=== PATIENT | male | born 1960 | race Caucasian/White ===

== ENCOUNTER 2016-09-16 00:39 | Emergency (ER) | payer OTHER ==
[~2016-09-16] VITALS: Ht 167.6 cm; Wt 81.3 kg
[~2016-09-16 00:39] MED LIST: ALBU1AER9 INH; ASPI325T45 PO; B-CO-27 PO; CHOL100041 PO; CLON1TAB3 PO; DIPH25CA37 PO; DOXE150C PO; FLNIN/ NAE; GABA-113 PO; GABA1CAP4 PO; LISD50CA4 PO; LPT40 PO; LSN25 PO; MULT-506 PO; OMEP20CA9 PO; POLYSOL4 OP; TNR25 PO; ZOLP10TA6 PO
[2016-09-16] MEDS ORDERED: METHYLPREDNISOLONE 125 MG VIAL IV STA (00:47)
[2016-09-16 00:48] VITALS: TEMP 37.1; O2SAT 98; Ht 167.6 cm; Wt 81.3 kg
[2016-09-16] MEDS ORDERED: ALBUT/IPRATROP 3MG/0.5MG NEB 3 ML VIAL INH ONE (01:00)
[2016-09-16] MEDS ORDERED: SODIUM CHLORIDE 0.9% 1000ML 1,000 ML IV ONE (01:00)
[2016-09-16 01:06] VITALS: PULSE 105; O2SAT 97
[2016-09-16] MEDS ORDERED: VNTHFA/IN INH (01:06)
[2016-09-16] MEDS ORDERED: ULT50 PO (01:06)
[2016-09-16] MEDS ORDERED: LISD70CA PO (01:06)
[2016-09-16] MEDS ORDERED: BND25 PO (01:06)
[2016-09-16] MEDS ORDERED: MIRT30TA3 PO (01:06)
[2016-09-16 01:23] LABS: BUN/CREATININE RATIO 5.3 (10-20); CALCIUM 9.3 mg/dl (8.5-10.1); CREATININE 0.78 mg/dl (0.60-1.40); POTASSIUM 3.7 mmol/L (3.5-5.1)
[2016-09-16 01:26] LABS: ALB/GLOB RATIO 0.9 (0.9-2)
[2016-09-16 01:50] LABS: HEMATOCRIT 44.5 % (42-52); MEAN CELL VOLUME 88.1 fL (80-100); MEAN CORPUSCULAR HEMOGLOBIN 31.9 pg (25-34); MEAN CORPUSCULAR HGB CONC 36.2 g/dl (32-36); MEAN PLATELET VOLUME 12.2 fL (7.4-10.4); PLATELET COUNT 127 K/uL (130-400); RED BLOOD COUNT 5.05 M/uL (4.7-6.1); WHITE BLOOD COUNT 8.93 K/uL (4.8-10.8)
[2016-09-16 01:52] LABS: BASO % 0.1 %; BASO ABS # 0.01 K/uL (0-0.2); COMPLETE YES; EOS % 3.6 %; IG% 0.2 %; LARGE PLATELETS 1+; LYMPH % 22.8 %; LYMPH ABS # 2.04 K/uL (1.2-3.4); MONO % 5.9 %; NEUT % 67.4 %; PLT ESTIMATE DECREASED
[2016-09-16] MEDS ORDERED: PRED50TA PO (02:12)
[2016-09-16] MEDS ORDERED: AZITTAB PO (02:12)
[2016-09-16 02:28] VITALS: BP 155/95; PULSE 114; O2SAT 97
--- NOTE | 2016-09-16 04:04 | EMERGENCY ROOM VISIT NOTE ---
History First contact with patient: 00:42 Chief Complaint: CHEST PAIN Stated Complaint: CHEST PAIN Nursing Triage Summary: arrived via amb with bls. pt c/o a cough 4 days has been taking alot of mucinex. c/o a 10 second period of left sided cp now resolved c/o lung pain with coughing. History of Present Illness The patient is a 56 year old male who presents to the Emergency Room with complaints of posttussive chest pain that began worsening tonight. The patient states he has had a persistent dry cough for the past 4 days. He has been using Mucinex at home without significant improvement of symptoms. The patient states that his symptoms persist for about 10 seconds after coughing. The patient has a history of anxiety and evidently has an appointment later today with his psychiatrist. He has not had fever or chills. He is without shortness of breath and has not taken anything at home for his symptoms. He states that he is not a smoker, however his does smoke. The patient rates his discomfort a 7/10. Review of Systems More than 10 systems were reviewed and otherwise negative with the exception of history of present illness. Past Medical/Surgical History Medical Problems: (1) Anxiety (2) COPD (chronic obstructive pulmonary disease) (3) Coronary artery disease (4) Dyslipidemia (5) Schizoaffective disorder Surgical Problems: (1) Status post cholecystectomy (2) Status post coronary artery stent placement Family History Cancer Diabetes mellitus Gallbladder disease Heart disease Hypertension Kidney disease Kidney stones Lung disease Seizures Social History Smoking Status: Never Smoker Alcohol Use: occasionally Marital Status: Housing Status: lives with family Occupation Status: unemployed Current/Historical Medications Scheduled Albuterol Hfa (Ventolin Hfa), 2 PUFFS INH Q6H Aspirin (Aspirin), 162 MG PO DAILY Atenolol (Atenolol), 25 MG PO DAILY Atorvastatin (Atorvastatin Calcium), 40 MG PO DAILY Azithromycin (Zithromax Z-Parish), 0 PO UD B-Complex W/ Folic Acid (B Complex Plus), 1 TAB PO DAILY Cholecalciferol (D 1000), 1,000 INTER.UNIT PO DAILY Clonazepam (Klonopin), 1 MG PO QID Fluticasone Propionate (Fluticasone Propionate), 2 SPRAYS SUJEY DAILY Gabapentin (Neurontin), 600 MG PO HS Gabapentin (Gabapentin), 300 MG PO BID Lisdexamfetamine Dimesylate (Vyvanse), 50 MG PO DAILY Lisdexamfetamine Dimesylate (Vyvanse), 70 MG PO DAILY Lisinopril (Lisinopril), 2.5 MG PO DAILY Mirtazapine (Remeron), 60 MG PO HS Multivitamin (Multivitamin), 1 TAB PO DAILY Omeprazole (Prilosec), 20 MG PO DAILY Prednisone (Prednisone), 50 MG PO DAILY Zolpidem Tartrate (Zolpidem Tartrate), 10 MG PO HS Scheduled PRN Diphenhydramine Hcl (Benadryl), 25 MG PO BID PRN for ALLERGIC REACTION Polyethylene Glycol-Propylene (Systane), 1 DROP OP UD PRN for Dry Eyes Tramadol HCl (Tramadol HCl), 50 MG PO Q8 PRN for Pain Allergies Coded Allergies: Chlorpromazine (Verified Allergy, Unknown, UNKNOWN, 09/16/16) Haloperidol (Verified Allergy, Unknown, 09/16/16) Physical Exam Vital Signs Date Time Temp Pulse Resp B/P Pulse Ox O2 Delivery O2 Flow Rate FiO2 09/16/16 02:28 114 20 155/95 97 Room Air 09/16/16 01:50 119 20 138/65 97 Room Air 09/16/16 01:28 110 20 134/113 100 Nebulizer 09/16/16 01:06 105 16 97 Room Air 09/16/16 00:48 37.1 122 22 132/104 98 Room Air 09/16/16 00:48 98 Room Air 09/16/16 00:46 117 Pain Rating (0-10): 5.0 Physical Exam VITALS: Vitals are noted on the nurse's note and reviewed by myself. Vital signs stable. GENERAL: Well-developed, well-nourished, white male, who is in no acute distress and resting comfortably. Patient is cooperative with the examination. HEAD: Normocephalic atraumatic. EARS: External ear normal. External auditory canals clear, tympanic membranes pearly baptiste without erythema or effusion bilaterally. EYES: Pupils equal round and reactive to light and accommodation. Conjunctivae without injection, sclerae without icterus. Extraocular movements intact. NOSE: Patent, turbinates without inflammation or discharge. MOUTH: Mucous membranes moist. Tonsils are not enlarged. Pharynx without erythema, blood, or exudate. Uvula midline. Airway patent. NECK: Supple without nuchal rigidity. No lymphadenopathy. No thyromegaly. Cervical spine is nontender. HEART: Tachycardic rate with regular rhythm. No murmur gallop or rub. LUNGS: Coarse breath sounds throughout with diffuse wheezing and rhonchi. No crackles or rales. Medical Decision & Procedures Laboratory Results 09/16/16 00:50 Red Blood Count 5.05, Mean Corpuscular Volume 88.1, Mean Corpuscular Hemoglobin 31.9, Mean Corpuscular Hemoglobin Concent 36.2, Mean Platelet Volume 12.2, Neutrophils (%) (Auto) 67.4, Lymphocytes (%) (Auto) 22.8, Monocytes (%) (Auto) 5.9, Eosinophils (%) (Auto) 3.6, Basophils (%) (Auto) 0.1, Neutrophils # (Auto) 6.01, Lymphocytes # (Auto) 2.04, Monocytes # (Auto) 0.53, Eosinophils # (Auto) 0.32, Basophils # (Auto) 0.01 09/16/16 00:50 Test 09/16/16 00:50 09/16/16 00:52 09/16/16 01:00 White Blood Count 8.93 K/uL (4.8-10.8) Red Blood Count 5.05 M/uL (4.7-6.1) Hemoglobin 16.1 g/dL (14.0-18.0) Hematocrit 44.5 % (42-52) Mean Corpuscular Volume 88.1 fL (80-100) Mean Corpuscular Hemoglobin 31.9 pg (25-34) Mean Corpuscular Hemoglobin Concent 36.2 g/dl (32-36) Platelet Count 127 K/uL (130-400) Mean Platelet Volume 12.2 fL (7.4-10.4) Neutrophils (%) (Auto) 67.4 % Lymphocytes (%) (Auto) 22.8 % Monocytes (%) (Auto) 5.9 % Eosinophils (%) (Auto) 3.6 % Basophils (%) (Auto) 0.1 % Neutrophils # (Auto) 6.01 K/uL (1.4-6.5) Lymphocytes # (Auto) 2.04 K/uL (1.2-3.4) Monocytes # (Auto) 0.53 K/uL (0.11-0.59) Eosinophils # (Auto) 0.32 K/uL (0-0.5) Basophils # (Auto) 0.01 K/uL (0-0.2) RDW Standard Deviation 40.4 fL (36.4-46.3) RDW Coefficient of Variation 12.7 % (11.5-14.5) Immature Granulocyte % (Auto) 0.2 % Immature Granulocyte # (Auto) 0.02 K/uL (0.00-0.02) Platelet Estimate DECREASED Large Platelets 1+ Anion Gap 14.0 mmol/L (3-11) Est Creatinine Clear Calc Drug Dose 107.1 ml/min Estimated GFR () 117.8 Estimated GFR (Non- 101.6 BUN/Creatinine Ratio 5.3 (10-20) Calcium Level 9.3 mg/dl (8.5-10.1) Total Bilirubin 0.5 mg/dl (0.2-1) Aspartate Amino Transf (AST/SGOT) 68 U/L (15-37) Alanine Aminotransferase (ALT/SGPT) 282 U/L (12-78) Alkaline Phosphatase 260 U/L (45-117) Total Protein 7.9 gm/dl (6.4-8.2) Albumin 3.8 gm/dl (3.4-5.0) Globulin 4.1 gm/dl (2.5-4.0) Albumin/Globulin Ratio 0.9 (0.9-2) Lipase 155 U/L (73-393) Bedside D-Dimer 165 ng/mlFEU (0-450) Bedside Troponin I 0.000 ng/ml (0-0.045) Influenza Type A Antigen Neg for Influ A (NEG) Influenza Type B Antigen Neg for Influ B (NEG) Medications Administered Medications (Trade) Dose Ordered Sig/Kristie Route Start Time Stop Time Status Last Admin Dose Admin Methylprednisolone Sodium Succinate 125 mg 125 mg NOW STAT IV 09/16/16 00:47 09/16/16 00:50 DC 09/16/16 01:01 125 MG Sodium Chloride (Nss 1000ml) 1,000 ml @ 999 mls/hr Q1H1M ONCE IV 09/16/16 01:00 09/16/16 02:00 DC 09/16/16 01:01 999 MLS/HR Albuterol/ Ipratropium (Duoneb) 12 ml NOW ONCE INH 09/16/16 01:00 09/16/16 01:01 DC 09/16/16 01:06 12 ML ED Course Physical exam and history were performed. Nursing notes and EMR were reviewed. Patient appears to have posttussive chest pain that brought him to the emergency department today. On examination the patient is mildly tachycardic but he does not appear toxic. He is with wheezing and rhonchi on lung exam. IV access was established and labs were obtained. EKG was performed and was sinus tachycardia without ST elevation or evidence of ischemia. The patient was given 125 mg IV Solu-Medrol and a DuoNeb was ordered. Chest x-ray was performed. The patient's blood work is as above and was reviewed. He does not have a significantly elevated white blood cell count, anemia, bandemia, or significant electrolyte imbalance. Troponin and d-dimer 1 are both negative. The patient does have a mild elevation of his transaminases, however he has had this several times in the past and this appears chronic. Chest x-ray was performed and reviewed by myself without significant obvious processes. Official x-ray report is pending at the time of this dictation. Overall the patient appears stable for discharge home. He appears to have acute bronchitis or possibly a COPD exacerbation. He is not hypoxic. The patient will be given a course of Zithromax and a course of prednisone for his symptoms. He does have an appointment later today, and was asked to keep this appointment. He was otherwise invited back to the ER with any new, worsening, or concerning symptoms. The chart was completed utilizing [employer] Speech Voice Recognition Software. Grammatical errors, random word insertions, pronoun errors, and incomplete sentences are an occasional consequence of this system due to software limitations, ambient noise, and hardware issues. Any formal questions or concerns about the content, text, or information contained within the body of this dictation should be directly addressed to the provider for clarification. . Medical Decision Differential diagnosis includes, but is not limited to: Myocardial infarction, dysrhythmia, pericarditis, pneumothorax, aortic aneurysm/dissection, DVT/PE, anxiety, GERD, PUD, electrolyte imbalance, thyroid disorder, pneumonia, bronchitis, pancreatitis, and others Impression Primary Impression: Acute bronchitis Departure Information Dispostion Home / Self-Care Condition GOOD Prescriptions Prednisone (Prednisone) 50 Mg Tab 50 MG PO DAILY for 4 Days, #4 TAB Prov: Kush Goldberg PA-C 09/16/16 Azithromycin (ZITHROMAX Z-PARISH) 250 Mg Tab 0 PO UD, #1 PKT 2 TABS DAY 1, THEN 1 TAB DAILY FOR 4 DAYS Prov: Kush Goldberg PA-C 09/16/16 Forms HOME CARE DOCUMENTATION FORM, IMPORTANT VISIT INFORMATION Patient Instructions My [facility] Additional Instructions You were seen and evaluated today on an emergency basis only. This is not a substitute for, or an effort to provide, complete comprehensive medical care. It is not possible to recognize and treat all injuries or illnesses in a single emergency department visit. For this reason it is recommended that you followup with your primary care physician this week for ongoing care and evaluation. Take Zithromax as directed on the packaging. Take prednisone daily for the next 4 days. You are welcome to return to the emergency department anytime with new, worsening, or concerning symptoms.
--- NOTE | 2016-09-16 06:32 | DIAGNOSTIC IMAGING REPORT ---
CHEST 2 VIEWS ROUTINE CLINICAL HISTORY: Cough. SOB. Dyspnea COMPARISON STUDY: 10/23/2015 FINDINGS: The bones soft tissues and hemidiaphragms are normal. The cardiomediastinal silhouette is normal. The lungs are clear. The pulmonary vasculature is normal. IMPRESSION: Negative chest. Electronically signed by: Mao Baxter M.D. 09/16/2016 6:31 AM Dictated Date/Time: 09/16/2016 6:31 AM
== END 2016-09-16 02:27 | disposition home or self-care (01) ==
LOC: EDBD 00:39 → C.EDB 00:40
DX: J20.9 Acute bronchitis, unspecified (principal); J44.9 Chronic obstructive pulmonary disease, unspecified; E78.5 Hyperlipidemia, unspecified; I25.10 Atherosclerotic heart disease of native coronary artery without angina pectoris; F41.9 Anxiety disorder, unspecified; F20.9 Schizophrenia, unspecified; Z98.61 Coronary angioplasty status; Z90.49 Acquired absence of other specified parts of digestive tract; Z79.82 Long term (current) use of aspirin; Z79.899 Other long term (current) drug therapy; Z88.8 Allergy status to other drugs, medicaments and biological substances; Z80.9 Family history of malignant neoplasm, unspecified; Z83.3 Family history of diabetes mellitus; Z82.49 Family history of ischemic heart disease and other diseases of the circulatory system; Z84.1 Family history of disorders of kidney and ureter; Z82.0 Family history of epilepsy and other diseases of the nervous system; Z83.79 Family history of other diseases of the digestive system

== ENCOUNTER 2016-12-08 13:54 | Emergency (ER) | payer OTHER ==
[~2016-12-08] VITALS: Ht 175.3 cm; Wt 80.0 kg
[~2016-12-08 13:54] MED LIST changes: -ALBU1AER9 INH; -DIPH25CA37 PO; +DIPH25CA5 PO; -DOXE150C PO; +LISD70CA PO; +MIRT30TA3 PO; +ULT50 PO; +VNTHFA/IN INH
[2016-12-08 14:04] VITALS: O2SAT 93; Ht 175.3 cm; Wt 80.0 kg
[2016-12-08] MEDS ORDERED: DOXE25CA2 PO (14:40)
[2016-12-08] MEDS ORDERED: SODIUM CHLORIDE 0.9% 1000ML 1,000 ML IV STA (15:01)
[2016-12-08] MEDS ORDERED: MoRPHine SULFATE 4 MG/ML 1 ML CARP\\VIAL IV STA (15:01)
[2016-12-08 15:10] LABS: BASO % 0.4 %; BASO ABS # 0.07 K/uL (0-0.2); COMPLETE YES; EOS % 2.7 %; HEMATOCRIT 47.9 % (42-52); IG% 0.4 %; LYMPH % 26.2 %; LYMPH ABS # 4.54 K/uL (1.2-3.4); MEAN CELL VOLUME 92.3 fL (80-100); MEAN CORPUSCULAR HEMOGLOBIN 32.6 pg (25-34); MEAN CORPUSCULAR HGB CONC 35.3 g/dl (32-36); MEAN PLATELET VOLUME 13.8 fL (7.4-10.4); MONO % 4.7 %; NEUT % 65.6 %; PLATELET COUNT 172 K/uL (130-400); RED BLOOD COUNT 5.19 M/uL (4.7-6.1); WHITE BLOOD COUNT 17.35 K/uL (4.8-10.8)
[2016-12-08 15:16] LABS: INR 0.9 (0.9-1.1); PARTIAL THROMBOPLASTIN RATIO 0.9
[2016-12-08 15:21] LABS: ALT/SGPT 262 U/L (12-78); AST/SGOT 331 U/L (15-37); BLOOD UREA NITROGEN 9 mg/dl (7-18); BUN/CREATININE RATIO 8.9 (10-20); CALCIUM 9.2 mg/dl (8.5-10.1); CARBON DIOXIDE 24 mmol/L (21-32); CHLORIDE 93 mmol/L (98-107); GLUCOSE 196 mg/dl (70-99); MAGNESIUM 2.6 mg/dl (1.8-2.4); POTASSIUM 3.5 mmol/L (3.5-5.1); SODIUM 131 mmol/L (136-145)
[2016-12-08 15:29] LABS: ALKALINE PHOSPHATASE 210 U/L (45-117); CKMB/CK RATIO 2.4 (0-3.0)
--- NOTE | 2016-12-08 15:34 | DIAGNOSTIC IMAGING REPORT ---
SINGLE VIEW CHEST CLINICAL HISTORY: Change in mental status. Weakness. FINDINGS: An AP, portable, upright chest radiograph is compared to study dated 09/16/2016. The examination is degraded by portable technique and patient rotation. The cardiomediastinal silhouette is unremarkable. Chronic interstitial thickening is unchanged. The lungs and pleural spaces are otherwise clear. No pneumothorax is seen. The bony thorax is grossly intact. IMPRESSION: No acute cardiopulmonary abnormality. Electronically signed by: Rivera oSto M.D. 12/08/2016 3:33 PM Dictated Date/Time: 12/08/2016 3:32 PM
--- NOTE | 2016-12-08 15:37 | DIAGNOSTIC IMAGING REPORT ---
CT SCAN OF THE BRAIN WITHOUT IV CONTRAST CLINICAL HISTORY: Generalized weakness. Change in mental status. COMPARISON STUDY: CT the brain dated 06/04/2013. TECHNIQUE: Unenhanced axial CT scan of the brain is performed from the vertex to the skull base. Automated dose control exposure was utilized. CT DOSE: 537.48 mGy.cm FINDINGS: Brain parenchyma: There is minimal periventricular microangiopathic disease. There is no hemorrhage, mass effect, or evidence of acute territorial ischemia by CT criteria. A choroid fissure cyst is incidentally noted on the right. Saba-white matter is preserved. No extra-axial fluid collection is seen. Ventricles, sulci, cisterns: Normal in configuration. Intracranial vasculature: There is atherosclerotic calcification of the cavernous carotid arteries. Calvarium: Unremarkable. Sinuses and mastoids: The visualized paranasal sinuses are clear. The mastoid air cells are well pneumatized. Orbits: Findings suggest a chronic right orbital floor fracture. The bony orbits are otherwise grossly intact. IMPRESSION: There is no hemorrhage, mass effect, or evidence of acute territorial ischemia by CT criteria. Electronically signed by: Rivera Soto M.D. 12/08/2016 3:36 PM Dictated Date/Time: 12/08/2016 3:33 PM
[2016-12-08 16:40] LABS: URINE APPEARANCE TURBID (CLEAR); URINE BILIRUBIN NEG (NEG); URINE COLOR DK YELLOW; URINE EPITHELIAL CELL AUTO >30 /lpf (0-5); URINE NITRITE NEG (NEG); UROBILINOGEN NEG (NEG); ZZUR CULT IF INDIC CLEAN CATCH NO
[2016-12-08 16:47] LABS: MANUAL MICROSCOPIC REQUIRED? NO; REVIEW REQ? YES
[2016-12-08 16:56] LABS: URINE MUCUS PRESENT (NONE PRSENT); URINE PATH CASTS 5-10 GRANULAR CASTS /lpf (0)
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
[2016-12-08 17:20] LABS: BENZODIAZEPINE, URINE NEG (NEG); COCAINE,URINE NEG (NEG); PHENCYCLIDINE, URINE NEG (NEG)
[2016-12-08 18:08] VITALS: BP 145/89; PULSE 88; TEMP 36.4; O2SAT 98
[2016-12-11 11:02] LABS: COD UR NEGATIVE NG/ML (CUTOFF=50); HYDROCOD UR NEGATIVE NG/ML (CUTOFF=50); HYDROMOR UR NEGATIVE NG/ML (CUTOFF=50); MORPHINE UR 1640 NG/ML (CUTOFF=50); NORHYDROCODONE CONF UR NEGATIVE NG/ML (CUTOFF=50); OXYMORPH UR NEGATIVE NG/ML (CUTOFF=50)
== END 2016-12-08 18:09 | disposition home or self-care (01) ==
LOC: EDBD 13:54 → C.EDA 13:55
DX: R56.9 Unspecified convulsions (principal); F41.9 Anxiety disorder, unspecified; I25.10 Atherosclerotic heart disease of native coronary artery without angina pectoris; J44.9 Chronic obstructive pulmonary disease, unspecified; E78.5 Hyperlipidemia, unspecified; R07.9 Chest pain, unspecified; F25.9 Schizoaffective disorder, unspecified; Z83.3 Family history of diabetes mellitus; Z82.49 Family history of ischemic heart disease and other diseases of the circulatory system; Z79.899 Other long term (current) drug therapy; Z82.0 Family history of epilepsy and other diseases of the nervous system; F17.200 Nicotine dependence, unspecified, uncomplicated; Z79.4 Long term (current) use of insulin

== ENCOUNTER → 2017-01-17 | Outpatient (CLI) | payer OTHER ==
[~2017-01-17] MED LIST changes: +BND25 PO; -DIPH25CA5 PO; +DOXE25CA2 PO; -LISD50CA4 PO
--- NOTE | 2017-01-17 17:17 | EEG Procedure Note ---
EEG Procedure Note Date of Service Jan 17, 2017. Start / End Times Start Time: 10:00am End Time: 10:21am Referring Physician Dinah Case History This is a 56-year-old male with seizure-like activity. EEG for further evaluation of seizure etiology. Updated Medication list was not provided by the patient Home Medication List Scheduled Albuterol Hfa (Ventolin Hfa), 2 PUFFS INH Q6H Aspirin (Aspirin), 162 MG PO DAILY Atenolol (Atenolol), 25 MG PO DAILY Atorvastatin (Atorvastatin Calcium), 40 MG PO DAILY B-Complex W/ Folic Acid (B Complex Plus), 1 TAB PO DAILY Cholecalciferol (D 1000), 1,000 INTER.UNIT PO DAILY Clonazepam (Klonopin), 1 MG PO TID Doxepin Hcl (Sinequan), 25 MG PO BID Fluticasone Propionate (Fluticasone Propionate), 2 SPRAYS SUJEY DAILY Gabapentin (Neurontin), 600 MG PO HS Gabapentin (Gabapentin), 300 MG PO BID Lisdexamfetamine Dimesylate (Vyvanse), 70 MG PO DAILY Lisinopril (Lisinopril), 2.5 MG PO DAILY Mirtazapine (Remeron), 60 MG PO HS Multivitamin (Multivitamin), 1 TAB PO DAILY Omeprazole (Prilosec), 20 MG PO BID Zolpidem Tartrate (Zolpidem Tartrate), 10 MG PO HS Scheduled PRN Diphenhydramine Hcl (Benadryl), 25 MG PO BID PRN for ALLERGIC REACTION Polyethylene Glycol-Propylene (Systane), 1 DROP OP UD PRN for Dry Eyes Tramadol HCl (Tramadol HCl), 50 MG PO Q8 PRN for Pain Description This is a 21 electrode EEG with a single channel dedicated to limited EKG. The electrodes were placed in accordance with the International 10-20 system. At the start of the recording the patient was in an awake state. Background was well organized and composed of symmetric mixed alpha and excess beta frequencies. There was a symmetric well-formed moderate amplitude 10-11 Hz posterior dominant rhythm that was reactive to eye opening and closure. Hyperventilation was not done. Intermittent photic stimulation at various frequencies produced no abnormalities. There was no state changes or sleep transients. Interpretation This is a normal awake only routine EEG. There was no electrographic seizures or epileptiform discharges. Clinical Correlation A normal EEG does not rule out epilepsy if there is a strong clinical suspicion. Excess beta frequencies can be seen with the use of certain medications such as benzodiazepines.
== END | disposition home or self-care (01) ==
LOC: C.NEUR 09:08
PROVIDERS: ATTEND Physician Assistant
DX: R56.9 Unspecified convulsions (principal)

== ENCOUNTER → 2017-02-12 | Outpatient (CLI) | payer OTHER ==
[~2017-02-12] MED LIST changes: +GADAVIST IV PRN
--- NOTE | 2017-02-12 12:02 | DIAGNOSTIC IMAGING REPORT ---
BRAIN COMBO FOR SEIZURE CLINICAL HISTORY: R56.9 Seizure mental status change COMPARISON STUDY: No previous studies for comparison. TECHNIQUE: Utilizing a 1.5 Kassandra magnet and dedicated coil, multiplanar, multiecho imaging of the brain was performed pre and postcontrast administration. IV administration of 8.5 mL of Gadavist contrast was uneventful. Thin cut coronal T2 imaging was performed according to seizure protocol. FINDINGS: Diffusion images show no acute ischemic process. Ventricular system is midline. Signal characteristics of the cerebellar as well as cerebral hemispheres are unremarkable. No abnormal postcontrast enhancement. Minimal chronic small vessel change. Sella and parasellar regions are unremarkable. Mild mucosal thickening of the sinuses. IMPRESSION: 1. Negative MRI of the brain. 2. Mild mucosal thickening of the sinuses. The above report was generated using voice recognition software. It may contain grammatical, syntax or spelling errors. Electronically signed by: Mao Baxter M.D. 02/12/2017 12:01 PM Dictated Date/Time: 02/12/2017 11:50 AM
== END | disposition home or self-care (01) ==
LOC: C.MRIBC 10:47
PROVIDERS: ATTEND Physician Assistant
DX: R56.9 Unspecified convulsions (principal)

== ENCOUNTER 2017-05-22 01:07 | Emergency (ER) | payer OTHER ==
[~2017-05-22] VITALS: Ht 175.3 cm; Wt 80.5 kg
[~2017-05-22 01:07] MED LIST changes: -BND25 PO; +DIPH25CA5 PO; -GADAVIST IV PRN
[2017-05-22 01:11] VITALS: TEMP 36.6; Ht 175.3 cm; Wt 80.5 kg
[2017-05-22] MEDS ORDERED: CLONAZEPAM 1 MG TAB PO STA (01:33)
[2017-05-22] MEDS ORDERED: SPHSL5 SL (01:35)
[2017-05-22] MEDS ORDERED: B-COTAB18 PO (01:39)
[2017-05-22] MEDS ORDERED: CLONAZEPAM 0.5 MG TAB ONE (01:41)
--- NOTE | 2017-05-22 01:53 | EMERGENCY ROOM VISIT NOTE ---
History First contact with patient: 01:15 Chief Complaint: OTHER COMPLAINT Stated Complaint: ANXIETY History of Present Illness The patient is a 57 year old male who presents to the Emergency Room with complaints of feeling anxious about having a seizure as his currently is sick. Patient states he's also out of his clonazepam. He states he takes 3 mg of this at night to help him sleep. Dr. Nino from psychiatry prescribes this medication to him. Patient states he just was to make sure he is okay. Patient denies chest pain, dyspnea, suicidal or homicidal ideations, hallucinations, delusions, abdominal pain, fever, chills or any other medical complaints. Review of Systems See HPI for pertinent positives & negatives. A total of 10 systems reviewed and were otherwise negative. Past Medical/Surgical History Medical Problems: (1) Anxiety (2) COPD (chronic obstructive pulmonary disease) (3) Coronary artery disease (4) Dyslipidemia (5) Schizoaffective disorder (6) Seizure Surgical Problems: (1) Status post cholecystectomy (2) Status post coronary artery stent placement Family History Cancer Diabetes mellitus Gallbladder disease Heart disease Hypertension Kidney disease Kidney stones Lung disease Seizures Social History Smoking Status: Former Smoker Alcohol Use: occasionally Marital Status: Housing Status: lives with family Occupation Status: unemployed Current/Historical Medications Scheduled Asenapine Maleate (Saphris), 5 MG SL BID Aspirin (Aspirin), 162 MG PO DAILY Atenolol (Atenolol), 25 MG PO DAILY Atorvastatin (Atorvastatin Calcium), 40 MG PO DAILY B-Complex Vitamins (Vitamin B Complex), 1 TAB PO DAILY Cholecalciferol (D 1000), 1,000 INTER.UNIT PO DAILY Clonazepam (Klonopin), 1 MG PO TID Doxepin Hcl (Sinequan), 25 MG PO BID Fluticasone Propionate (Fluticasone Propionate), 2 SPRAYS SUJEY DAILY Gabapentin (Neurontin), 600 MG PO HS Gabapentin (Gabapentin), 300 MG PO BID Lisdexamfetamine Dimesylate (Vyvanse), 70 MG PO DAILY Lisinopril (Lisinopril), 2.5 MG PO DAILY Mirtazapine (Remeron), 60 MG PO HS Multivitamin (Multivitamin), 1 TAB PO DAILY Omeprazole (Prilosec), 20 MG PO BID Zolpidem Tartrate (Zolpidem Tartrate), 10 MG PO HS Scheduled PRN Albuterol Hfa (Ventolin Hfa), 2 PUFFS INH Q6H PRN for SOB/Wheezing Diphenhydramine Hcl (Benadryl), 25 MG PO BID PRN for ALLERGIC REACTION Polyethylene Glycol-Propylene (Systane), 1 DROP OP UD PRN for Dry Eyes Tramadol HCl (Tramadol HCl), 50 MG PO Q8 PRN for Pain Physical Exam Vital Signs Date Time Temp Pulse Resp B/P (MAP) Pulse Ox O2 Delivery O2 Flow Rate FiO2 05/22/17 01:11 36.6 87 18 139/91 97 Room Air Physical Exam VITALS: Vitals are noted on the nurse's note and reviewed by myself. Vital signs stable. GENERAL: Pleasant male anxious-appearing, in no acute distress, nondiaphoretic, well-developed well-nourished. SKIN: The skin was without rashes, erythema, edema, or bruising. There is no tenting of the skin. Capillary reflex less than 2 seconds. HEAD: Normocephalic atraumatic. EARS: External auditory canals clear, tympanic membranes pearly baptiste without erythema or effusion bilaterally. EYES: Pupils equal round and reactive to light and accommodation. Conjunctivae without injection, sclerae without icterus. Extraocular movements intact. NOSE: Patent, turbinates without inflammation or discharge. MOUTH: Mucous membranes moist. Pharynx without erythema or exudate. Uvula midline. Airway patent. Tongue does not deviate. NECK: Supple without nuchal rigidity. No lymphadenopathy. No thyromegaly. Cervical spine is nontender. No JVD. HEART: Regular rate and rhythm LUNGS: Clear to auscultation bilaterally without wheezes, rales or rhonchi. No dullness to percussion. No retractions or accessory muscle use. ABDOMEN: Positive bowel sounds x 4. Normal tympanic percussion. Soft, nontender, without masses or organomegaly. Tubbs sign negative. No guarding or rebound tenderness. MUSCULOSKELETAL: No muscle atrophy, erythema, or edema noted. NEURO: Patient was alert and oriented to person place and time. Normal sensation to light and sharp touch. No focal neurological deficits. Psych: Anxious appearing pleasant and cooperative Medical Decision & Procedures Medications Administered Medications (Trade) Dose Ordered Sig/Kristie Route Start Time Stop Time Status Last Admin Dose Admin Clonazepam (Klonopin Tab) 1 mg NOW STAT PO 05/22/17 01:33 05/22/17 01:34 DC 05/22/17 01:42 1 MG ED Course Prior records/ancillary studies reviewed. Triage Nursing notes reviewed. The patient's history was concerning for feeling anxious Differential diagnosis: Etiologies such as mood disorder, infection, hypoglycemia, electrolyte abnormalities, cardiac sources, intracerebral event, toxicologic, neurologic, as well as others were entertained. Physical examination: The physical examination was performed as above and was completely benign. No emergent medical pathologies were noted. ER treatment provided: Clonazepam On reassessment the patient felt better. Diagnostic interpretation by me: No diagnostic studies were performed based upon the history and physical examination. Exam and history seem consistent with anxiety over the fact that his is sick and he is out of his clonazepam. He is worried that he might have a seizure. I informed him that he might have another seizure and his would be able to call 911 if this did occur. He was agreeable and understanding to this. He was advised to obtain all his control sentences from his psychiatrist and family care doctor. Patient was neurovascularly and neurologically intact. He is well-appearing. Patient had no suicidal or homicidal ideations. By the evaluation outlined above emergent etiologies such as infection, hypoglycemia, electrolyte abnormalities, cardiac sources, intracerebral event, toxicologic, neurologic,as well as others were deemed relatively unlikely. It appears the patient is dealing with a psychiatric disturbance. The pt informed about the findings as listed above. All questions were answered and pleased with the treatment. Return instructions were outlined and the patient was discharged in stable condition. Case reviewed with my attending Referral: The patient was referred back to their primary care physician and psychiatrist for follow-up in 2 to 3 days for a recheck of the current condition. Medical Decision As above [place] Drug Monitoring [place] Search Results: patient reviewed within database, see additional documentation (patient is prescribed chronic medications of clonazepam, Ambien, tramadol and Vyvanse) Medication Reconcilliation Current Medication List: was personally reviewed by me Blood Pressure Screening Patient's blood pressure: Normal blood pressure Impression Primary Impression: Anxiety Departure Information Dispostion Home / Self-Care Condition GOOD Referrals Mao Jones M.D. (PCP) Patient Instructions My [facility] Additional Instructions DO NOT drive, drink alcohol, operate machinery, or perform dangerous activities today. You were given medications in the ER that can affect your ability to safely function or operate a vehicle. Continue your current medications. Return to the ER for severe anxiety or depression, thoughts of hurting yourself or others, inability to function, hallucinations, worsening of your condition, or as needed. Follow up with your primary care physician and psychiatry this week for a recheck of your current condition and continued care.
[2017-05-22 02:13] VITALS: BP 124/84; PULSE 84; O2SAT 99
== END 2017-05-22 02:14 | disposition home or self-care (01) ==
LOC: EDBD 01:07 → C.EDA 01:09
DX: F41.9 Anxiety disorder, unspecified (principal); J44.9 Chronic obstructive pulmonary disease, unspecified; I25.10 Atherosclerotic heart disease of native coronary artery without angina pectoris; E78.5 Hyperlipidemia, unspecified; F25.9 Schizoaffective disorder, unspecified; Z90.49 Acquired absence of other specified parts of digestive tract; Z98.61 Coronary angioplasty status; Z86.69 Personal history of other diseases of the nervous system and sense organs; Z87.891 Personal history of nicotine dependence; Z83.3 Family history of diabetes mellitus; Z82.49 Family history of ischemic heart disease and other diseases of the circulatory system; Z84.1 Family history of disorders of kidney and ureter; Z82.0 Family history of epilepsy and other diseases of the nervous system; Z79.82 Long term (current) use of aspirin; Z79.899 Other long term (current) drug therapy

== ENCOUNTER 2017-05-28 18:24 | Emergency (ER) | payer OTHER ==
[~2017-05-28] VITALS: Ht 175.3 cm; Wt 83.6 kg
[~2017-05-28 18:24] MED LIST changes: -B-CO-27 PO; +B-COTAB18 PO; +SPHSL5 SL
[2017-05-28 18:32] VITALS: TEMP 36.6; Ht 175.3 cm; Wt 83.6 kg
[2017-05-28] MEDS ORDERED: ONDANSETRON INJ 2 MG/ML 2 ML VIAL IV STA ×2 (19:15→20:39)
[2017-05-28] MEDS ORDERED: MULTI-VITAMIN INFUSION INJ 10 ML, THIAMINE HCL INJ 100 MG, FoLIC ACID INJ 1 MG in SODIU... IV ONE (19:15)
[2017-05-28] MEDS ORDERED: CLONAZEPAM 0.5 MG TAB PO STA (19:15)
[2017-05-28] MEDS ORDERED: DOXE100C4 PO (19:32)
[2017-05-28 19:42] LABS: BASO % 0.3 %; BASO ABS # 0.03 K/uL (0-0.2); COMPLETE YES; EOS % 3.4 %; HEMATOCRIT 42.7 % (42-52); IG% 0.3 %; LYMPH % 20.1 %; LYMPH ABS # 2.07 K/uL (1.2-3.4); MEAN CELL VOLUME 89.5 fL (80-100); MEAN CORPUSCULAR HGB CONC 34.7 g/dl (32-36); MEAN PLATELET VOLUME 11.4 fL (7.4-10.4); MONO % 6.4 %; NEUT % 69.5 %; PLATELET COUNT 135 K/uL (130-400); RED BLOOD COUNT 4.77 M/uL (4.7-6.1); WHITE BLOOD COUNT 10.31 K/uL (4.8-10.8)
[2017-05-28 19:52] LABS: PARTIAL THROMBOPLASTIN RATIO 0.9; PROTHROMBIN TIME (PATIENT) 10.2 SECONDS (9.0-12.0)
[2017-05-28 20:04] LABS: BUN/CREATININE RATIO 9.7 (10-20); CALCIUM 9.2 mg/dl (8.5-10.1); CREATININE 0.94 mg/dl (0.60-1.40); MAGNESIUM 2.1 mg/dl (1.8-2.4); POTASSIUM 3.7 mmol/L (3.5-5.1)
[2017-05-28 20:07] LABS: ALB/GLOB RATIO 1.2 (0.9-2)
--- NOTE | 2017-05-28 21:16 | EMERGENCY ROOM VISIT NOTE ---
ED Visit Note First contact with patient: 18:52 I have personally seen and evaluated the patient with the physician assistant scientist. I agree with the diagnostic/management decisions and have personally been involved in these decisions and agree with the diagnosis.
[2017-05-28 21:43] VITALS: BP 133/91; PULSE 75; O2SAT 98
--- NOTE | 2017-05-29 20:29 | EMERGENCY ROOM VISIT NOTE ---
History First contact with patient: 18:52 Chief Complaint: SEIZURE Stated Complaint: SEIZURE Nursing Triage Summary: Patient had a history in December. Tonight states patient was sitting in a recliner and had arms out straight and started to shake and have a seizure. After seizure patient had snoring respirations but not is awake alert and oriented but complaining of feeling exhausted. Patient states he drinks beer daily, last drink yesterday. History of Present Illness The patient is a 57 year old male who presents to the Emergency Room with complaints of seizure that occurred at home about one hour ago. The patient has had seizures in the past, and this episode was similar to a previous seizure that he had about 5 months ago. The patient was seated in a lazy boy recliner, and evidently put his arms straight outwards, became stiff, and started shaking. The event was witnessed by the patient's who contacted EMS. The patient has evidently followed with neurology for this, and he is not currently on medication as his symptoms are felt to be related to chronic alcohol use/abuse. The patient admits to drinking at least 48 ounces of beer every day. He also follows with a psychiatrist who prescribes him clonazepam 3 times daily. The patient completed that prescription of clonazepam and has not had it for some weeks. He did not drink any alcohol today. The patient is not complaining of headache, neck pain, chest pain, abdominal pain, or other injury. He does report muscle fatigue, but no other concerns. Review of Systems More than 10 systems were reviewed and otherwise negative with the exception of history of present illness. Past Medical/Surgical History Medical Problems: (1) Anxiety (2) COPD (chronic obstructive pulmonary disease) (3) Coronary artery disease (4) Dyslipidemia (5) Schizoaffective disorder (6) Seizure Surgical Problems: (1) Status post cholecystectomy (2) Status post coronary artery stent placement Family History Cancer Diabetes mellitus Gallbladder disease Heart disease Hypertension Kidney disease Kidney stones Lung disease Seizures Social History Smoking Status: Current Every Day Smoker Alcohol Use: occasionally Marital Status: Housing Status: lives with family Occupation Status: unemployed Current/Historical Medications Scheduled Asenapine Maleate (Saphris), 5 MG SL BID Aspirin (Aspirin), 162 MG PO DAILY Atenolol (Atenolol), 25 MG PO DAILY Atorvastatin (Atorvastatin Calcium), 40 MG PO DAILY B-Complex Vitamins (Vitamin B Complex), 1 TAB PO DAILY Cholecalciferol (D 1000), 1,000 INTER.UNIT PO DAILY Clonazepam (Klonopin), 1 MG PO TID Doxepin Hcl (Doxepin), 100 MG PO HS Fluticasone Propionate (Fluticasone Propionate), 2 SPRAYS SUJEY DAILY Gabapentin (Neurontin), 600 MG PO HS Gabapentin (Gabapentin), 300 MG PO BID Lisdexamfetamine Dimesylate (Vyvanse), 70 MG PO DAILY Lisinopril (Lisinopril), 2.5 MG PO DAILY Mirtazapine (Remeron), 60 MG PO HS Multivitamin (Multivitamin), 1 TAB PO DAILY Omeprazole (Prilosec), 20 MG PO QAM Zolpidem Tartrate (Zolpidem Tartrate), 10 MG PO HS Scheduled PRN Diphenhydramine Hcl (Benadryl), 25 MG PO BID PRN for ALLERGIC REACTION Polyethylene Glycol-Propylene (Systane), 1 DROP OP UD PRN for Dry Eyes Tramadol HCl (Tramadol HCl), 50 MG PO Q8 PRN for Pain Physical Exam Vital Signs Date Time Temp Pulse Resp B/P (MAP) Pulse Ox O2 Delivery O2 Flow Rate FiO2 05/28/17 21:43 75 18 133/91 98 05/28/17 20:17 91 18 139/94 98 Nasal Cannula 2.0 05/28/17 18:38 Room Air 05/28/17 18:34 106 05/28/17 18:32 36.6 101 16 187/102 92 Room Air Physical Exam VITALS: Vitals are noted on the nurse's note and reviewed by myself. Vital signs with initial hypertension that improved. GENERAL: Anxious white male who is cooperative. GCS 15. HEAD: Normocephalic atraumatic. EARS: External ear normal. External auditory canals clear, tympanic membranes pearly baptiste without erythema or effusion bilaterally. EYES: Pupils equal round and reactive to light and accommodation. Conjunctivae without injection, sclerae without icterus. Extraocular movements intact. NOSE: Patent, turbinates without inflammation or discharge. MOUTH: Mucous membranes moist. Tonsils are not enlarged. Pharynx without erythema, blood, or exudate. Uvula midline. Airway patent. No injury to the tongue. NECK: Supple without nuchal rigidity. No lymphadenopathy. No thyromegaly. Cervical spine is nontender. HEART: Regular rate and rhythm without murmurs gallops or rubs. LUNGS: Clear to auscultation bilaterally without wheezes, rales or rhonchi. No retractions or accessory muscle use. ABDOMEN: Positive normal bowel sounds x 4. Soft, nontender, without masses or organomegaly. No guarding or rebound tenderness. MUSCULOSKELETAL: No muscle atrophy, erythema, or edema noted. Full range of motion without joint tenderness in all extremities. NEURO: Patient was alert and oriented to person place and time. CN II through XII grossly intact. No focal neurological deficits SKIN: The skin was without rashes, erythema, edema, or bruising. Capillary reflex less than 2 seconds. Medical Decision & Procedures Laboratory Results 05/28/17 19:28 Red Blood Count 4.77, Mean Corpuscular Volume 89.5, Mean Corpuscular Hemoglobin 31.0, Mean Corpuscular Hemoglobin Concent 34.7, Mean Platelet Volume 11.4, Neutrophils (%) (Auto) 69.5, Lymphocytes (%) (Auto) 20.1, Monocytes (%) (Auto) 6.4, Eosinophils (%) (Auto) 3.4, Basophils (%) (Auto) 0.3, Neutrophils # (Auto) 7.17, Lymphocytes # (Auto) 2.07, Monocytes # (Auto) 0.66, Eosinophils # (Auto) 0.35, Basophils # (Auto) 0.03 05/28/17 19:28 Test 05/28/17 19:28 White Blood Count 10.31 K/uL (4.8-10.8) Red Blood Count 4.77 M/uL (4.7-6.1) Hemoglobin 14.8 g/dL (14.0-18.0) Hematocrit 42.7 % (42-52) Mean Corpuscular Volume 89.5 fL (80-100) Mean Corpuscular Hemoglobin 31.0 pg (25-34) Mean Corpuscular Hemoglobin Concent 34.7 g/dl (32-36) Platelet Count 135 K/uL (130-400) Mean Platelet Volume 11.4 fL (7.4-10.4) Neutrophils (%) (Auto) 69.5 % Lymphocytes (%) (Auto) 20.1 % Monocytes (%) (Auto) 6.4 % Eosinophils (%) (Auto) 3.4 % Basophils (%) (Auto) 0.3 % Neutrophils # (Auto) 7.17 K/uL (1.4-6.5) Lymphocytes # (Auto) 2.07 K/uL (1.2-3.4) Monocytes # (Auto) 0.66 K/uL (0.11-0.59) Eosinophils # (Auto) 0.35 K/uL (0-0.5) Basophils # (Auto) 0.03 K/uL (0-0.2) RDW Standard Deviation 40.2 fL (36.4-46.3) RDW Coefficient of Variation 12.3 % (11.5-14.5) Immature Granulocyte % (Auto) 0.3 % Immature Granulocyte # (Auto) 0.03 K/uL (0.00-0.02) Prothrombin Time 10.2 SECONDS (9.0-12.0) Prothromb Time International Ratio 1.0 (0.9-1.1) Activated Partial Thromboplast Time 23.3 SECONDS (21.0-31.0) Partial Thromboplastin Ratio 0.9 Anion Gap 7.0 mmol/L (3-11) Est Creatinine Clear Calc Drug Dose 87.8 ml/min Estimated GFR () 104.6 Estimated GFR (Non- 90.3 BUN/Creatinine Ratio 9.7 (10-20) Calcium Level 9.2 mg/dl (8.5-10.1) Magnesium Level 2.1 mg/dl (1.8-2.4) Total Bilirubin 0.4 mg/dl (0.2-1) Aspartate Amino Transf (AST/SGOT) 181 U/L (15-37) Alanine Aminotransferase (ALT/SGPT) 307 U/L (12-78) Alkaline Phosphatase 151 U/L (45-117) Total Creatine Kinase 77 U/L (39-308) Total Protein 7.4 gm/dl (6.4-8.2) Albumin 4.0 gm/dl (3.4-5.0) Globulin 3.4 gm/dl (2.5-4.0) Albumin/Globulin Ratio 1.2 (0.9-2) Ethyl Alcohol mg/dL < 3.0 mg/dl (0-3) Medications Administered Medications (Trade) Dose Ordered Sig/Kristie Route Start Time Stop Time Status Last Admin Dose Admin Multivitamins 10 ml/Thiamine HCl 100 mg/Folic Acid 1 mg/Sodium Chloride 1,011.2 ml @ 999 mls/ hr Q1H1M ONCE IV 05/28/17 19:15 05/28/17 20:15 DC 05/28/17 19:52 999 MLS/HR Clonazepam (Klonopin Tab) 1 mg NOW STAT PO 05/28/17 19:15 05/28/17 19:18 DC 05/28/17 19:24 1 MG Ondansetron HCl (Zofran Inj) 4 mg NOW STAT IV 05/28/17 20:39 05/28/17 20:40 DC 05/28/17 20:44 4 MG ED Course Physical exam and history were performed. Nursing notes, EMR, and Medication List were personally reviewed. Patient appears to have had a seizure earlier today. The patient has a history of seizures in the past. The patient is currently not medicated for seizures, as his symptoms are felt to be related to alcohol use. IV access was established and labs were obtained. The patient was given a banana bag here in the department. He states that he has not had his evening dose of clonazepam, and this was provided here in the ER. The patient was cared for under seizure precautions and he was placed on a cardiac cath lab radiology technologist. The case was discussed with my attending physician, Dr. Crowe, who also independently evaluated the patient, and remain involved in care and decision making. The patient's blood work is as above and was reviewed. He does not have a significantly elevated white blood count, gross anemia, bandemia, or significant electrolyte imbalance. Transaminases are nondiagnostic. CK was normal. Alcohol was negative. His other testing was essentially unremarkable. The patient was monitored for a few hours here in the emergency department without any relapse of his symptoms. Overall he does appear stable for discharge home. His car license form has a very been completed, and he is plugged in with neurology. He will need to follow-up with them again regarding his seizures. Of note, the patient requested that I refill several controlled substances for him including clonazepam and Ambien. The patient has made this request of us here in the ER previously, and I re-explained to him that we are not able to provide him these medications. The patient must follow with his primary care physician or specialist for this service. The patient, and family, were given instructions as below and otherwise invited back to ER with any new, worsening, or concerning symptoms. The chart was completed utilizing [employer] Speech Voice Recognition Software. Grammatical errors, random word insertions, pronoun errors, and incomplete sentences are an occasional consequence of this system due to software limitations, ambient noise, and hardware issues. Any formal questions or concerns about the content, text, or information contained within the body of this dictation should be directly addressed to the provider for clarification. . Medical Decision Differential diagnosis: Etiologies such as infection, hypoglycemia, electrolyte abnormalities, cardiac sources, intracerebral event, trauma, toxicologic, neurologic, as well as others were entertained. [place] Drug [place] Search Results: patient reviewed within database Drug Monitoring Findings: 49 prescriptions for controlled substances in the past year Blood Pressure Screening Blood pressure disposition: Elevated BP felt to be situational Impression Primary Impression: Seizure Departure Information Dispostion Home / Self-Care Condition FA[employer] Forms HOME CARE DOCUMENTATION FORM, IMPORTANT VISIT INFORMATION Patient Instructions My [facility] [address] Additional Instructions You were seen and evaluated today on an emergency basis only. This is not a substitute for, or an effort to provide, complete comprehensive medical care. It is not possible to recognize and treat all injuries or illnesses in a single emergency department visit. For this reason it is recommended that you followup with your neurology group for ongoing care and evaluation. Continue your medications at home as prescribed. You are welcome to return to the emergency department anytime with new, worsening, or concerning symptoms.
== END 2017-05-28 21:40 | disposition home or self-care (01) ==
LOC: EDBD 18:24 → C.EDC 18:25
DX: R56.9 Unspecified convulsions (principal); F41.9 Anxiety disorder, unspecified; J44.9 Chronic obstructive pulmonary disease, unspecified; I25.10 Atherosclerotic heart disease of native coronary artery without angina pectoris; E78.5 Hyperlipidemia, unspecified; F25.9 Schizoaffective disorder, unspecified; Z80.9 Family history of malignant neoplasm, unspecified; Z83.3 Family history of diabetes mellitus; Z83.79 Family history of other diseases of the digestive system; Z84.1 Family history of disorders of kidney and ureter; Z83.6 Family history of other diseases of the respiratory system; F17.210 Nicotine dependence, cigarettes, uncomplicated; Z79.82 Long term (current) use of aspirin; Z79.899 Other long term (current) drug therapy

== ENCOUNTER 2018-12-26 21:02 | Observation (INO) ==
[2018-12-26] MEDS ORDERED: fentaNYL citrate 100 MCG/2 ML VIAL IV STA (21:23)
[2018-12-26] MEDS ORDERED: NITROGLYCERIN 2% OINTMENT 30GM TUBE EXT STA (21:23)
[2018-12-26] MEDS ORDERED: ONDANSETRON INJ 2 MG/ML 2 ML VIAL IV STA (21:23)
[2018-12-26 21:30] LABS: Basophils # (auto) 0.03 K/uL (0-0.2); Basophils % (auto) 0.4 %; Eosinophils # (auto) 0.48 K/uL (0-0.5); Eosinophils % (auto) 5.8 %; Hematocrit (blood only) 41.8 % (42-52); Hemoglobin 14.6 g/dL (14.0-18.0); Immature Granulocytes # (auto) 0.03 K/uL (0.00-0.02); Immature Granulocytes % (auto) 0.4 %; Lymphocytes # (auto) 2.62 K/uL (1.2-3.4); Lymphocytes % (auto) 31.9 %; Mean Corpuscular Hgb Conc 34.9 g/dL (32-36); Mean Corpuscular Volume 87.8 fL (80-100); Mean Platelet Volume 12.3 fL (7.4-10.4); Monocytes # (auto) 0.52 K/uL (0.11-0.59); Monocytes % (auto) 6.3 %; Neutrophils # (auto) 4.53 K/uL (1.4-6.5); Neutrophils % (auto) 55.2 %; Platelet Count 135 K/uL (130-400); RDW Coefficient of Variation 12.8 % (11.5-14.5); RDW Standard Deviation 40.9 fL (36.4-46.3); Red Blood Count 4.76 M/uL (4.7-6.1); White Blood Count 8.21 K/uL (4.8-10.8)
[2018-12-26 21:37] LABS: BUN Creatinine Ratio 14.8 (10-20); Calcium 9.5 mg/dl (8.5-10.1); Creatinine Clr Calc Pharmacy 104.5 ml/min; Est GFR (African American) 116.1; Est GFR (Non-African American) 100.2; Potassium 3.9 mmol/L (3.5-5.1)
[2018-12-26 21:40] LABS: Albumin Globulin Ratio 1.1 (0.9-2); Bilirubin,Total 0.4 mg/dl (0.2-1); Globulin 3.8 gm/dl (2.5-4.0); Total Protein 7.8 gm/dl (6.4-8.2)
--- NOTE | 2018-12-26 21:40 | XRay Report ---
XR chest 1V portable CLINICAL HISTORY: Chest Pain COMPARISON STUDY: Chest radiograph July 10, 2018. FINDINGS: Lung volumes are diminished. Lungs are clear. There is no pneumothorax or pleural effusion. Cardiac size is normal. Mediastinal contours are normal. There is no evidence for pulmonary edema. IMPRESSION: Low lung volumes. No acute cardiopulmonary findings. Electronically signed by: Thiago Kirby M.D. 12/26/2018 9:38 PM
[2018-12-26 23:26] LABS: Partial Thromboplastin Ratio 0.9
--- NOTE | 2018-12-26 23:53 | Emergency Department Note ---
Entered by Kay Hayes acting as a scribe for Ector Villa MD History of Present Illness General Chief complaint: Chest Pain Source: patient History of Present Illness Onset (ago): hour(s) (just prior to arrival) Location: chest Radiation: non-radiation Pain Consistency: + other (persistent ) Maximum Pain Intensity: 6 Current Pain Intensity: 5 Quality: + burning and + stabbing Associated symptoms: + diaphoresis, + shortness of breath and + other (negative leg swelling or pain ) Treatments prior to arrival: other (Nitro ) The patient is a 58 year old male who presents to the Emergency Room with complaints of persistent chest pain that began just prior to arrival. The patient states that he feels as though the muscles in his chest are burning and stabbing. The patient rates his pain at a 5/10 currently, and states that his pain was previously 8/10 prior to getting Nitro by EMS. The patient states that he feels short of breath and was sweating when his pain began. He states that he was exerting himself somewhat while doing housework when his pain began. The patient denies radiation of his pain, and states that his symptoms are not similar to his prior episode of GA. The patient denies leg swelling or pain. He denies a history of blood clots. Home Medications Home Medications Medication Instructions Recorded Confirmed Type aspirin 162 mg PO BID 07/10/18 12/26/18 History atenolol 25 mg PO DAILY 07/10/18 12/26/18 History atorvastatin 40 mg PO DAILY 07/10/18 12/26/18 History cholecalciferol (vitamin D3) 1,000 unit PO DAILY 07/10/18 12/26/18 History [Vitamin D3] doxepin 100 mg PO HS 07/10/18 12/26/18 History fluticasone propionate 2 spray INTRANASAL DAILY 07/10/18 12/26/18 History gabapentin 300 mg PO BID 07/10/18 12/26/18 History lisdexamfetamine [Vyvanse] 70 mg PO DAILY 07/10/18 12/26/18 History lisinopril 2.5 mg PO DAILY 07/10/18 12/26/18 History mirtazapine 60 mg PO HS 07/10/18 12/26/18 History multivitamin 1 tab PO DAILY 07/10/18 12/26/18 History nitroglycerin 0.4 mg SUBLINGUAL UD PRN 07/10/18 12/26/18 History omeprazole 20 mg PO BID 07/10/18 12/26/18 History tramadol 50 mg PO Q6 PRN 07/10/18 12/26/18 History vitamin B complex 1 tab PO DAILY 07/10/18 12/26/18 History meloxicam 15 mg tablet 15 mg PO DAILY 09/15/18 12/26/18 History gabapentin 300 mg capsule 600 mg PO HS 12/15/18 12/26/18 History Allergies Allergy/AdvReac Type Severity Reaction Status Date / Time Iodinated Contrast- Oral and Allergy Intermediate nausea , Verified 12/26/18 22:02 IV Dye vomiting and vertigo chlorpromazine Allergy Unknown UNKNOWN Verified 12/26/18 22:02 haloperidol Allergy Unknown Unknown Verified 12/26/18 22:02 Past Med/Surg History Medical History ADHD (Chronic) Asperger syndrome (Chronic) Schizoaffective disorder (Chronic) Anxiety (Chronic) COPD exacerbation (Resolved) Coronary artery disease (Chronic) Dyslipidemia (Chronic) COPD (chronic obstructive pulmonary disease) (Chronic) Umbilical hernia (Chronic) Alcohol intoxication (Resolved) Chest pain (Resolved) Bedbug bite (Resolved) Bronchitis (Resolved) Chest pain (Resolved) Dyspnea (Resolved) Anxiety attack (Resolved) Chest pain (Resolved) Back strain (Resolved) Lumbar contusion (Resolved) Seizure (Resolved) Urticaria (Resolved) Acute bronchitis (Resolved) Surgical History Status post coronary artery stent placement (Chronic) "LAD" Status post cholecystectomy (Chronic) Family History Other Family history non-contributory Social History Preferred Language: Slovak Beliefs That Will Affect Care: None marital status: Current Living Situation: Spouse Feels Safe at Home: Yes Smoking Status: Never smoker Tobacco Type: cigarettes Cigarettes Per Day: 3 Review of Systems See HPI for pertinent positives & negatives. and A total of 10 systems reviewed and were otherwise negative Physical Exam Vital Signs Vital Signs - 24 hr 12/26/18 21:05 12/26/18 21:29 12/26/18 21:31 Temperature 36.7 C Temperature Source Oral Sepsis Recent Fever Within 48 Hours No Sepsis New/Unexplained Change in Mental Status No Sepsis Action Taken by Nursing No Action Required Pulse Rate 84 80 Pulse Rate from SpO2 Sensor Respiratory Rate 19 15 Respiratory Effort / Characteristics Non-Labored Spontaneous Respiratory Depth Normal Blood Pressure 122/80 91/65 L Blood Pressure Mean 94 73 Pulse Oximetry 98 97 Oxygen Delivery Method Room Air Room Air Room Air 12/26/18 21:33 12/26/18 22:01 12/26/18 22:31 Temperature Temperature Source Sepsis Recent Fever Within 48 Hours Sepsis New/Unexplained Change in Mental Status Sepsis Action Taken by Nursing Pulse Rate 76 73 72 Pulse Rate from SpO2 Sensor 76 73 72 Respiratory Rate 13 15 13 Respiratory Effort / Characteristics Respiratory Depth Blood Pressure 105/65 115/67 108/70 Blood Pressure Mean 78 83 82 Pulse Oximetry 96 96 96 Oxygen Delivery Method Room Air Room Air Room Air 12/26/18 23:01 12/26/18 23:31 Temperature Temperature Source Sepsis Recent Fever Within 48 Hours Sepsis New/Unexplained Change in Mental Status Sepsis Action Taken by Nursing Pulse Rate 71 75 Pulse Rate from SpO2 Sensor 72 75 Respiratory Rate 23 20 Respiratory Effort / Characteristics Respiratory Depth Blood Pressure 110/64 106/61 Blood Pressure Mean 79 76 Pulse Oximetry 95 95 Oxygen Delivery Method Room Air Room Air Constitutional: Vital signs reviewed. Eyes: Pupils are equal round reactive to light. Conjunctiva are noninjected. ENT: Pharynx is clear without erythema or exudate. Mucous membranes are moist. Neck supple without meningeal signs. Respiratory: Clear to auscultation bilaterally. Breath sounds are equal bilatera lly. Cardiovascular: Regular rate and rhythm. No rubs or gallops. GI: Soft, nondistended and nontender. Bowel sounds are present. Musculoskeletal: No peripheral edema. No lower extremity tenderness. Integumentary: No cyanosis. Neurological: The patient is awake and alert. No focal deficits. Psychiatric: Slightly anxious appearing. Course 2119: Past medical records reviewed. The patient was evaluated in room A12B. A complete history and physical exam was performed. 2139: Upon reevaluation, the patient states that his pain has completely resolved. 2216: The patient is agreeable to staying in the hospital. He denies chest pain at this time. 2228: I discussed the case with Dr. Luther Hospitalist who accepts the patient for further evaluation. Consultations Consultation #1: I discussed the case with Dr. Luther Hospitalist who accepts the patient for further evaluation. Time: :29 Administered Medications Discontinued Medications Fentanyl Citrate (Fentanyl Citrate) 50 mcg IV NOW STA Stop: 12/26/18 21:24 Last Admin: 12/26/18 21:33 Dose: 50 mcg Documented by: [id number] Nitroglycerin (Nitro-Bid 2%) 1 inch EXT NOW STA Stop: 12/26/18 21:24 Last Admin: 12/26/18 21:33 Dose: 1 inch Documented by: [id number] Ondansetron HCl (Zofran) 4 mg IV NOW STA Stop: 12/26/18 21:24 Last Admin: 12/26/18 21:33 Dose: 4 mg Documented by: [id number] Medical Decision Making Differential Diagnosis Differential diagnoses include unstable angina, GA, PE, pleurisy, pneumonia, and others were considered. Medical Records Attestation: I reviewed the patient's medical records. (The patient was seen in 2014 by Cardiology. He has a history of premature CAD with anterior lateral GA with a history of a LAD stent in 1999. ) Home Medications Current Medication List: was personally reviewed by me Laboratory Data Attestation: I reviewed the patient's lab results. Result diagrams: 12/26/18 21:04 12/26/18 21:04 Lab Results 12/26/18 12/26/18 12/26/18 Range/Units 21:04 21:04 21:04 WBC 8.21 (4.8-10.8) K/uL RBC 4.76 (4.7-6.1) M/uL Hgb 14.6 (14.0-18.0) g/dL Hct 41.8 L (42-52) % MCV 87.8 (80-100) fL MCH 30.7 (25-34) pg MCHC 34.9 (32-36) g/dL RDW Std Deviation 40.9 (36.4-46.3) fL RDW Coeff of Dana 12.8 (11.5-14.5) % Plt Count 135 (130-400) K/uL MPV 12.3 H (7.4-10.4) fL Immature Gran % (Auto) 0.4 % Neut % (Auto) 55.2 % Lymph % (Auto) 31.9 % [place] % (Auto) 6.3 % Eos % (Auto) 5.8 % Baso % (Auto) 0.4 % Immature Gran # (Auto) 0.03 H (0.00-0.02) K/uL Neut # (Auto) 4.53 (1.4-6.5) K/uL Lymph # (Auto) 2.62 (1.2-3.4) K/uL [place] # (Auto) 0.52 (0.11-0.59) K/uL Eos # (Auto) 0.48 (0-0.5) K/uL Baso # (Auto) 0.03 (0-0.2) K/uL APTT 24.0 (21.0-31.0) Seconds PTT Ratio 0.9 POC D-Dimer (0-450) ng/mlFEU Sodium 138 (136-145) mmol/L Potassium 3.9 (3.5-5.1) mmol/L Chloride 103 (98-107) mmol/L Carbon Dioxide 27 (21-32) mmol/L Anion Gap 8.0 (3-11) BUN 12 (7-18) mg/dl Creatinine 0.78 (0.6-1.4) mg/dl Est Cr Clr Drug Dosing 104.5 ml/min Est GFR ( Amer) 116.1 Est GFR (Non-Af Amer) 100.2 BUN/Creatinine Ratio 14.8 (10-20) Glucose 125 H (70-99) mg/dl Calcium 9.5 (8.5-10.1) mg/dl Magnesium 2.0 (1.8-2.4) mg/dl Total Bilirubin 0.4 (0.2-1) mg/dl AST 40 H (15-37) U/L ALT 90 H (12-78) U/L Alkaline Phosphatase 155 H (45-117) U/L POC Troponin I (0-0.045) ng/ml Total Protein 7.8 (6.4-8.2) gm/dl Albumin 4.0 (3.4-5.0) gm/dl Globulin 3.8 (2.5-4.0) gm/dl Albumin/Globulin Ratio 1.1 (0.9-2) Lipase 85 (73-393) U/L 12/26/18 Range/Units 21:25 WBC (4.8-10.8) K/uL RBC (4.7-6.1) M/uL Hgb (14.0-18.0) g/dL Hct (42-52) % MCV (80-100) fL MCH (25-34) pg MCHC (32-36) g/dL RDW Std Deviation (36.4-46.3) fL RDW Coeff of Dana (11.5-14.5) % Plt Count (130-400) K/uL MPV (7.4-10.4) fL Immature Gran % (Auto) % Neut % (Auto) % Lymph % (Auto) % [place] % (Auto) % Eos % (Auto) % Baso % (Auto) % Immature Gran # (Auto) (0.00-0.02) K/uL Neut # (Auto) (1.4-6.5) K/uL Lymph # (Auto) (1.2-3.4) K/uL [place] # (Auto) (0.11-0.59) K/uL Eos # (Auto) (0-0.5) K/uL Baso # (Auto) (0-0.2) K/uL APTT (21.0-31.0) Seconds PTT Ratio POC D-Dimer 169 (0-450) ng/mlFEU Sodium (136-145) mmol/L Potassium (3.5-5.1) mmol/L Chloride (98-107) mmol/L Carbon Dioxide (21-32) mmol/L Anion Gap (3-11) BUN (7-18) mg/dl Creatinine (0.6-1.4) mg/dl Est Cr Clr Drug Dosing ml/min Est GFR ( Amer) Est GFR (Non-Af Amer) BUN/Creatinine Ratio (10-20) Glucose (70-99) mg/dl Calcium (8.5-10.1) mg/dl Magnesium (1.8-2.4) mg/dl Total Bilirubin (0.2-1) mg/dl AST (15-37) U/L ALT (12-78) U/L Alkaline Phosphatase (45-117) U/L POC Troponin I < 0.03 (0-0.045) ng/ml Total Protein (6.4-8.2) gm/dl Albumin (3.4-5.0) gm/dl Globulin (2.5-4.0) gm/dl Albumin/Globulin Ratio (0.9-2) Lipase (73-393) U/L Imaging Data Radiologist's Impression: Radiology results as stated below per my review and the radiologist's interpretation: XR chest 1V portable CLINICAL HISTORY: Chest Pain COMPARISON STUDY: Chest radiograph July 10, 2018. FINDINGS: Lung volumes are diminished. Lungs are clear. There is no pneumothorax or pleural effusion. Cardiac size is normal. Mediastinal contours are normal. There is no evidence for pulmonary edema. IMPRESSION: Low lung volumes. No acute cardiopulmonary findings. Electronically signed by: Thiago Kirby M.D. 12/26/2018 9:38 PM ECG Data Attestation: I personally reviewed and interpreted this ECG as follows: Indication: chest pain Rate (beats per minute): 85 Rhythm: normal sinus Findings: no PVC and no ST elevation Blood Pressure Blood Pressure Findings: Normal blood pressure MDM Narrative I did evaluate the patient as noted above. Patient is presenting with chest pain, shortness of breath and diaphoresis. The patient has a prior history of GA with a stent in the LAD. He did have some relief with nitroglycerin prior to arrival but still complains of 5 out of 10 chest pain. The patient was placed on a continuous cardiac cath lab radiology technologist. I did treat the patient with nitroglycerin paste 1 inch to the anterior chest wall. He was also given fentanyl and Zofran IV. I did order and personally review the patient's 12-lead EKG as described above. His twelve-lead EKG does not show any evidence of acute ischemia. I did order and personally reviewed the images of the patient's chest x-ray as described above. His chest x-ray is unremarkable. I did order and review the patient's blood work as noted in the electronic medical record. Troponin and d- dimer are both negative. CBC is unremarkable. Electrolytes are unremarkable. I did reassess the patient. I did discuss the test results with the patient. He is completely asymptomatic at this time without any chest discomfort or shortness of breath. I did recommend hospitalization for repeat cardiac enzymes and further evaluation. I did discuss the case with the hospitalist and geriatric case manager. Impression & Plan Precordial chest pain Discharge Plan Visit Data Chief Complaint: Chest Pain ED Provider: Ector Villa Discharge Problem: Precordial chest pain Patient Disposition: Being Evaluated by Hospitalist Forms Stand Alone Forms: Call Back Authorization, My [facility] Prescriptions Prescriptions: No Action meloxicam 15 mg tablet 15 mg PO DAILY RF: 0 atorvastatin 40 mg tablet 40 mg PO DAILY RF: 0 atenolol 25 mg tablet 25 mg PO DAILY RF: 0 doxepin 100 mg capsule 100 mg PO HS RF: 0 gabapentin 300 mg capsule 300 mg PO BID RF: 0 aspirin 325 mg Tablet 162 mg PO BID RF: 0 multivitamin Tablet 1 tab PO DAILY RF: 0 vitamin B complex Tablet 1 tab PO DAILY RF: 0 cholecalciferol (vitamin D3) [Vitamin D3] 1,000 unit Capsule 1,000 unit PO DAILY RF: 0 fluticasone propionate 50 mcg/actuation spray,suspension 2 spray Intranasal DAILY RF: 0 lisinopril 2.5 mg tablet 2.5 mg PO DAILY RF: 0 Vyvanse 70 mg capsule 70 mg PO DAILY RF: 0 mirtazapine 30 mg tablet 60 mg PO HS RF: 0 nitroglycerin 0.4 mg tablet, sublingual 0.4 mg Sublingual UD PRN (Reason: Chest Pain) RF: 0 tramadol 50 mg tablet 50 mg PO Q6 PRN (Reason: Pain) RF: 0 omeprazole 20 mg capsule,delayed release(DR/EC) 20 mg PO BID RF: 0 gabapentin 300 mg capsule 600 mg PO HS RF: 0 Referrals Referrals: Mao Jones MD [Primary Care Provider] - The scribe's documentation has been prepared under my direction and personally reviewed by me in its entirety. I confirm that the note above accurately reflects all work, treatment, procedures, and medical decision making performed by me.
[2018-12-27] MEDS ORDERED: SODIUM CHLORIDE 0.9% 500 ML IV ONE (00:13)
[2018-12-27] MEDS ORDERED: LORazepam 0.25 MG/0.5 ML VIAL IV STA (00:13)
[2018-12-27] MEDS ORDERED: OXYCODONE HCL IR 5 MG TAB (IMMEDIATE RELEASE) PO STA (00:13)
--- NOTE | 2018-12-27 00:15 | History & Physical Report ---
Date of Service December 27, 2018 Assessment & Plan (1) Precordial chest pain: hx premature CAD status post LAD stent ([facility] [place], [place]) Rule out ACS hypertension, BP on the lower side hyperlipidemia on statin Rx COPD as per records, poor status at baseline past tobacco/alcohol abuse as per records anxiety/mood disorder, patient markedly anxious during encounter Abnormal LFTs possible fatty liver Hyperglycemia possible prediabetes, hemoglobin A1c of 6 from 2018 OBS PCU Continue aspirin, beta-tatyana, statin meds Follow troponin TTE, Cardiology consult RE chest pain Anxiolytic as needed Follow LFTs, liver ultrasound if with progression Check hemoglobin A1c DVT prophylaxis. Lovenox subcu Full code History of Present Illness Chief Complaint: Chest pain Primary Care Provider: Mao Jones MD History obtained from patient and records. Medical history significant for premature CAD status post LAD stent ([facility] [place], 1999), hypertension, hyperlipidemia, COPD as per records, past tobacco/alcohol abuse as per records, anxiety/mood disorder, Asperger's syndrome as per patient. Recent confinement January 2015 for chest pain. ACS ruled out with normal exercise stress echo. Patient was doing some woodwork at home yesterday when he experience burning, stabbing, pricking chest pain going into his lungs, with shortness of breath, diaphoreses. No relief with nitro tab taken at home. Subsequent relief with nitro spray and aspirin administered by EMS. Chest pain unlike anything he has had before. Medical History as above Surgical History : Cholecystectomy, Family History : Heart disease, diabetes, IBD Personal/Social history : Past tobacco/alcohol abuse as per records, disabled Allergies Allergy/AdvReac Type Severity Reaction Status Date / Time Iodinated Contrast- Oral and Allergy Intermediate nausea , Verified 12/26/18 22:02 IV Dye vomiting and vertigo chlorpromazine Allergy Unknown UNKNOWN Verified 12/26/18 22:02 haloperidol Allergy Unknown Unknown Verified 12/26/18 22:02 Home Medications Home Medications Medication Instructions Recorded Confirmed Type aspirin 162 mg PO BID 07/10/18 12/26/18 History atenolol 25 mg PO DAILY 07/10/18 12/26/18 History atorvastatin 40 mg PO DAILY 07/10/18 12/26/18 History cholecalciferol (vitamin D3) 1,000 unit PO DAILY 07/10/18 12/26/18 History [Vitamin D3] doxepin 100 mg PO HS 07/10/18 12/26/18 History fluticasone propionate 2 spray INTRANASAL DAILY 07/10/18 12/26/18 History gabapentin 300 mg PO BID 07/10/18 12/26/18 History lisdexamfetamine [Vyvanse] 70 mg PO DAILY 07/10/18 12/26/18 History lisinopril 2.5 mg PO DAILY 07/10/18 12/26/18 History mirtazapine 60 mg PO HS 07/10/18 12/26/18 History multivitamin 1 tab PO DAILY 07/10/18 12/26/18 History nitroglycerin 0.4 mg SUBLINGUAL UD PRN 07/10/18 12/26/18 History omeprazole 20 mg PO BID 07/10/18 12/26/18 History tramadol 50 mg PO Q6 PRN 07/10/18 12/26/18 History vitamin B complex 1 tab PO DAILY 07/10/18 12/26/18 History meloxicam 15 mg tablet 15 mg PO DAILY 09/15/18 12/26/18 History gabapentin 300 mg capsule 600 mg PO HS 12/15/18 12/26/18 History Past Med/Surg History Medical History ADHD (Chronic) Asperger syndrome (Chronic) Schizoaffective disorder (Chronic) Anxiety (Chronic) COPD exacerbation (Resolved) Coronary artery disease (Chronic) Dyslipidemia (Chronic) COPD (chronic obstructive pulmonary disease) (Chronic) Umbilical hernia (Chronic) Alcohol intoxication (Resolved) Chest pain (Resolved) Bedbug bite (Resolved) Bronchitis (Resolved) Chest pain (Resolved) Dyspnea (Resolved) Anxiety attack (Resolved) Chest pain (Resolved) Back strain (Resolved) Lumbar contusion (Resolved) Seizure (Resolved) Urticaria (Resolved) Acute bronchitis (Resolved) Surgical History Status post coronary artery stent placement (Chronic) "LAD" Status post cholecystectomy (Chronic) Family History Other Family history non-contributory Social History Preferred Language: Egyptian Communication Ability: Effective Renal Technician Required: No Beliefs That Will Affect Care: None marital status: Current Living Situation: Significant Other Other Information That Helps Us Care for You: No Feels Safe at Home: Yes Safety Concerns: Feels Safe At This Time Smoking Status: Never smoker Tobacco Type: cigarettes Cigarettes Per Day: 3 Do You Dip or Chew Tobacco: No Second Hand Exposure: No Tobacco Cessation Education Requested by Patient: No Hx Alcohol Use: No Hx Substance Use: No Review of Systems Review of Systems: As per HPI, all 10 systems reviewed, all other ROS negative Physical Exam Physical Exam: GENERAL: Anxious, no respiratory distress SKIN: Normal color, warm HEENT: Bespectacled, [place] palpebral conjunctivae, no ptosis, dry buccal mucosa NECK : Supple, short neck, no tenderness CHEST : CTA, no tenderness HEART : RRR, no obvious murmurs ABDOMEN: Some distention, nontender EXTREMITIES : No LE swelling/tenderness, no other conspicuous deformities noted NEUROLOGIC : Coherent, no facial asymmetry, no other gross focality Results & Data Vital Signs (Past 12 Hours) Vital Signs Temp Pulse Resp BP Pulse Ox 12/27/18 00:01 77 22 96/72 L 98 12/26/18 23:31 75 20 106/61 95 12/26/18 23:01 71 23 110/64 95 12/26/18 22:31 72 13 108/70 96 12/26/18 22:01 73 15 115/67 96 12/26/18 21:33 76 13 105/65 96 12/26/18 21:31 80 15 91/65 L 97 12/26/18 21:05 36.7 C 84 19 122/80 98 Laboratory Results Chest x-ray showed Low lung volumes. No acute cardiopulmonary findings. EKG as per my interpretation : Rate 85, NSR, incomplete right bundle branch block, no ischemia Diagnostic Findings Laboratory Results WBC 8.21 K/uL (4.8-10.8) 12/26/18 21:04 RBC 4.76 M/uL (4.7-6.1) 12/26/18 21:04 Hgb 14.6 g/dL (14.0-18.0) 12/26/18 21:04 Hct 41.8 % (42-52) L 12/26/18 21:04 MCV 87.8 fL (80-100) 12/26/18 21:04 MCH 30.7 pg (25-34) 12/26/18 21:04 MCHC 34.9 g/dL (32-36) 12/26/18 21:04 RDW Std Deviation 40.9 fL (36.4-46.3) 12/26/18 21:04 RDW Coeff of Dana 12.8 % (11.5-14.5) 12/26/18 21:04 Plt Count 135 K/uL (130-400) 12/26/18 21:04 MPV 12.3 fL (7.4-10.4) H 12/26/18 21:04 Immature Gran % (Auto) 0.4 % 12/26/18 21:04 Neut % (Auto) 55.2 % 12/26/18 21:04 Lymph % (Auto) 31.9 % 12/26/18 21:04 [place] % (Auto) 6.3 % 12/26/18 21:04 Eos % (Auto) 5.8 % 12/26/18 21:04 Baso % (Auto) 0.4 % 12/26/18 21:04 Immature Gran # (Auto) 0.03 K/uL (0.00-0.02) H 12/26/18 21:04 Neut # (Auto) 4.53 K/uL (1.4-6.5) 12/26/18 21:04 Lymph # (Auto) 2.62 K/uL (1.2-3.4) 12/26/18 21:04 [place] # (Auto) 0.52 K/uL (0.11-0.59) 12/26/18 21:04 Eos # (Auto) 0.48 K/uL (0-0.5) 12/26/18 21:04 Baso # (Auto) 0.03 K/uL (0-0.2) 12/26/18 21:04 APTT 24.0 Seconds (21.0-31.0) 12/26/18 21:04 PTT Ratio 0.9 12/26/18 21:04 POC D-Dimer 169 ng/mlFEU (0-450) 12/26/18 21:25 Sodium 138 mmol/L (136-145) 12/26/18 21:04 Potassium 3.9 mmol/L (3.5-5.1) 12/26/18 21:04 Chloride 103 mmol/L (98-107) 12/26/18 21:04 Carbon Dioxide 27 mmol/L (21-32) 12/26/18 21:04 Anion Gap 8.0 (3-11) 12/26/18 21:04 BUN 12 mg/dl (7-18) 12/26/18 21:04 Creatinine 0.78 mg/dl (0.6-1.4) 12/26/18 21:04 Est Cr Clr Drug Dosing 104.5 ml/min 12/26/18 21:04 Est GFR ( Amer) 116.1 12/26/18 21:04 Est GFR (Non-Af Amer) 100.2 12/26/18 21:04 BUN/Creatinine Ratio 14.8 (10-20) 12/26/18 21:04 Glucose 125 mg/dl (70-99) H 12/26/18 21:04 Calcium 9.5 mg/dl (8.5-10.1) 12/26/18 21:04 Magnesium 2.0 mg/dl (1.8-2.4) 12/26/18 21:04 Total Bilirubin 0.4 mg/dl (0.2-1) 12/26/18 21:04 AST 40 U/L (15-37) H 12/26/18 21:04 ALT 90 U/L (12-78) H 12/26/18 21:04 Alkaline Phosphatase 155 U/L (45-117) H 12/26/18 21:04 POC Troponin I < 0.03 ng/ml (0-0.045) 12/26/18 21:25 Troponin I < 0.015 ng/ml (0-0.045) 12/26/18 23:37 Total Protein 7.8 gm/dl (6.4-8.2) 12/26/18 21:04 Albumin 4.0 gm/dl (3.4-5.0) 12/26/18 21:04 Globulin 3.8 gm/dl (2.5-4.0) 12/26/18 21:04 Albumin/Globulin Ratio 1.1 (0.9-2) 12/26/18 21:04 Lipase 85 U/L (73-393) 12/26/18 21:04
[2018-12-27] MEDS ORDERED: LACTATED RINGER'S 1,000 ML IV ONE (01:21)
[2018-12-27] MEDS ORDERED: ACETAMINOPHEN 325 MG TAB PO PRN ×2 (01:21→05:40)
[2018-12-27] MEDS ORDERED: TRAMADOL HCL 50 MG TABLET PO PRN (01:21)
[2018-12-27] MEDS ORDERED: MoRPHine SULFATE 2 MG/ML CARP IV PRN (01:21)
[2018-12-27] MEDS ORDERED: METOCLOPRAMIDE HCL INJ 5 MG/ML 2 ML VIAL IV PRN (01:21)
[2018-12-27] MEDS ORDERED: LORazepam 0.25 MG/0.5 ML VIAL IV PRN (01:21)
[2018-12-27] MEDS: DOXEPIN HCL 50 MG CAPSULE PO SCH ×2 (02:24→19:54)
[2018-12-27] MEDS: MIRTAZAPINE TAB 15 MG TAB PO SCH ×2 (02:24→19:53)
[2018-12-27] MEDS: GABAPENTIN 600 MG TAB PO SCH ×2 (02:25→19:53)
[2018-12-27 06:16] LABS: Prothrombin Time 10.2 Seconds (9.0-12.0)
[2018-12-27 06:17] LABS: Partial Thromboplastin Ratio 0.9; Partial Thromboplastin Time 24.2 Seconds (21.0-31.0)
[2018-12-27 06:32] LABS: Alanine Aminotransferase 64 U/L (12-78); Albumin Level 3.4 gm/dl (3.4-5.0); Aspartate Aminotransferase 29 U/L (15-37); BUN Creatinine Ratio 13.7 (10-20); Basophils # (auto) 0.03 K/uL (0-0.2); Basophils % (auto) 0.4 %; Blood Urea Nitrogen 9 mg/dl (7-18); Calcium 8.4 mg/dl (8.5-10.1); Carbon Dioxide 29 mmol/L (21-32); Chloride 104 mmol/L (98-107); Creatinine Clr Calc Pharmacy 127.3 ml/min; Eosinophils # (auto) 0.43 K/uL (0-0.5); Eosinophils % (auto) 6.1 %; Est GFR (Non-African American) 108.7; Glucose 121 mg/dl (70-99); Hematocrit (blood only) 38.5 % (42-52); Hemoglobin 13.5 g/dL (14.0-18.0); Immature Granulocytes # (auto) 0.02 K/uL (0.00-0.02); Immature Granulocytes % (auto) 0.3 %; Lymphocytes # (auto) 2.51 K/uL (1.2-3.4); Lymphocytes % (auto) 35.8 %; Mean Corpuscular Hgb Conc 35.1 g/dL (32-36); Mean Corpuscular Volume 89.5 fL (80-100); Mean Platelet Volume 12.1 fL (7.4-10.4); Monocytes # (auto) 0.49 K/uL (0.11-0.59); Neutrophils # (auto) 3.54 K/uL (1.4-6.5); Neutrophils % (auto) 50.4 %; Platelet Count 114 K/uL (130-400); Platelet Estimate Decreased (Normal); Potassium 3.5 mmol/L (3.5-5.1); RBC Morphology Unremarkable; RDW Standard Deviation 42.4 fL (36.4-46.3); Sodium 137 mmol/L (136-145); White Blood Count 7.02 K/uL (4.8-10.8)
[2018-12-27 06:37] LABS: Albumin Globulin Ratio 1.1 (0.9-2); Alkaline Phosphatase 128 U/L (45-117); Bilirubin,Total 0.6 mg/dl (0.2-1); Chol HDL Ratio 5; Cholesterol 177 mg/dl (0-200); Globulin 3.2 gm/dl (2.5-4.0); HDL Cholesterol 37 mg/dl; LDL Cholesterol Calculated 78 mg/dl; Total Protein 6.6 gm/dl (6.4-8.2); Triglycerides 309 mg/dl (0-150); Troponin I < 0.015 ng/ml (0-0.045); VLDL Cholesterol 62 mg/dl
[2018-12-27] MEDS: ATENOLOL 25 MG TABLET PO SCH (08:12)
[2018-12-27] MEDS: ENOXAPARIN INJ 40 MG/0.4 ML SYR SQ SCH (08:12)
[2018-12-27] MEDS: GABAPENTIN 300 MG CAP PO SCH ×2 (08:12→14:03)
[2018-12-27] MEDS: ATORVASTATIN 40 MG TAB PO SCH (08:12)
[2018-12-27] MEDS: LISINOPRIL 2.5 MG TAB PO SCH (08:12)
[2018-12-27] MEDS: VITAMIN B COMPLEX TAB PO SCH (08:13)
[2018-12-27] MEDS: MULTIVITAMIN TAB PO SCH (08:13)
[2018-12-27] MEDS: ASPIRIN 81 MG ECTAB PO SCH ×2 (08:13→19:53)
[2018-12-27] MEDS: PANTOprazole 40 MG TAB PO SCH ×2 (08:13→19:53)
[2018-12-27] MEDS: FLUTICASONE PROPIONATE NA SPR 16 GM BTL SCH (08:14)
--- NOTE | 2018-12-27 13:29 | Cardiology Consultation ---
Date of Consultation December 27, 2018 Assessment & Plan (1) Precordial chest pain: Initial EKGs echocardiogram and cardiac enzymes negative for ischemia. Symptoms were profound and relieved by sublingual nitroglycerin in the setting of known coronary artery disease We will proceed with diagnostic stress testing. Patient has orthopedic limitations but feels he may be able to walk on treadmill. We will anticipate stress echocardiogram in a.m. if patient unable to proceed adequately we will proceed to dobutamine stress test Patient agreeable to plan We will continue aspirin atenolol and atorvastatin as ordered. Patient report any new symptoms or recurrence of complaints (2) ADHD: (3) Asperger syndrome: (4) Coronary artery disease: (5) Dyslipidemia: Laboratory studies reviewed will address pending results of testing History of Present Illness Reason for Consultation: Acute chest pain Requesting Physician: Dr. Matias Attending Physician: Arias Matias MD History of Present Illness Patient is a 58-year-old male with known coronary artery disease having suffered an acute anterolateral myocardial infarction in June 2000. He was treated initially with thrombolytic therapy following by diagnostic cardiac cath eterization/coronary intervention receiving a stent to the proximal left understanding per records. Underlying medical history is as listed below. Patient presents today noting having recent stable cardiac history no recent complaints of chest pain angina or shortness of breath until admission. Notes having developed severe substernal sharp burning pain radiating to the jaw angle back and shoulders. Symptoms were excruciatingly severe and debilitating. Ultimately resolving with nitroglycerin spray by paramedics patient having tried 2 sublingual nitroglycerin prior to the presentation. Initial enzymes and EKGs do not reflect acute myocardial injury He has had no further recurrence of symptoms since hospitalization. Notes no recent change in exercise capacity. Denies orthopnea PND peripheral edema. Notes no fevers chills unexplained infections. Appetite weighted been stable. He is a non-smoker. Denies headache or visual changes. Notes no bleeding difficulties melena hematochezia dysuria hematuria. Notes activity is limited by chronic back and orthopedic issues but feels he may be able to walk on treadmill Allergies Allergy/AdvReac Type Severity Reaction Status Date / Time Iodinated Contrast- Oral and Allergy Intermediate nausea , Verified 12/26/18 22:02 IV Dye vomiting and vertigo chlorpromazine Allergy Unknown UNKNOWN Verified 12/26/18 22:02 haloperidol Allergy Unknown Unknown Verified 12/26/18 22:02 Home Medications Home Medications Medication Instructions Recorded Confirmed Type aspirin 162 mg PO BID 07/10/18 12/26/18 History atenolol 25 mg PO DAILY 07/10/18 12/26/18 History atorvastatin 40 mg PO DAILY 07/10/18 12/26/18 History cholecalciferol (vitamin D3) 1,000 unit PO DAILY 07/10/18 12/26/18 History [Vitamin D3] doxepin 100 mg PO HS 07/10/18 12/26/18 History fluticasone propionate 2 spray INTRANASAL DAILY 07/10/18 12/26/18 History gabapentin 300 mg PO BID 07/10/18 12/26/18 History lisdexamfetamine [Vyvanse] 70 mg PO DAILY 07/10/18 12/26/18 History lisinopril 2.5 mg PO DAILY 07/10/18 12/26/18 History mirtazapine 60 mg PO HS 07/10/18 12/26/18 History multivitamin 1 tab PO DAILY 07/10/18 12/26/18 History nitroglycerin 0.4 mg SUBLINGUAL UD PRN 07/10/18 12/26/18 History omeprazole 20 mg PO BID 07/10/18 12/26/18 History tramadol 50 mg PO Q6 PRN 07/10/18 12/26/18 History vitamin B complex 1 tab PO DAILY 07/10/18 12/26/18 History meloxicam 15 mg tablet 15 mg PO DAILY 09/15/18 12/26/18 History gabapentin 300 mg capsule 600 mg PO HS 12/15/18 12/26/18 History Patient History Medical History ADHD (Chronic) Asperger syndrome (Chronic) Schizoaffective disorder (Chronic) Anxiety (Chronic) COPD exacerbation (Resolved) Coronary artery disease (Chronic) Dyslipidemia (Chronic) COPD (chronic obstructive pulmonary disease) (Chronic) Umbilical hernia (Chronic) Alcohol intoxication (Resolved) Chest pain (Resolved) Bedbug bite (Resolved) Bronchitis (Resolved) Chest pain (Resolved) Dyspnea (Resolved) Anxiety attack (Resolved) Chest pain (Resolved) Back strain (Resolved) Lumbar contusion (Resolved) Seizure (Resolved) Urticaria (Resolved) Acute bronchitis (Resolved) Surgical History Status post coronary artery stent placement (Chronic) "LAD" Status post cholecystectomy (Chronic) Family History Other Family history non-contributory Social History Preferred Language: Lithuanian Communication Ability: Effective Nascar Racer Required: No Beliefs That Will Affect Care: None marital status: Current Living Situation: Significant Other Other Information That Helps Us Care for You: No Feels Safe at Home: Yes Safety Concerns: Feels Safe At This Time Smoking Status: Never smoker Tobacco Type: cigarettes Cigarettes Per Day: 3 Do You Dip or Chew Tobacco: No Second Hand Exposure: No Tobacco Cessation Education Requested by Patient: No Hx Alcohol Use: No Hx Substance Use: No Review of Systems Review of Systems: All systems reviewed & are unremarkable except as noted in HPI & below Physical Exam Constitutional: WD/WN, vitals as above no acute distress Eyes: PERRL, conjunctivae normal, anicteric sclerae ENMT: external ear and nose normal, oropharynx normal Neck: trachea midline, no thyromegaly Respiratory: normal respiratory effort, lungs clear to auscultation Cardiovascular: Rate/Rhythm: regular rate and regular rhythm Heart Sounds: normal S1 and normal S2; no gallop, no murmur and no cardiac rub Vessels: no JVD Gastrointestinal (Abdomen): normal bowel sounds, soft, nontender, no hepatosplenomegaly Musculoskeletal: no cyanosis or clubbing, extremities motor strength 5/5 Skin: no rashes, warm and dry Results & Data Vital Signs (Past 12 Hours) Vital Signs Temp Pulse Pulse Resp BP Pulse Ox 12/27/18 11:58 36.8 C 67 16 130/77 98 12/27/18 08:00 71 12/27/18 07:20 36.4 C L 66 16 122/80 98 12/27/18 03:45 36.4 C L 74 18 119/76 97 12/27/18 02:55 69 12/27/18 02:19 36.4 C L 73 18 108/72 90 Laboratory Results Laboratory Results - last 24 hr 12/26/18 12/26/18 12/26/18 21:04 21:04 21:04 WBC 8.21 RBC 4.76 Hgb 14.6 Hct 41.8 L MCV 87.8 MCH 30.7 MCHC 34.9 RDW Std Deviation 40.9 RDW Coeff of Dana 12.8 Plt Count 135 MPV 12.3 H Immature Gran % (Auto) 0.4 Neut % (Auto) 55.2 Lymph % (Auto) 31.9 [place] % (Auto) 6.3 Eos % (Auto) 5.8 Baso % (Auto) 0.4 Immature Gran # (Auto) 0.03 H Neut # (Auto) 4.53 Lymph # (Auto) 2.62 Gove # (Auto) 0.52 Eos # (Auto) 0.48 Baso # (Auto) 0.03 Platelet Estimate RBC Morphology PT INR APTT 24.0 PTT Ratio 0.9 POC D-Dimer Sodium 138 Potassium 3.9 Chloride 103 Carbon Dioxide 27 Anion Gap 8.0 BUN 12 Creatinine 0.78 Est Cr Clr Drug Dosing 104.5 Est GFR ( Amer) 116.1 Est GFR (Non-Af Amer) 100.2 BUN/Creatinine Ratio 14.8 Glucose 125 H Estimat Average Glucose Hemoglobin A1c Calcium 9.5 Magnesium 2.0 Total Bilirubin 0.4 AST 40 H ALT 90 H Alkaline Phosphatase 155 H POC Troponin I Troponin I Total Protein 7.8 Albumin 4.0 Globulin 3.8 Albumin/Globulin Ratio 1.1 Triglycerides Cholesterol LDL Cholesterol, Calc VLDL Cholesterol, Calc HDL Cholesterol Cholesterol/HDL Ratio Lipase 85 12/26/18 12/26/18 12/26/18 21:04 21:25 23:37 WBC RBC Hgb Hct MCV MCH MCHC RDW Std Deviation RDW Coeff of Dana Plt Count MPV Immature Gran % (Auto) Neut % (Auto) Lymph % (Auto) [place] % (Auto) Eos % (Auto) Baso % (Auto) Immature Gran # (Auto) Neut # (Auto) Lymph # (Auto) [place] # (Auto) Eos # (Auto) Baso # (Auto) Platelet Estimate RBC Morphology PT INR APTT PTT Ratio POC D-Dimer 169 Sodium Potassium Chloride Carbon Dioxide Anion Gap BUN Creatinine Est Cr Clr Drug Dosing Est GFR ( Amer) Est GFR (Non-Af Amer) BUN/Creatinine Ratio Glucose Estimat Average Glucose Pending Hemoglobin A1c Pending Calcium Magnesium Total Bilirubin AST ALT Alkaline Phosphatase POC Troponin I < 0.03 Troponin I < 0.015 Total Protein Albumin Globulin Albumin/Globulin Ratio Triglycerides Cholesterol LDL Cholesterol, Calc VLDL Cholesterol, Calc HDL Cholesterol Cholesterol/HDL Ratio Lipase 12/27/18 12/27/18 12/27/18 05:26 05:26 05:26 WBC 7.02 RBC 4.30 L Hgb 13.5 L Hct 38.5 L MCV 89.5 MCH 31.4 MCHC 35.1 RDW Std Deviation 42.4 RDW Coeff of Dana 13.0 Plt Count 114 L MPV 12.1 H Immature Gran % (Auto) 0.3 Neut % (Auto) 50.4 Lymph % (Auto) 35.8 Gove % (Auto) 7.0 Eos % (Auto) 6.1 Baso % (Auto) 0.4 Immature Gran # (Auto) 0.02 Neut # (Auto) 3.54 Lymph # (Auto) 2.51 Gove # (Auto) 0.49 Eos # (Auto) 0.43 Baso # (Auto) 0.03 Platelet Estimate Decreased L RBC Morphology Unremarkable PT INR APTT 24.2 PTT Ratio 0.9 POC D-Dimer Sodium 137 Potassium 3.5 Chloride 104 Carbon Dioxide 29 Anion Gap 4.0 BUN 9 Creatinine 0.64 Est Cr Clr Drug Dosing 127.3 Est GFR ( Amer) 126.0 Est GFR (Non-Af Amer) 108.7 BUN/Creatinine Ratio 13.7 Glucose 121 H Estimat Average Glucose Hemoglobin A1c Calcium 8.4 L Magnesium Total Bilirubin 0.6 AST 29 ALT 64 Alkaline Phosphatase 128 H POC Troponin I Troponin I < 0.015 Total Protein 6.6 Albumin 3.4 Globulin 3.2 Albumin/Globulin Ratio 1.1 Triglycerides 309 H Cholesterol 177 LDL Cholesterol, Calc 78 VLDL Cholesterol, Calc 62 HDL Cholesterol 37 Cholesterol/HDL Ratio 5 Lipase 12/27/18 05:26 WBC RBC Hgb Hct MCV MCH MCHC RDW Std Deviation RDW Coeff of Dana Plt Count MPV Immature Gran % (Auto) Neut % (Auto) Lymph % (Auto) [place]ove % (Auto) Eos % (Auto) Baso % (Auto) Immature Gran # (Auto) Neut # (Auto) Lymph # (Auto) Gove # (Auto) Eos # (Auto) Baso # (Auto) Platelet Estimate RBC Morphology PT 10.2 INR 1.0 APTT PTT Ratio POC D-Dimer Sodium Potassium Chloride Carbon Dioxide Anion Gap BUN Creatinine Est Cr Clr Drug Dosing Est GFR ( Amer) Est GFR (Non-Af Amer) BUN/Creatinine Ratio Glucose Estimat Average Glucose Hemoglobin A1c Calcium Magnesium Total Bilirubin AST ALT Alkaline Phosphatase POC Troponin I Troponin I Total Protein Albumin Globulin Albumin/Globulin Ratio Triglycerides Cholesterol LDL Cholesterol, Calc VLDL Cholesterol, Calc HDL Cholesterol Cholesterol/HDL Ratio Lipase ECG Additional Comments: 26-DEC-2018 21:07:39 [facility]-EDSTAT ROUTINE RETRIEVAL Normal sinus rhythm Normal ECG When compared with ECG of 10-JUL-2018 01:23, No significant change was found Confirmed by Zeus Atkins ([id number]) on 12/27/2018 11:14:05 AM
--- NOTE | 2018-12-27 18:09 | Hospitalist Progress Note ---
Date of Service December 27, 2018 Assessment & Plan (1) Precordial chest pain: Severe chest pain, relieved by NTG. Known CAD. No acute EKG changes. Serial troponins negative. Seen in consultation by Cardiology. Stress test planned for tomorrow. (2) Coronary artery disease: Chest pain as discussed above. Know CAD, s/p PCI. Continue aspirin, atenolol, statin. (3) Dyslipidemia: LDL-c 78. Continue atorvastatin. (4) Schizoaffective disorder: Continue usual meds. (5) DVT prophylaxis: SQ enoxaparin. Ambulate. (6) Discharge planning issues: Anticipated discharge to home. Family Medicine follow-up with Dr. Jones. Subjective Recheck for chest pain. Patient seen in their room around 1530. Admitted last night with chest pain relieved by nitroglycerin. Feels better today. No chest pain or shortness of breath. Seen earlier today by Cardiology. Stress testing recommended and is planned for tomorrow. Review of Systems: Constitutional- no fever. Cardiac- as noted above. Pulmonary- no cough or SOB. GI- constipated; no nausea, vomiting. - no urinary symptoms. Otherwise, as noted above. Physical Exam Constitutional: no acute distress Respiratory: no respiratory distress Auscultation: lungs clear to auscultation bilaterally Cardiovascular: Rate/Rhythm: regular rate and regular rhythm Heart Sounds: no gallop, no murmur and no cardiac rub Vessels: no JVD Extremities: no calf tenderness and no edema Gastrointestinal (Abdomen): normal bowel sounds, soft, nontender, no hepatosplenomegaly Skin: no rashes, warm and dry Psychiatric: Orientation: alert and oriented x 3 Results & Data Vital Signs (Past 12 Hours) Vital Signs Temp Pulse Pulse Resp BP Pulse Ox 12/27/18 15:30 36.5 C 73 20 120/71 97 12/27/18 14:57 71 12/27/18 11:58 36.8 C 67 16 130/77 98 12/27/18 08:00 71 12/27/18 07:20 36.4 C L 66 16 122/80 98 Laboratory Results Laboratory Results - last 24 hr 12/26/18 12/26/18 12/26/18 21:04 21:04 21:04 WBC 8.21 RBC 4.76 Hgb 14.6 Hct 41.8 L MCV 87.8 MCH 30.7 MCHC 34.9 RDW Std Deviation 40.9 RDW Coeff of Dana 12.8 Plt Count 135 MPV 12.3 H Immature Gran % (Auto) 0.4 Neut % (Auto) 55.2 Lymph % (Auto) 31.9 [place] % (Auto) 6.3 Eos % (Auto) 5.8 Baso % (Auto) 0.4 Immature Gran # (Auto) 0.03 H Neut # (Auto) 4.53 Lymph # (Auto) 2.62 [place] # (Auto) 0.52 Eos # (Auto) 0.48 Baso # (Auto) 0.03 Platelet Estimate RBC Morphology PT INR APTT 24.0 PTT Ratio 0.9 POC D-Dimer Sodium 138 Potassium 3.9 Chloride 103 Carbon Dioxide 27 Anion Gap 8.0 BUN 12 Creatinine 0.78 Est Cr Clr Drug Dosing 104.5 Est GFR ( Amer) 116.1 Est GFR (Non-Af Amer) 100.2 BUN/Creatinine Ratio 14.8 Glucose 125 H Estimat Average Glucose Hemoglobin A1c Calcium 9.5 Magnesium 2.0 Total Bilirubin 0.4 AST 40 H ALT 90 H Alkaline Phosphatase 155 H POC Troponin I Troponin I Total Protein 7.8 Albumin 4.0 Globulin 3.8 Albumin/Globulin Ratio 1.1 Triglycerides Cholesterol LDL Cholesterol, Calc VLDL Cholesterol, Calc HDL Cholesterol Cholesterol/HDL Ratio Lipase 85 12/26/18 12/26/18 12/26/18 21:04 21:25 23:37 WBC RBC Hgb Hct MCV MCH MCHC RDW Std Deviation RDW Coeff of Dana Plt Count MPV Immature Gran % (Auto) Neut % (Auto) Lymph % (Auto) [place] % (Auto) Eos % (Auto) Baso % (Auto) Immature Gran # (Auto) Neut # (Auto) Lymph # (Auto) [place] # (Auto) Eos # (Auto) Baso # (Auto) Platelet Estimate RBC Morphology PT INR APTT PTT Ratio POC D-Dimer 169 Sodium Potassium Chloride Carbon Dioxide Anion Gap BUN Creatinine Est Cr Clr Drug Dosing Est GFR ( Amer) Est GFR (Non-Af Amer) BUN/Creatinine Ratio Glucose Estimat Average Glucose Pending Hemoglobin A1c Pending Calcium Magnesium Total Bilirubin AST ALT Alkaline Phosphatase POC Troponin I < 0.03 Troponin I < 0.015 Total Protein Albumin Globulin Albumin/Globulin Ratio Triglycerides Cholesterol LDL Cholesterol, Calc VLDL Cholesterol, Calc HDL Cholesterol Cholesterol/HDL Ratio Lipase 12/27/18 12/27/18 12/27/18 05:26 05:26 05:26 WBC 7.02 RBC 4.30 L Hgb 13.5 L Hct 38.5 L MCV 89.5 MCH 31.4 MCHC 35.1 RDW Std Deviation 42.4 RDW Coeff of Dana 13.0 Plt Count 114 L MPV 12.1 H Immature Gran % (Auto) 0.3 Neut % (Auto) 50.4 Lymph % (Auto) 35.8 [place] % (Auto) 7.0 Eos % (Auto) 6.1 Baso % (Auto) 0.4 Immature Gran # (Auto) 0.02 Neut # (Auto) 3.54 Lymph # (Auto) 2.51 [place] # (Auto) 0.49 Eos # (Auto) 0.43 Baso # (Auto) 0.03 Platelet Estimate Decreased L RBC Morphology Unremarkable PT INR APTT 24.2 PTT Ratio 0.9 POC D-Dimer Sodium 137 Potassium 3.5 Chloride 104 Carbon Dioxide 29 Anion Gap 4.0 BUN 9 Creatinine 0.64 Est Cr Clr Drug Dosing 127.3 Est GFR ( Amer) 126.0 Est GFR (Non-Af Amer) 108.7 BUN/Creatinine Ratio 13.7 Glucose 121 H Estimat Average Glucose Hemoglobin A1c Calcium 8.4 L Magnesium Total Bilirubin 0.6 AST 29 ALT 64 Alkaline Phosphatase 128 H POC Troponin I Troponin I < 0.015 Total Protein 6.6 Albumin 3.4 Globulin 3.2 Albumin/Globulin Ratio 1.1 Triglycerides 309 H Cholesterol 177 LDL Cholesterol, Calc 78 VLDL Cholesterol, Calc 62 HDL Cholesterol 37 Cholesterol/HDL Ratio 5 Lipase 12/27/18 05:26 WBC RBC Hgb Hct MCV MCH MCHC RDW Std Deviation RDW Coeff of Dana Plt Count MPV Immature Gran % (Auto) Neut % (Auto) Lymph % (Auto) [place] % (Auto) Eos % (Auto) Baso % (Auto) Immature Gran # (Auto) Neut # (Auto) Lymph # (Auto) [place] # (Auto) Eos # (Auto) Baso # (Auto) Platelet Estimate RBC Morphology PT 10.2 INR 1.0 APTT PTT Ratio POC D-Dimer Sodium Potassium Chloride Carbon Dioxide Anion Gap BUN Creatinine Est Cr Clr Drug Dosing Est GFR ( Amer) Est GFR (Non-Af Amer) BUN/Creatinine Ratio Glucose Estimat Average Glucose Hemoglobin A1c Calcium Magnesium Total Bilirubin AST ALT Alkaline Phosphatase POC Troponin I Troponin I Total Protein Albumin Globulin Albumin/Globulin Ratio Triglycerides Cholesterol LDL Cholesterol, Calc VLDL Cholesterol, Calc HDL Cholesterol Cholesterol/HDL Ratio Lipase ECG Additional Comments: EKG performed last evening at 2107 reviewed and demonstrated normal sinus rhythm at 85/minute, no acute ST or T wave abnormalities.
[2018-12-27] MEDS: DOCUSATE SODIUM 100 MG CAP PO SCH (19:11)
[2018-12-28 06:14] LABS: Estimated Average Glucose 120 mg/dl; Hemoglobin A1C 5.8 % (4.5-5.6)
[2018-12-28] MEDS: ATORVASTATIN 40 MG TAB PO SCH (09:08)
[2018-12-28] MEDS: MULTIVITAMIN TAB PO SCH (09:08)
[2018-12-28] MEDS: GABAPENTIN 300 MG CAP PO SCH (09:08)
[2018-12-28] MEDS: ATENOLOL 25 MG TABLET PO SCH (09:08)
[2018-12-28] MEDS: LISINOPRIL 2.5 MG TAB PO SCH (09:08)
[2018-12-28] MEDS: ASPIRIN 81 MG ECTAB PO SCH (09:08)
[2018-12-28] MEDS: FLUTICASONE PROPIONATE NA SPR 16 GM BTL SCH (09:09)
[2018-12-28] MEDS: PANTOprazole 40 MG TAB PO SCH (09:09)
[2018-12-28] MEDS: VITAMIN B COMPLEX TAB PO SCH (09:09)
[2018-12-28] MEDS: DOCUSATE SODIUM 100 MG CAP PO SCH (09:09)
[2018-12-28] MEDS: ENOXAPARIN INJ 40 MG/0.4 ML SYR SQ SCH (09:10)
--- NOTE | 2018-12-28 10:21 | Cardiology Progress Note ---
Date of Service December 28, 2018 Assessment & Plan (1) Precordial chest pain: EKGs cardiac enzymes negative for ischemia. Stress echocardiography today notable for only mild hypertensive blood pressure response. He exercised 8 minutes on a Bentley protocol and graded and 90% age- predicted maximum heart rate without symptoms. There is no evidence of ischemia by EKG or echographic criteria Continue usual antihypertensive and cardiac medications follow-up with Dr. Tyson (2) ADHD: (3) Asperger syndrome: (4) Coronary artery disease: (5) Dyslipidemia: Laboratory studies reviewed urged continued use of atorvastatin Subjective Since and examined both pre-and post stress echocardiography this morning. No chest pains or cardiac symptoms overnight. No arrhythmias. Physical Exam Constitutional: WD/WN, vitals as above no acute distress Eyes: PERRL, conjunctivae normal, anicteric sclerae ENMT: external ear and nose normal, oropharynx normal Neck: trachea midline, no thyromegaly Respiratory: normal respiratory effort, lungs clear to auscultation Cardiovascular: Rate/Rhythm: regular rate and regular rhythm Heart Sounds: normal S1 and normal S2; no gallop, no murmur and no cardiac rub Vessels: no JVD Gastrointestinal (Abdomen): normal bowel sounds, soft, nontender, no hepatosplenomegaly Musculoskeletal: no cyanosis or clubbing, extremities motor strength 5/5 Skin: no rashes, warm and dry Results & Data Vital Signs (Past 12 Hours) Vital Signs Temp Pulse Pulse Resp BP Pulse Ox Pulse Ox 12/28/18 07:42 66 12/28/18 07:04 36.5 C 67 19 118/72 94 12/28/18 04:11 36.7 C 68 18 118/74 98 12/28/18 01:21 96 12/28/18 00:03 36.6 C 67 19 134/76 97 12/27/18 23:52 70
--- NOTE | 2018-12-28 11:43 | Hospitalist Progress Note ---
Date of Service December 28, 2018 Assessment & Plan (1) Precordial chest pain: Severe chest pain, relieved by NTG. Known CAD. No acute EKG changes. Serial troponins negative. Seen in consultation by Cardiology. No stress-induced ischemia per treadmill stress echo. Continue usual cardiac meds. (2) Coronary artery disease: Chest pain as discussed above. Know CAD, s/p PCI. Continue aspirin, atenolol, statin. (3) Dyslipidemia: LDL-c 78. Continue atorvastatin. (4) Schizoaffective disorder: History of schizoaffective disorder and Asperger syndrome. Continue usual meds. Monthly follow-up with Psychiatry. (5) DVT prophylaxis: SQ enoxaparin. Ambulate. (6) Discharge planning issues: Discharge to home. Family Medicine follow-up with Dr. Jones. Subjective Recheck for chest pain. Patient seen in their room around 10:50 Treadmill stress echo went well this morning- no stress-induced ischemia. Review of Systems: Constitutional- no fever. Cardiac- as noted above. Pulmonary- no cough or SOB. GI- constipated; no nausea, vomiting. - no urinary symptoms. Otherwise, as noted above. Physical Exam Constitutional: no acute distress Respiratory: no respiratory distress Auscultation: lungs clear to auscultation bilaterally Cardiovascular: Rate/Rhythm: regular rate and regular rhythm Heart Sounds: no gallop, no murmur and no cardiac rub Vessels: no JVD Extremities: no calf tenderness and no edema Gastrointestinal (Abdomen): normal bowel sounds, soft, nontender, no hepatosplenomegaly Inspection/Auscultation: + abdomen abnormal to inspection (umbilical hernia) Skin: no rashes, warm and dry Psychiatric: Orientation: alert and oriented x 3 Results & Data Vital Signs (Past 12 Hours) Vital Signs Temp Pulse Pulse Resp BP Pulse Ox Pulse Ox 12/28/18 11:41 36.7 C 76 20 121/53 L 97 12/28/18 07:42 66 12/28/18 07:04 36.5 C 67 19 118/72 94 12/28/18 04:11 36.7 C 68 18 118/74 98 12/28/18 01:21 96 12/28/18 00:03 36.6 C 67 19 134/76 97 12/27/18 23:52 70
--- NOTE | 2018-12-28 20:00 | Discharge Summary ---
Date of Service Date of Admission: 12/26/18 Date of Discharge: 12/28/18 Admission HPI Per Admitting Provider History obtained from patient and records. Medical history significant for premature CAD status [place] [place] hypertension, hyperlipidemia, COPD as per records, past tobacco/alcohol abuse as per records, anxiety/mood disorder, Asperger's syndrome as per patient. Recent confinement January 2015 for chest pain. ACS ruled out with normal exercise stress echo. Patient was doing some woodwork at home yesterday when he experience burning, stabbing, pricking chest pain going into his lungs, with shortness of breath, diaphoreses. No relief with nitro tab taken at home. Subsequent relief with nitro spray and aspirin administered by EMS. Chest pain unlike anything he has had before. Admission Exam Per Admitting Provider GENERAL: Anxious, no respiratory distress SKIN: Normal color, warm HEENT: Bespectacled, [place] palpebral conjunctivae, no ptosis, dry buccal mucosa NECK : Supple, short neck, no tenderness CHEST : CTA, no tenderness HEART : RRR, no obvious murmurs ABDOMEN: Some distention, nontender EXTREMITIES : No LE swelling/tenderness, no other conspicuous deformities noted NEUROLOGIC : Coherent, no facial asymmetry, no other gross focality Principal Diagnosis chest pain, noncardiac Discharge Data Allergies Allergy/AdvReac Type Severity Reaction Status Date / Time Iodinated Contrast- Oral and Allergy Intermediate nausea , Verified 12/26/18 22:02 IV Dye vomiting and vertigo chlorpromazine Allergy Unknown UNKNOWN Verified 12/26/18 22:02 haloperidol Allergy Unknown Unknown Verified 12/26/18 22:02 Consultations 12/26/18 22:23 ED Decision to Admit Stat 12/27/18 01:21 Consult Cardiology Routine Hospital Course (1) Precordial chest pain: Presented to ED with severe chest pain, relieved by NTG. Known CAD. No acute EKG changes. Serial troponins negative. Seen in consultation by Cardiology. No stress-induced ischemia per treadmill stress echo. Continue usual cardiac meds. (2) Coronary artery disease: Chest pain evaluation as discussed above with negative treadmill stress echo. Know CAD, s/p PCI. Continue aspirin, atenolol, statin. (3) Dyslipidemia: LDL-c 78. Continue atorvastatin. (4) Schizoaffective disorder: History of schizoaffective disorder and Asperger syndrome. Continue usual meds. Monthly follow-up with Psychiatry. (5) DVT prophylaxis: SQ enoxaparin. Ambulate. (6) Discharge planning issues: Discharged to home. Family Medicine follow-up with Dr. Jones. Total Time Total Time Spent Total Time Spent (In Minutes): 30 Discharge Plan Discharge Items Patient Disposition: Home - Self-Care Reason For Visit: chest pain Discharge Diagnosis: chest pain- no sign of heart attack Condition: Good Discharge Goals: Decrease discomfort and Prevent disease Activity: Resume your previous activity Non-emergency contact: Primary Care Provider, Hospitalist and [employer] Call non-emergency contact if: you have any medication questions and your symptoms worsen Follow-up/Referrals: Mao Jones MD [Primary Care Provider] - (12/31/2018 11:00 AM Edgar Araya MD (covering for Dr. Jones) [facility]) Diet: Heart Healthy Add Provider Instructions: MEDICATION CHANGES: none SUMMARY OF TEST RESULTS: No sign of heart attack. Stress test went well. No sign of severe blockage in coronary arteries. LDL cholesterol was 78. Continue low cholesterol diet and atorvastatin (Lipitor). Fasting blood sugar was a little high (121), but not in the diabetic range. Be careful with your diet, control your weight, and exercise regularly. Dr. Jones will recheck your blood sugars periodically. PENDING STUDIES: none RECOMMENDATIONS FOR FOLLOW-UP: No additional testing recommended at this time. OTHER INSTRUCTIONS: Please do your best to quit smoking. Seek medical attention if you have: * temperature above 101 * chest pain or trouble breathing * abdominal pain, nausea, vomiting * diarrhea, dark stools or bloody stools * any unanswered questions or concerns Call 911 if symptoms are severe. Please take good care of yourself. Call if you have any questions or problems. You can reach a [facility] hospitalist on duty at [facility] 24 hours a day by calling [phone]. Prescriptions: Continued meloxicam 15 mg tablet 15 mg PO DAILY RF: 0 atorvastatin 40 mg tablet 40 mg PO DAILY RF: 0 atenolol 25 mg tablet 25 mg PO DAILY RF: 0 doxepin 100 mg capsule 100 mg PO HS RF: 0 gabapentin 300 mg capsule 300 mg PO BID RF: 0 aspirin 325 mg Tablet 162 mg PO BID RF: 0 multivitamin Tablet 1 tab PO DAILY RF: 0 vitamin B complex Tablet 1 tab PO DAILY RF: 0 cholecalciferol (vitamin D3) [Vitamin D3] 1,000 unit Capsule 1,000 unit PO DAILY RF: 0 fluticasone propionate 50 mcg/actuation spray,suspension 2 spray Intranasal DAILY RF: 0 lisinopril 2.5 mg tablet 2.5 mg PO DAILY RF: 0 lisdexamfetamine 70 mg capsule 70 mg PO DAILY RF: 0 mirtazapine 30 mg tablet 60 mg PO HS RF: 0 nitroglycerin 0.4 mg tablet, sublingual 0.4 mg Sublingual UD PRN (Reason: Chest Pain) RF: 0 tramadol 50 mg tablet 50 mg PO Q6 PRN (Reason: Pain) RF: 0 omeprazole 20 mg capsule,delayed release(DR/EC) 20 mg PO BID RF: 0 gabapentin 300 mg capsule 600 mg PO HS RF: 0 Stand-Alone Forms: Call Back Authorization, [facility]/Other Patient Handouts: Heart Attack Warning Signs Discharge Orders: Discharge Order (Routine); Ordered 12/28/18 Ordered By: Arias Matias Admission Data Admit Date/Time: 12/27/18 00:19 Attending Provider: Arias Matias Admit Provider: Francis Stafford Primary Care Provider: Mao Jones Other Providers: Francis Stafford ; Ector Chakraborty Service: Telemetry Other Interventions: Discharge Summary Assessment (RN) Last Done: 12/28/18 12:16 DC Date/Time DO NOT enter until pt leaves facility: 12/28/18 13:24
== END 2018-12-28 13:24 | disposition home or self-care (01) ==
LOC: ED 21:02 → 2S 21:02

== ENCOUNTER 2023-05-26 14:56 | Inpatient (IN) ==
[2023-05-26] MEDS ORDERED: LORazepam 2 MG/1 ML VIAL ONE (15:01)
--- NOTE | 2023-05-26 15:16 | Emergency Department Note ---
Impression & Plan Acute confusion, Rhabdomyolysis, Seizure-like activity, Acute hypokalemia, Hypocalcemia, Elevated procalcitonin, Non-ST elevation CO (NSTEMI), Cardiac dysrhythmia, Prolonged QT interval, Transaminitis, Hypomagnesemia ED Provider Note HISTORY OF PRESENT ILLNESS: Patient is a 63-year-old male presenting with seizure-like activity. Patient reportedly had a ground-level fall at home and 911 was called. On EMS arrival, the patient had significant hoarding at his house, does take a long time for them to get him out. On their extraction from the home, the patient had a witnessed 15 to 20-second seizure. Reportedly became flexed in the bilateral elbows and started shaking. Seizure stopped on its own after a few seconds. 3 minutes later, he had another similar seizure-like episode that lasted for a few seconds. No previous seizure-like activity. Patient did strike his head when he fell. He is on aspirin daily. He was given 2 mg of IV Versed in route. Family member presents after patient's initial arrival and supplies more history. Reports that she saw the patient in his normal self earlier today and she left the house to run an errand and was gone for about 30 minutes. She reports that she came back and found the patient on the ground. States that patient had an isolated seizure disorder back in 2017 after he had been started on a new medication. She denies the patient taking any new medications in the last few weeks. No chance that the patient would have mistakenly taken too much of his prescribed medication. ROS: as above PHYSICAL EXAM: Constitutional: Patient appears in no acute distress. HENT: Head: Normocephalic and atraumatic. Eyes: EOMI, PERRL Mouth/Throat: Mucous membranes moist. Mouth is bloody without any evidence of tongue laceration. Neck: Trachea midline. Neck supple. Cardiovascular: Tachycardic with regular rhythm. No murmurs, rubs or gallops. Intact distal pulses. Pulmonary/Chest: No respiratory distress. Breath sounds clear and equal bilaterally. No wheezes or rales. No chest wall tenderness to palpation. Abdominal: Abdomen soft, no tenderness, rebound or guarding. Musculoskeletal: No edema, tenderness or deformity noted. Skin: Warm and dry. No rash, erythema, pallor or cyanosis Psychiatric: Appropriate mood and affect for situation. Neurological: Alert but confused. CN II-XII grossly intact, moving all extremities spontaneously. MDM: - Vitals signs showed tachycardia. - History obtained via EMS, given patient's confusion. Patient presents with confusion and seizure-like activity. Patient reportedly was found down on the ground by family. He was extracted from the house and reportedly had seizure- like activity x2. Patient is on aspirin daily. - On arrival to the ER, the patient is significantly confused and grabbing nonsensically wires and staff. He was given 1 mg of IV Ativan and taken to CT scan. - Chronic conditions affecting care: CAD; schizoaffective disorder - Differential diagnoses include, but are not limited to: Intracranial hemorrhage; CVA; seizure; electrolyte abnormality; ACS; pneumonia; dysrhythmia - Order placed for continuous cardiac monitoring. At this time, monitor showed rate of 113 bpm with normal sinus rhythm, per my interpretation. - External medical records reviewed. EMS run sheet was reviewed. Patient was given 2 mg of IV Versed in route. - EKG reviewed by myself showed supraventricular tachycardia. Rate 143 bpm. QTc 543. No acute ischemic changes. - Patient was given 6 mg IV adenosine without any change in HR. Given 12 mg IV adenosine and heart rate slowed down to the low 1 teens. It did appear to be sinus tachycardia. - Laboratory workup interpreted by myself showed leukocytosis (WBC 13.12); hypokalemia (K 2.5); hypocalcemia (Ca 5.7); elevated anion gap (21 - likely from elevated lactate); transaminitis (AST 118; ALT 57); elevated CK (4564); elevated troponin (35.5); elevated procalcitonin (1.05); normal salicylate/tylenol/ethanol levels; hypomagnesemia (Mg 0.5) - CXR negative for pneumonia, per my interpretation - CT head wo contrast negative for acute intracranial pathology. - Blood cultures obtained - Patient given IV cefepime empirically. - Patient given 2L NS. Given 20 mEq IV potassium x2. Given 1g IV calcium for electrolyte replacement. Given 2g IV magnesium for replacement. - Repeat EKG per my interpretation showed normal sinus rhythm. Rate 100 bpm. QTc prolonged at 392. No acute ischemic changes. - Prolonged QT likely secondary to electrolyte abnormalities - On reassessment, patient does appear more alert and is answering questions. However, family at bedside reports he is still not back to his neurological baseline as of 1700. - Discussion was had with career services coordinator about patient's case and need for admission - Hospitalist consulted for admission - Patient admitted to [facility] service for further evaluation and management. I provided 46 minutes of critical care time to this patient's care outside of billable procedures. ASSESSMENT AND PLAN: Diagnosis: Confusion; seizure-like activity; hypokalemia; hypocalcemia; prolonged QT interval; cardiac dysrhythmia; elevated procalcitonin; NSTEMI; transaminitis; rhabdomyolysis; hypomagnesemia Plan: admit Past Med/Surg History Medical History (Updated 05/26/23 @ 17:58 by Scarlett Breaux MD) Electrolyte disturbance Rhabdomyolysis ADHD Asperger syndrome Urticaria Seizure Umbilical hernia COPD (chronic obstructive pulmonary disease) Dyslipidemia Coronary artery disease Anxiety Schizoaffective disorder Surgical History Status post cholecystectomy Status post coronary artery stent placement "LAD" Family History Other Family history non-contributory Social History Smoking Status: Unknown if ever smoked Cigarettes Per Day: 3; Second Hand Exposure: No; Do You Dip or Chew Tobacco: No; Hx Alcohol Use: No Hx Substance Use: No Preferred Language: Colombian Communication Ability: Effective Plain Clothes Police Officer Required: No Beliefs That Will Affect Care: None marital status: Current Living Situation: Significant Other Feels Safe at Home: Yes Assistive Devices: Glasses Allergies Allergies Allergy/AdvReac Type Severity Reaction Status Date / Time hydrocodone Allergy Severe RENAL Verified 05/26/23 17:28 INSUFFICIENCY varenicline [From Chantix] Allergy Severe Seizure Verified 05/26/23 17:28 Iodinated Contrast Media Allergy Intermediate nausea , Verified 05/26/23 17:28 [Iodinated Contrast- Oral vomiting and IV Dye] and vertigo shellfish derived Allergy Intermediate VOMITING/PAIN Verified 05/26/23 17:28 IN STOMACH chlorpromazine Allergy Unknown UNKNOWN Verified 05/26/23 17:28 haloperidol Allergy Unknown Unknown Verified 05/26/23 17:28 oxcarbazepine AdvReac Severe RENAL Verified 05/26/23 17:28 INSUFFICIENCY Home Meds Home Medications Medication Instructions Recorded Confirmed aspirin 325 mg tablet 162 mg PO QAM 07/10/18 05/26/23 atenolol 25 mg tablet 25 mg PO DAILY 07/10/18 05/26/23 atorvastatin 40 mg tablet 40 mg PO DAILY 07/10/18 05/26/23 cholecalciferol (vitamin D3) 25 1,000 unit PO DAILY 07/10/18 05/26/23 mcg (1,000 unit) capsule (Vitamin D3) doxepin 100 mg capsule 100 mg PO HS 07/10/18 05/26/23 fluticasone propionate 50 2 spray intranasal DAILY 07/10/18 05/26/23 mcg/actuation nasal spray,suspension gabapentin 300 mg capsule See Rx Instructions .Route .COMPLEX 07/10/18 05/26/23 lisinopril 2.5 mg tablet 2.5 mg PO DAILY 07/10/18 05/26/23 multivitamin 1 tab PO DAILY 07/10/18 05/26/23 nitroglycerin 0.4 mg sublingual 0.4 mg sublingual UD PRN Chest Pain 07/10/18 05/26/23 tablet omeprazole 20 mg capsule,delayed 20 mg PO DAILY 07/10/18 05/26/23 release tramadol 50 mg tablet 50 mg PO Q6 PRN Pain 07/10/18 05/26/23 vitamin B complex 1 tab PO DAILY 07/10/18 05/26/23 dextroamphetamine-amphetamine ER 20 mg PO DAILY 08/19/19 05/26/23 20 mg 24hr capsule,extend release dextroamphetamine-amphetamine 20 20 mg PO DAILY 09/07/21 05/26/23 mg tablet mirtazapine 15 mg tablet 30 mg PO HS 09/07/21 05/26/23 mirtazapine 45 mg tablet 45 mg PO HS 09/07/21 05/26/23 sildenafil 100 mg tablet 100 mg PO DIRECTED PRN Erectile 09/07/21 05/26/23 Dysfunction Results & Data (ED) Vital Signs Vital Signs - 24 hr 05/26/23 15:15 05/26/23 15:16 05/26/23 15:16 Temperature Temperature Source Pulse Rate 145 H 144 H 145 H Pulse Rate from SpO2 Sensor 146 H 144 H Respiratory Rate 24 20 Blood Pressure Blood Pressure Mean Pulse Oximetry 96 95 Oxygen Delivery Method Sepsis Recent Fever Within 48 Hours Sepsis New/Unexplained Change in Mental Status Sepsis Action Taken by Nursing 05/26/23 15:18 05/26/23 15:23 05/26/23 15:23 Temperature 36.8 C Temperature Source Skin Pulse Rate 140 H 139 H Pulse Rate from SpO2 Sensor 143 H Respiratory Rate 20 22 Blood Pressure 129/91 129/91 Blood Pressure Mean 103 103 Pulse Oximetry 94 95 Oxygen Delivery Method Room Air Sepsis Recent Fever Within 48 Hours No Sepsis New/Unexplained Change in Mental Status No Sepsis Action Taken by Nursing No Action Required 05/26/23 15:34 05/26/23 15:55 05/26/23 16:00 Temperature Temperature Source Pulse Rate 138 H 134 H 139 H Pulse Rate from SpO2 Sensor 138 H 128 H 140 H Respiratory Rate 20 36 H 36 H Blood Pressure 124/82 132/89 169/97 H Blood Pressure Mean 96 103 121 Pulse Oximetry 91 92 96 Oxygen Delivery Method Sepsis Recent Fever Within 48 Hours Sepsis New/Unexplained Change in Mental Status Sepsis Action Taken by Nursing 05/26/23 16:31 05/26/23 17:00 05/26/23 17:30 Temperature Temperature Source Pulse Rate 135 H 115 H 108 H Pulse Rate from SpO2 Sensor 120 H 118 H 110 H Respiratory Rate 31 H 33 H 35 H Blood Pressure 122/95 118/92 147/110 H Blood Pressure Mean 104 100 122 Pulse Oximetry 92 92 Oxygen Delivery Method Sepsis Recent Fever Within 48 Hours Sepsis New/Unexplained Change in Mental Status Sepsis Action Taken by Nursing 05/26/23 17:52 Temperature Temperature Source Pulse Rate 108 H Pulse Rate from SpO2 Sensor Respiratory Rate 35 H Blood Pressure 147/110 H Blood Pressure Mean Pulse Oximetry 92 Oxygen Delivery Method Room Air Sepsis Recent Fever Within 48 Hours Sepsis New/Unexplained Change in Mental Status Sepsis Action Taken by Nursing Laboratory Data 05/26/23 15:15 05/26/23 15:15 Lab Results 05/26/23 05/26/23 05/26/23 Range/Units 15:04 15:15 15:43 WBC 13.12 H (4.8-10.8) K/ul RBC 4.48 L (4.70-6.10) M/uL Hgb 13.3 L (14.0-18.0) g/dl Hct 37.0 L (42.0-52.0) % MCV 82.6 (80.0-100.0) fL MCH 29.7 (25.0-34.0) pg MCHC 35.9 (32.0-36.0) g/dL RDW Std Deviation 37.0 (36.4-46.3) fL RDW Coeff of Dana 12.1 (11.5-14.5) % Plt Count 189 (130-400) K/uL MPV 11.5 (9.4-12.4) fL Immature Gran % (Auto) 0.8 % Neut % (Auto) 87.2 % Lymph % (Auto) 5.8 % [place] % (Auto) 5.8 % Eos % (Auto) 0.2 % Baso % (Auto) 0.2 % Neut # (Auto) 11.44 H (1.40-6.50) K/uL Lymph # (Auto) 0.76 L (1.20-3.40) K/uL [place] # (Auto) 0.76 H (0.11-0.59) K/uL Eos # (Auto) 0.02 (0.00-0.50) K/uL Baso # (Auto) 0.03 (0.00-0.20) K/uL Immature Gran # (Auto) 0.11 (0.01-0.20) K/uL VBG pH 7.48 H (7.36-7.41) VBG pCO2 41 (38-50) mmHg VBG pO2 < 20 mmHg VBG HCO3 31 mmol/L VBG O2 Saturation < 60.0 % VBG Base Excess 6.4 mEq/L Sodium 140 (136-145) mmol/L Potassium 2.5 L* (3.5-5.1) mmol/L Chloride 94 L (98-107) mmol/L Carbon Dioxide 25 (21-32) mmol/L Anion Gap 21 H (3-11) BUN 19 (6-23) mg/dl Creatinine 1.10 (0.6-1.4) mg/dl Est Cr Clr Drug Dosing 73.5 ml/min Est GFR ( Amer) 82.9 ml/min Est GFR (Non-Af Amer) 71.6 ml/min BUN/Creatinine Ratio 17.3 (10-20) Glucose 174 H (70-99(Fasting)) mg/dl POC Glucose 188 H (70-99) mg/dl Lactate 4.4 H* (0.4-2.0) mmol/L Calcium 5.7 L* (8.6-10.3) mg/dl Magnesium 0.5 L* (1.7-2.4) mg/dl Total Bilirubin 1.7 H (0.2-1.0) mg/dl AST 118 H (13-39) U/L ALT 57 H (7-52) U/L Alkaline Phosphatase 99 (34-104) U/L Total Creatine Kinase 4564 H (30-223) U/L Troponin I High Sens 35.5 H (0-20) pg/ml Total Protein 6.9 (6.0-8.3) gm/dl Albumin 3.6 (3.4-5.0) gm/dl Globulin 3.3 (2.5-4.0) gm/dl Albumin/Globulin Ratio 1.1 (0.9-2) Procalcitonin 1.05 H (0-0.5) ng/ml Urine Color Urine Appearance (Clear) Urine pH (4.5-7.5) Ur Specific Otis (1.000-1.030) Urine Protein (Negative) Urine Glucose (UA) (Negative) Urine Ketones (Negative) Urine Blood (Negative) Urine Nitrite (Negative) Urine Bilirubin (Negative) Urine Urobilinogen (Negative) Ur Leukocyte Esterase (Negative) Urine WBC (Auto) (0-5) /hpf Urine RBC (Auto) (0-4) /hpf U Hyaline Cast (Auto) (0-5) /lpf U Epithel Cells (Auto) (0-5) /lpf Urine Bacteria (Auto) (Negative) Ur Renal Epithelial Cell Urine Mucus (None Prsent) Salicylates < 3.0 L (3.0-30) mg/dl Acetaminophen < 3 L (10-30) ug/ml Ethyl Alcohol mg/dL < 10.0 (<10.0) mg/dl 05/26/23 Range/Units 17:00 WBC (4.8-10.8) K/ul RBC (4.70-6.10) M/uL Hgb (14.0-18.0) g/dl Hct (42.0-52.0) % MCV (80.0-100.0) fL MCH (25.0-34.0) pg MCHC (32.0-36.0) g/dL RDW Std Deviation (36.4-46.3) fL RDW Coeff of Dana (11.5-14.5) % Plt Count (130-400) K/uL MPV (9.4-12.4) fL Immature Gran % (Auto) % Neut % (Auto) % Lymph % (Auto) % [place] % (Auto) % Eos % (Auto) % Baso % (Auto) % Neut # (Auto) (1.40-6.50) K/uL Lymph # (Auto) (1.20-3.40) K/uL [place] # (Auto) (0.11-0.59) K/uL Eos # (Auto) (0.00-0.50) K/uL Baso # (Auto) (0.00-0.20) K/uL Immature Gran # (Auto) (0.01-0.20) K/uL VBG pH (7.36-7.41) VBG pCO2 (38-50) mmHg VBG pO2 mmHg VBG HCO3 mmol/L VBG O2 Saturation % VBG Base Excess mEq/L Sodium (136-145) mmol/L Potassium (3.5-5.1) mmol/L Chloride (98-107) mmol/L Carbon Dioxide (21-32) mmol/L Anion Gap (3-11) BUN (6-23) mg/dl Creatinine (0.6-1.4) mg/dl Est Cr Clr Drug Dosing ml/min Est GFR ( Amer) ml/min Est GFR (Non-Af Amer) ml/min BUN/Creatinine Ratio (10-20) Glucose (70-99(Fasting)) mg/dl POC Glucose (70-99) mg/dl Lactate (0.4-2.0) mmol/L Calcium (8.6-10.3) mg/dl Magnesium (1.7-2.4) mg/dl Total Bilirubin (0.2-1.0) mg/dl AST (13-39) U/L ALT (7-52) U/L Alkaline Phosphatase (34-104) U/L Total Creatine Kinase (30-223) U/L Troponin I High Sens (0-20) pg/ml Total Protein (6.0-8.3) gm/dl Albumin (3.4-5.0) gm/dl Globulin (2.5-4.0) gm/dl Albumin/Globulin Ratio (0.9-2) Procalcitonin (0-0.5) ng/ml Urine Color Dark Yellow Urine Appearance Cloudy A (Clear) Urine pH 6.0 (4.5-7.5) Ur Specific Otis 1.023 (1.000-1.030) Urine Protein 2+ H (Negative) Urine Glucose (UA) 1+ H (Negative) Urine Ketones 1+ H (Negative) Urine Blood 3+ H (Negative) Urine Nitrite Positive A (Negative) Urine Bilirubin 1+ H (Negative) Urine Urobilinogen Negative (Negative) Ur Leukocyte Esterase Trace H (Negative) Urine WBC (Auto) 10-30 H (0-5) /hpf Urine RBC (Auto) 0-4 (0-4) /hpf U Hyaline Cast (Auto) 1-5 (0-5) /lpf U Epithel Cells (Auto) >30 H (0-5) /lpf Urine Bacteria (Auto) Negative (Negative) Ur Renal Epithelial Cell Not Reportable Urine Mucus Present A (None Prsent) Salicylates (3.0-30) mg/dl Acetaminophen (10-30) ug/ml Ethyl Alcohol mg/dL (<10.0) mg/dl Administered Medications Potassium Chloride (K José / Wtr) 10 meq in 100 mls @ 100 mls/hr IV Q1H JOSE Stop: 05/26/23 18:29 Last Admin: 05/26/23 16:58 Dose: 100 mls/hr Documented By: MIC Discontinued Medications Adenosine (Adenosine Iv Soln 3 Mg/Ml 2 Ml Vial) Confirm Administered Dose 6 mg IV .STK-MED ONE Stop: 05/26/23 15:45 Last Admin: 05/26/23 15:52 Dose: 6 mg Documented By: MIC Adenosine (Adenosine Iv Soln 3 Mg/Ml 2 Ml Vial) Confirm Administered Dose 12 mg IV .STK-MED ONE Stop: 05/26/23 15:54 Last Admin: 05/26/23 15:58 Dose: 12 mg Documented By: MIC Adenosine (Adenosine Iv Soln 3 Mg/Ml 2 Ml Vial) 12 mg IV ONE ONE Stop: 05/26/23 16:16 Last Admin: 05/26/23 16:11 Dose: Not Given Documented By: MIC Sodium Chloride (Nss) 1,000 mls @ 999 mls/hr IV .Q1H1M ONE Stop: 05/26/23 17:01 Last Infusion: 05/26/23 16:58 Dose: Infused Documented By: Admin: 05/26/23 16:03 Dose: 999 mls/hr Documented By: MIC Calcium Gluconate () 1,000 mg in 60 mls @ 240 mls/hr IV NOW STA Stop: 05/26/23 16:35 Last Infusion: 05/26/23 17:21 Dose: Infused Documented By: Admin: 05/26/23 16:58 Dose: 240 mls/hr Documented By: MIC Cefepime HCl (Maxipime) 2,000 mg in 20 mls @ 5 mls/min IV NOW STA; Protocol Stop: 05/26/23 17:16 Last Admin: 05/26/23 17:16 Dose: 5 mls/min Documented By: MIC Lorazepam (Lorazepam 2 Mg/1 Ml Vial) Confirm Administered Dose 2 mg .ROUTE .STK- MED ONE Stop: 05/26/23 15:02 Last Admin: 05/26/23 16:10 Dose: Not Given Documented By: MIC Lorazepam (Lorazepam 2 Mg/1 Ml Vial) 1 mg IV ONE ONE Stop: 05/26/23 15:46 Last Admin: 05/26/23 15:05 Dose: 1 mg Documented By: MIC Imaging Data Radiologist's Impression: Head CT 05/26/23 15:02 CT head/brain wo con CLINICAL HISTORY: Fall on thinners Technique: Contiguous axial CT images of the head were acquired from the base of the skull to the vertex without intravenous contrast administration. Images were viewed in brain, subdural and bone windows. Automated dose lowering techniques and/or adjustment according to patient size were utilized for this exam. Comparison: Comparison is made to CT head 01/15/2022 Findings: Areas of decreased attenuation are present in the periventricular and subcortical white matter bilaterally consistent with small vessel ischemic disease. Generalized cerebral atrophy with commensurate enlargement of the ventricles, sulci, and cisterns is also present. There is no acute intracranial hemorrhage or evidence of acute territorial infarction. No shift of the midline structures, mass effect, or extra-axial abnormalities are shown. Atherosclerotic calcifications are present in the intracranial segments of the internal carotid arteries. Right maxillary mucous retention cyst is seen. The orbits appear normal. There are no acute fractures of the calvaria or scalp swelling. Impression: No acute intracranial hemorrhage, no evidence of acute territorial infarction or other acute intracranial disease process. ACT 112: Negative or not required by law. Electronically signed by: Rich Quarles M.D. 05/26/2023 3:28 PM Chest X-Ray 05/26/23 15:12 SINGLE VIEW CHEST CLINICAL HISTORY: Seizure-like activity. FINDINGS: An AP, portable, upright chest radiograph is compared to study dated 02/16/2022. The cardiomediastinal silhouette is unremarkable noting atherosclerotic calcification of the thoracic aorta. Foci of linear atelectasis are seen in both lungs. The lungs and pleural spaces are otherwise clear. No pneumothorax is seen. The bony thorax is grossly intact. IMPRESSION: No active disease in the chest. ACT 112: Negative or not required by law. Electronically signed by: Rivera Soto M.D. 05/26/2023 3:37 PM Discharge Plan Visit Data Chief Complaint: Fall Stated Complaint: FALL, BACK PAIN, HEAD PAIN, 2 SEIZURES ED Provider: Scarlett Breaux Discharge Problem: Acute confusion, Rhabdomyolysis, Seizure-like activity, Acute hypokalemia, Hypocalcemia, Elevated procalcitonin, Non-ST elevation CO (NSTEMI), Cardiac dysrhythmia, Prolonged QT interval, Transaminitis, Hypomagnesemia Patient Disposition: Admitted As Inpatient Discharge Instructions Interventions: ED Discharge Assessment Last Done: 05/26/23 17:52 Forms Stand Alone Forms: My [facility] Prescriptions Prescriptions: No Action atorvastatin 40 mg tablet 40 mg PO DAILY Rx Instructions: takes with biggest meal of the day atenolol 25 mg tablet 25 mg PO DAILY doxepin 100 mg capsule 100 mg PO HS gabapentin 300 mg capsule See Rx Instructions .ROUTE .COMPLEX Rx Instructions: 300 mg orally; TAKES 300 MG BID, THEN 600 MG AT HS. aspirin 325 mg Tablet 162 mg PO QAM Patient Comments: USUALLY TAKES 1 DOSE A DAY multivitamin Tablet 1 tab PO DAILY vitamin B complex Tablet 1 tab PO DAILY cholecalciferol (vitamin D3) [Vitamin D3] 1,000 unit Capsule 1,000 unit PO DAILY fluticasone propionate 50 mcg/actuation spray,suspension 2 spray Intranasal DAILY lisinopril 2.5 mg tablet 2.5 mg PO DAILY nitroglycerin 0.4 mg tablet, sublingual 0.4 mg Sublingual UD PRN (Reason: Chest Pain) tramadol 50 mg tablet 50 mg PO Q6 PRN (Reason: Pain) omeprazole 20 mg capsule,delayed release(DR/EC) 20 mg PO DAILY dextroamphetamine-amphetamine 20 mg capsule,extended release 24hr 20 mg PO DAILY sildenafil 100 mg tablet 100 mg PO DIRECTED PRN (Reason: Erectile Dysfunction) dextroamphetamine-amphetamine 20 mg tablet 20 mg PO DAILY mirtazapine 45 mg tablet 45 mg PO HS mirtazapine 15 mg tablet 30 mg PO HS Referrals Referrals: Mao Jones MD [Primary Care Provider] -
--- NOTE | 2023-05-26 15:30 | CT Scan Report ---
CT head/brain wo con CLINICAL HISTORY: Fall on thinners Technique: Contiguous axial CT images of the head were acquired from the base of the skull to the bakari julia without intravenous contrast administration. Images were viewed in brain, subdural and [facility]. Automated dose lowering techniques and/or adjustment according to patient size were utilized for this exam. Comparison: Comparison is made to CT head 01/15/2022 Findings: Areas of decreased attenuation are present in the periventricular and subcortical white matter bilate rally consistent with small vessel ischemic disease. Generalized cerebral atrophy with commensurate e nlargement of the ventricles, sulci, and cisterns is also present. There is no acute intracranial hem orrhage or evidence of acute territorial infarction. No shift of the midline structures, mass effect, or extra-axial abnormalities are shown. Atherosclerotic calcifications are present in the intracran ial segments of the internal carotid arteries. Right maxillary mucous retention cyst is seen. The orbits appear normal. There are no acute fractures of the calvaria or scalp swelling. Impression: No acute intracranial hemorrhage, no evidence of acute territorial infarction or other acute intracra nial disease process. ACT 112: Negative or not required by law. Electronically signed by: Rich Quarles M.D. 05/26/2023 3:28 PM
[2023-05-26 15:32] LABS: Basophils # (auto) 0.03 K/uL (0.00-0.20); Basophils % (auto) 0.2 %; Eosinophils # (auto) 0.02 K/uL (0.00-0.50); Eosinophils % (auto) 0.2 %; Hemoglobin 13.3 g/dl (14.0-18.0); Immature Granulocytes # (auto) 0.11 K/uL (0.01-0.20); Immature Granulocytes % (auto) 0.8 %; Lymphocytes # (auto) 0.76 K/uL (1.20-3.40); Lymphocytes % (auto) 5.8 %; Mean Corpuscular Hemoglobin 29.7 pg (25.0-34.0); Mean Corpuscular Hgb Conc 35.9 g/dL (32.0-36.0); Mean Corpuscular Volume 82.6 fL (80.0-100.0); Mean Platelet Volume 11.5 fL (9.4-12.4); Monocytes # (auto) 0.76 K/uL (0.11-0.59); Monocytes % (auto) 5.8 %; Neutrophils # (auto) 11.44 K/uL (1.40-6.50); Neutrophils % (auto) 87.2 %; Platelet Count 189 K/uL (130-400); RDW Coefficient of Variation 12.1 % (11.5-14.5); Red Blood Count 4.48 M/uL (4.70-6.10); White Blood Count 13.12 K/ul (4.8-10.8)
--- NOTE | 2023-05-26 15:39 | XRay Report ---
SINGLE VIEW CHEST CLINICAL HISTORY: Seizure-like activity. FINDINGS: An AP, portable, upright chest radiograph is compared to study dated 02/16/2022. The cardiom ediastinal silhouette is unremarkable noting atherosclerotic calcification of the thoracic aorta. Foc i of linear atelectasis are seen in both lungs. The lungs and pleural spaces are otherwise clear. No pneumothorax is seen. The bony thorax is grossly intact. IMPRESSION: No active disease in the chest. ACT 112: Negative or not required by law. Electronically signed by: Rivera Soto M.D. 05/26/2023 3:37 PM
[2023-05-26] MEDS ORDERED: ADENOSINE IV SOLN 3 MG/ML 2 ML VIAL IV ONE ×4 (15:44→16:15)
[2023-05-26] MEDS ORDERED: LORazepam 2 MG/1 ML VIAL IV ONE (15:45)
[2023-05-26 16:00] LABS: Base Excess VBG 6.4 mEq/L; HCO3 VBG 31 mmol/L; Oxygen Saturation VBG < 60.0 %; PCO2 VBG 41 mmHg (38-50); PO2 VBG < 20 mmHg; pH VBG 7.48 (7.36-7.41)
[2023-05-26] MEDS ORDERED: SODIUM CHLORIDE 0.9% 1,000 ML IV ONE (16:01)
[2023-05-26] MEDS ORDERED: CALCIUM GLUCONATE 1,000 MG/60 ML BAG IV STA (16:21)
[2023-05-26 16:22] LABS: Albumin Globulin Ratio 1.1 (0.9-2); Albumin Level 3.6 gm/dl (3.4-5.0); BUN Creatinine Ratio 17.3 (10-20); Bilirubin,Total 1.7 mg/dl (0.2-1.0); Calcium 5.7 mg/dl (8.6-10.3); Creatinine Clr Calc Pharmacy 73.5 ml/min; Est GFR (African American) 82.9 ml/min; Est GFR (Non-African American) 71.6 ml/min; Globulin 3.3 gm/dl (2.5-4.0); Potassium 2.5 mmol/L (3.5-5.1); Total Protein 6.9 gm/dl (6.0-8.3); Troponin I High Sensitivity 35.5 pg/ml (0-20)
[2023-05-26 16:36] LABS: Acetaminophen < 3 ug/ml (10-30); Salicylate < 3.0 mg/dl (3.0-30)
[2023-05-26] MEDS: POTASSIUM CHLORIDE / WTR 10 MEQ/100 ML PLCT IV SCH ×2 (16:58→18:03)
[2023-05-26] MEDS ORDERED: CEFEPIME 2,000 MG/20 ML VIAL IV STA (17:13)
[2023-05-26] MEDS ORDERED: MAGNESIUM HYDROXIDE SUSP 30 ML UDC PO PRN (17:14)
[2023-05-26] MEDS ORDERED: POLYETHYLENE (MIRALAX) 17 GM PACK PO PRN (17:14)
[2023-05-26] MEDS ORDERED: SODIUM CHLORIDE 0.9% 2,000 ML IV ONE (17:16)
[2023-05-26 17:30] LABS: Appearance Urine Cloudy (Clear); Bacteria Urine Automated Negative (Negative); Blood Urine 3+ (Negative); Color Urine Dark Yellow; Epithelial Cell Urine Auto >30 /lpf (0-5); Glucose Urine UA 1+ (Negative); Ketones Urine 1+ (Negative); Leukocyte Esterase Urine Trace (Negative); Nitrite Urine Positive (Negative); Protein Urine 2+ (Negative); RBC Urine Automated 0-4 /hpf (0-4); Specific Gravity Urine 1.023 (1.000-1.030); Urobilinogen Urine Negative (Negative)
[2023-05-26 17:37] LABS: Bilirubin Urine 1+ (Negative)
--- NOTE | 2023-05-26 17:40 | History & Physical Report ---
Date of Service May 26, 2023 Assessment & Plan (1) Seizure: (2) Coronary artery disease: (3) Anxiety: (4) Schizoaffective disorder: (5) COPD (chronic obstructive pulmonary disease): (6) Rhabdomyolysis: (7) Electrolyte disturbance: Plan Mr. Noyola is a 63-year-old male that presented to the ED via EMS after he was found down after a ground-level fall at home. Patient significant other returned home after patient was well all day and was found down. When EMS arrived patient was found to have a 15 to 20-second seizure that occurred twice with similar time. Patient has known isolated seizure in 2017. No new medications and no issues with medication compliance noted by family. CXR negative, head CT negative for ICH and SDH. No midline shift noted. In the ED patient went into SVT and received adenosine 6 mg followed by 12 mg. Underlying sinus tachycardia; ECG shows QTc 543. As of 1699 patient has not returned back to baseline. Patient did receive Ativan 1 mg in the ED for agitation postictally. Patient with leukocytosis 13.12 and lactate elevated 4.4; suspect overall these are likely reactive secondary to seizure. Patient with hypokalemia 2.5, hypocalcemia 5.7; replacement of both initiated in ED. CK level elevated at 4564. Procalcitonin 1.0; empiric treatment started with cefepime which can be supported with elevated lactate. Initial troponin 35.5; will trend but suspect this is likely due to ischemic demand and recent seizure. Additional past medical history includes known seizure history, CAD, ADHD, COPD, and HLD. Suspect patient had a seizure now with rhabdomyolysis including electrolyte abnormalities. We will closely monitor BMP and CK levels. Obtain EEG with neurology consultation and load with Keppra. Seizure: Acute uncontrolled 2 witnessed seizures lasting 15 to 20 seconds; noted flexion in bilateral elbows History of two isolated seizure 2017 after starting Chantix; no new medication or issues with med compliance Received Ativan 1 mg in ED for postictal combative behavior Head CT negative Procalcitonin 1.0; empirically treated with cefepime which was started in ED; continue for now Keppra load initiated; hold on maintenance after discussing with Neuro as likely provoked. Obtain EEG Keep NPO for now Neurology consultation placed Electrolyte disturbance: Acute uncontrolled Likely secondary to rhabdomyolysis Serum potassium 2.5; replacement initiated in ED with two K+ riders; Will add NS with 40 mEq KCL at 125 mL/hour; will check BMP @ 2100 Serum calcium 5.7; replacement initiated in ED with 1G; added additional 1G to NSS; will recheck BMP @ 2100 Serum Mg+ 0.5; Received 1 G Mg+; added additional 4 G Mg+ in NSS; recheck at 2100 Rhabdomyolysis: Acute uncontrolled CK level 4564; will trend in a.m. UA pending COVID-19: Acute uncontrolled asymptomatic incidental finding on biofire Could have contributed to seizure SVT: Acute uncontrolled Patient went into SVT in the ED; received adenosine 6 mg followed by 12 mg; currently sinus tachycardia mid teens ECG QtC 543; avoid QT Prolonging medications at this time Initial troponin 35.5; will trend x1; suspect ischemic demand rather than ACS ECG in AM/PRN CAD: HTN: Chronic stable Takes atenolol, aspirin 162 mg, and lisinopril; continue Anxiety: Schizoaffective disorder: Takes dextro-amphetamine; hold for now Disposition: PCP: Dr. Jones CODE STATUS: Full code VTE prophylaxis: Teds and SCDs for now I spent a total of 87 minutes coordinating, documenting, and providing care for this patient excluding time spent in the performance of separately billed services. All of the aforementioned completed while collaborating with the assigned attending physician for a full treatment plan. Please see their addendum for further details. History of Present Illness Chief Complaint: seizures, rhabdomyolysis, hypokalemia, hypocalcemia Primary Care Provider: Mao Jones MD Mr. Noyola is a 63-year-old male that presented to the ED via EMS after he was found down after a ground-level fall at home. Patient significant other returned home after patient was well all day and was found down. When EMS arrived patient was found to have a 15 to 20-second seizure that occurred twice with similar time. Patient has known isolated seizure in 2017. No new medications and no issues with medication compliance noted by family. CXR negative, head CT negative for ICH and SDH. No midline shift noted. In the ED patient went into SVT and received adenosine 6 mg followed by 12 mg. Underlying sinus tachycardia; ECG shows QTc 543. As of 1700 patient has not returned back to baseline. Patient did receive Ativan 1 mg in the ED for agitation postictally. Patient with leukocytosis 13.12 and lactate elevated 4.4; suspect overall these are likely reactive secondary to seizure. Patient with hypokalemia 2.5, hypocalcemia 5.7; replacement of both initiated in ED. CK level elevated at 4564. Procalcitonin 1.0; empiric treatment started with cefepime which can be supported with elevated lactate. Initial troponin 35.5; will trend but suspect this is likely due to ischemic demand and recent seizure. Additional past medical history includes known seizure history, CAD, ADHD, COPD, and HLD. Suspect patient had a seizure now with rhabdomyolysis including electrolyte abnormalities. We will closely monitor BMP and CK levels. Obtain EEG with neurology consultation. Patient will be admitted for further evaluation and management. Please see A/P for further details. Allergies Allergy/AdvReac Type Severity Reaction Status Date / Time hydrocodone Allergy Severe RENAL Verified 05/26/23 17:28 INSUFFICIENCY varenicline [From Chantix] Allergy Severe Seizure Verified 05/26/23 17:28 Iodinated Contrast Media Allergy Intermediate nausea , Verified 05/26/23 17:28 [Iodinated Contrast- Oral vomiting and IV Dye] and vertigo shellfish derived Allergy Intermediate VOMITING/PAIN Verified 05/26/23 17:28 IN STOMACH chlorpromazine Allergy Unknown UNKNOWN Verified 05/26/23 17:28 haloperidol Allergy Unknown Unknown Verified 05/26/23 17:28 oxcarbazepine AdvReac Severe RENAL Verified 05/26/23 17:28 INSUFFICIENCY Home Medications Medication Instructions Recorded Confirmed Type aspirin 325 mg tablet 162 mg PO QAM 07/10/18 05/26/23 History atenolol 25 mg tablet 25 mg PO DAILY 07/10/18 05/26/23 History atorvastatin 40 mg tablet 40 mg PO DAILY 07/10/18 05/26/23 History cholecalciferol (vitamin D3) 25 1,000 unit PO DAILY 07/10/18 05/26/23 History mcg (1,000 unit) capsule (Vitamin D3) doxepin 100 mg capsule 100 mg PO HS 07/10/18 05/26/23 History fluticasone propionate 50 2 spray intranasal DAILY 07/10/18 05/26/23 History mcg/actuation nasal spray,suspension gabapentin 300 mg capsule See Rx Instructions .Route .COMPLEX 07/10/18 05/26/23 History lisinopril 2.5 mg tablet 2.5 mg PO DAILY 07/10/18 05/26/23 History multivitamin 1 tab PO DAILY 07/10/18 05/26/23 History nitroglycerin 0.4 mg sublingual 0.4 mg sublingual UD PRN Chest Pain 07/10/18 05/26/23 History tablet omeprazole 20 mg capsule,delayed 20 mg PO DAILY 07/10/18 05/26/23 History release tramadol 50 mg tablet 50 mg PO Q6 PRN Pain 07/10/18 05/26/23 History vitamin B complex 1 tab PO DAILY 07/10/18 05/26/23 History mirtazapine 15 mg tablet 30 mg PO HS 09/07/21 05/26/23 History sildenafil 100 mg tablet 100 mg PO DIRECTED PRN Erectile 09/07/21 05/26/23 History Dysfunction Past Med/Surg History Medical History (Updated 05/26/23 @ 17:58 by Scarlett Breaux MD) Electrolyte disturbance Rhabdomyolysis ADHD Asperger syndrome Urticaria Seizure Umbilical hernia COPD (chronic obstructive pulmonary disease) Dyslipidemia Coronary artery disease Anxiety Schizoaffective disorder Surgical History Status post cholecystectomy Status post coronary artery stent placement "LAD" Family History Other Family history non-contributory Social History Smoking Status: Former smoker Tobacco Type: Cigarettes Cigarettes Per Day: 3; Smoking End Date: 2 YEARS AGO; Second Hand Exposure: No; Do You Dip or Chew Tobacco: No; Tobacco Cessation Education Requested by Patient: No Hx Alcohol Use: No Hx Substance Use: No Preferred Language: [place] Communication Ability: Effective Timber Cruiser Required: No Beliefs That Will Affect Care: None marital status: Current Living Situation: Alone Other Information That Helps Us Care for You: No Feels Safe at Home: Yes Safety Concerns: Feels Safe At This Time Assistive Devices: None Review of Systems Review of Systems: Neuro: (-) Falls, trauma, slurred speech (+) post ictal HEENT: (-) RESTREPO, dizziness, dysphagia, visual or auditory changes CV: (-) CP, palpitations, swelling Resp: (-) SOB GI: (-) appetite changes, N/V/D, bowel changes : (-) urinary changes Skin: (-) rashes Psych: (-) anxiety, depression Physical Exam Physical Exam: Neuro: AAOx4, PERRLA, no aphagia, memory changes, CNII-XII grossly intact (+) tremulous with stutter HEENT: head normocephalic, moist mucus membranes CV: S1/S2, (-) M/G/R, (-) edema, cap refill < 3 seconds Resp: Lungs CTA in all babcock. On RA GI: Abdomen S/NT/ND, Ax4 bowel sounds, (-) CVA tenderness Musculoskeletal: 5/5 B/L UE strength, 5/5 B/L LE strength. No gait disturbance Skin: (-) rashes , (-) erythema. lip with dark dried blood. Lip was bit during seizure. Psych: euthymic mood Results & Data Results & Data Vital Signs (Past 12 Hours) Vital Signs Temp Pulse Resp BP Pulse Ox O2 Del Method 05/26/23 15:23 129/91 05/26/23 15:23 139 H 22 95 05/26/23 15:18 36.8 C 140 H 20 129/91 94 Room Air 05/26/23 15:16 145 H 05/26/23 15:16 144 H 20 95 05/26/23 15:15 145 H 24 96 Laboratory Results Short CBC 05/26/23 Range/Units 15:15 WBC 13.12 H (4.8-10.8) K/ul Hgb 13.3 L (14.0-18.0) g/dl Hct 37.0 L (42.0-52.0) % Plt Count 189 (130-400) K/uL BMP 05/26/23 15:15 Sodium 140 Potassium 2.5 L* Chloride 94 L Carbon Dioxide 25 BUN 19 Creatinine 1.10 Glucose 174 H Calcium 5.7 L* Cardiac Enzymes 05/26/23 Range/Units 15:15 Total Creatine Kinase 4564 H (30-223) U/L Liver Function 05/26/23 Range/Units 15:15 Total Bilirubin 1.7 H (0.2-1.0) mg/dl AST 118 H (13-39) U/L ALT 57 H (7-52) U/L Alkaline Phosphatase 99 (34-104) U/L Albumin 3.6 (3.4-5.0) gm/dl Diagnostic Findings Head CT 05/26/23 15:02 CT head/brain wo con CLINICAL HISTORY: Fall on thinners Technique: Contiguous axial CT images of the head were acquired from the base of the skull to the vertex without intravenous contrast administration. Images were viewed in brain, subdural and bone windows. Automated dose lowering techniques and/or adjustment according to patient size were utilized for this exam. Comparison: Comparison is made to CT head 01/15/2022 Findings: Areas of decreased attenuation are present in the periventricular and subcortical white matter bilaterally consistent with small vessel ischemic disease. Generalized cerebral atrophy with commensurate enlargement of the ventricles, sulci, and cisterns is also present. There is no acute intracranial hemorrhage or evidence of acute territorial infarction. No shift of the midline structures, mass effect, or extra-axial abnormalities are shown. Atherosclerotic calcifications are present in the intracranial segments of the internal carotid arteries. Right maxillary mucous retention cyst is seen. The orbits appear normal. There are no acute fractures of the calvaria or scalp swelling. Impression: No acute intracranial hemorrhage, no evidence of acute territorial infarction or other acute intracranial disease process. ACT 112: Negative or not required by law. Electronically signed by: Rich Quarles M.D. 05/26/2023 3:28 PM Chest X-Ray 05/26/23 15:12 SINGLE VIEW CHEST CLINICAL HISTORY: Seizure-like activity. FINDINGS: An AP, portable, upright chest radiograph is compared to study dated 02/16/2022. The cardiomediastinal silhouette is unremarkable noting atherosclerotic calcification of the thoracic aorta. Foci of linear atelectasis are seen in both lungs. The lungs and pleural spaces are otherwise clear. No pneumothorax is seen. The bony thorax is grossly intact. IMPRESSION: No active disease in the chest. ACT 112: Negative or not required by law. Electronically signed by: Rivera Soto M.D. 05/26/2023 3:37 PM Code Status & VTE Plan Code Status Full code in the event of cardiac or respiratory arrest VTE Prophylaxis Plan VTE Prophylaxis will be ordered: Yes Supervising Physician Co-Signing Physician Notes I have seen and examined the patient and have discussed the case with the provider above. I agree with the assessment and plan as stated with the following exceptions. 63-year-old man with a distant history of seizure presents tonight with a provoked seizure. EMS was called after a fall at home. They witnessed a 15 to 20-second seizure where he became flexed in the bilateral elbows and started shaking. Seizure stopped spontaneously after a few seconds. 3 minutes later he had another similar seizure-like episode that lasted for a few seconds. He did strike his head when he fell and is on aspirin daily. On route he was given 2 mg of IV Versed. He is COVID-positive, with multiple electrolyte abnormalities today. reports appetite has been fair, patient denies any diarrhea or other concerning symptoms in the last 2 weeks. He is confused and she is a poor historian. He does take a PPI which may partly be responsible for his low mag, but does not fully explain it. He does also take tramadol every 4 hours which will lower the seizure threshold. This is for chronic back pain. He also does take Adderall but states that recently he has not been taking it. The history on this is not clear. On exam he is very uncomfortable with the H[place] catheter in place and this was removed. He is tremulous and shaky and fidgety. He believes he is on a boat but then becomes frustrated when he cannot fully answer the question asked. He did receive Ativan in the ER for moderate agitation and postictal state. He still appears to be postictal and confused and an aspiration risk. On exam other than his hypervigilance and tremulousness, he has no gross focal neurologic deficits. He does have some wounds on his anterior left lower leg that did not see previously. This appears to be a moderate to severe abrasion. Labs, meds, imaging, EKG reviewed. On initial EKG he had sinus tachycardia with ST depressions lateral leads, which resolved on repeat EKG a couple hours later. Patient denies any chest pain. Troponin elevation is likely secondary to recent seizure as a CK, elevated lactic acid and prolactin level. Multiple electrolyte abnormalities including a calcium 5.7, mag of 0.5, potassium 2.5 are being corrected. He has evidence of acute kidney injury with a creatinine of 1.10 up from his baseline of 0.7. Anion gap metabolic acidosis likely secondary to elevated lactate level. CK level is 4500. Elevated LFTs likely also secondary to seizure activity. He is oxygenating well on room air with chest x- ray revealing no active disease in the chest. CT head was clear. 1. Seizure-likely provoked in setting of profound electrolyte abnormalities and COVID. Also on tramadol and Adderall. Given 1 dose of cefepime in the ER today. Cefepime was discontinued as there is no clear need for this. Continuing to correct metabolic abnormalities. IV fluids to be continued and holding statin until CK downtrends. Load of Keppra given and will continue 500 mg twice daily until electrolytes corrected per neurology recommendations. MRI brain without contrast if encephalopathy does not clear with repletion of electrolytes. Routine EEG ordered for a.m. He is still having postictal confusion. We will remove Hays so is he does not remove this himself and cause more harm. Ativan ordered for additional anxiety or agitation overnight or if recurrent seizures. Continue seizure precautions for the time being. 2. Electrolyte abnormalities-repleting calcium, potassium, magnesium. Hold omeprazole 3. STEPH-likely related to rhabdo/dehydration in setting of COVID infection. Repeat BMP after rehydration with IV fluids 4. COVID-19 infection-supportive care, no indication for steroid therapy 5. Rhabdomyolysis secondary to seizure-continue IV fluids overnight with CK trend in AM. 6. Schizoaffective disorder-uncertain baseline. As noted above consider MRI if he is encephalopathy does not clear with electrolyte correction. 7.-Prolonged QT-avoid prolonged QT agents. Repeat EKG in AM. 8. Demand ischemia-ST depressions and rising troponin partly secondary to seizure, however, patient has known h/o CAD. Echo ordered for am. Cont to spencer turner on telemetry. DO Adryan
[2023-05-26 17:54] LABS: Magnesium 0.5 mg/dl (1.7-2.4)
[2023-05-26 17:56] LABS: Mucus Urine Present (None Prsent)
[2023-05-26] MEDS ORDERED: MAGNESIUM SULFATE / D5W 1 GM/100 ML BAG IV SCH (17:57)
[2023-05-26 18:17] LABS: Adenovirus PCR Not Detected (NotDetected); Bordetella parapertussis PCR Not Detected (NotDetected); Bordetella pertussis PCR Not Detected (NotDetected); Chlamydia pneumoniae PCR Not Detected (NotDetected); Coronavirus 229E PCR Not Detected (NotDetected); Coronavirus HKU1 PCR Not Detected (NotDetected); Coronavirus NL63 PCR Not Detected (NotDetected); Coronavirus OC43PCR Not Detected (NotDetected); Human Metapneumovirus PCR Not Detected (NotDetected); Influenza A PCR Not Detected (NotDetected); Influenza B PCR Not Detected (NotDetected); Mycoplasma pneumoniae PCR Not Detected (NotDetected); Parainfluenza Virus 1 PCR Not Detected (NotDetected); Parainfluenza Virus 2 PCR Not Detected (NotDetected); Parainfluenza Virus 3 PCR Not Detected (NotDetected); Parainfluenza Virus 4 PCR Not Detected (NotDetected); Respiratory Syncytial VirusPCR Not Detected (NotDetected); Rhinovirus/Enterovirus PCR Not Detected (NotDetected)
[2023-05-26 18:20] LABS: Troponin I High Sensitivity 64.6 pg/ml (0-20)
[2023-05-26 18:22] LABS: Coronavirus CoV-2 (COVID19)PCR DETECTED (NotDetected)
[2023-05-26] MEDS ORDERED: [UNRECOGNIZED DRUG - OTHER] IV SCH (18:30)
[2023-05-26] MEDS ORDERED: POTASSIUM CHLORIDE IV SCH (18:30)
[2023-05-26] MEDS ORDERED: MAGNESIUM SULFATE IV SCH (18:30)
[2023-05-26] MEDS ORDERED: levETIRAcetam 1,000 MG in 0.9 % SODIUM CHLORIDE 100 ML IV STA (18:34)
--- NOTE | 2023-05-26 19:18 | Neurology Consultation ---
Date of Consultation May 26, 2023 Assessment & Plan (1) Seizure-like activity: Durga Noyola is a 63 yo M presenting with seizure activity in the setting of profound electrolyte abnormalities and COVID. He is unvaccinated. Given the history this seizure activity is most likely provoked by both covid and the electrolyte abnormalities and I believe explains his rhabdo. Recommend otherwise stopping the statin until the CK trends down and switching from cefepime (if abx are needed) which does lower the seizure threshold. He was loaded with Keppra but in the setting of a provoked seizure it does not need to be continued past the acute inciting cause. Otherwise given his confusion which is again presumed delirium from covid and electrolye imbalance, would recommend an MRI if the mental status does not return to baseline with correction of the underlying factors as covid cause cause stroke. -- Correct metabolic abnormalities -- Hold statin until CK downtrends -- Switch or discontinue cefepime -- Okay to load with Keppra and continue 500mg BID until electrolytes are corrected -- MRI brain without contrast if encephalopathy does not clear with repletion of electrolytes -- Routine EEG to assess for underlying electrographic abnormalities Telehealth Consultation Telehealth Information Telehealth Information: I performed this visit using a real-time telehealth connection between my location and the patients location ([facility]). After connecting through interactive tele-video, patient was identified by name and date of and/or wristband check.Patient (or authorized healthcare floor representative) was informed that this was a telemedicine visit and it was being conducted confidentially over secure lines. My office door was closed and no one else was present in the room with me.Patient (or authorized healthcare floor representative) provided consent to proceed with the visit, expressed an understanding of privacy and security of the telemedicine visit, and gave per mission to have a hospital floor representative in the room in order to assist with the visit and to conduct portions of the visit, as needed. I informed the patient (or authorized healthcare floor representative) that I reviewed their record and presented the opportunity for them to ask any questions regarding the visit today. The patient agreed to participate. History of Present Illness Reason for Consultation: Seizure Requesting Physician: Dr. Cornelius Attending Physician: Leeann Cornelius, DO History of Present Illness Durga Noyola is a 63 yo M presenting after his neighbor found him down on floor in his apartment after bringing him groceries. She believes he was only down for 15-20 minutes since she last saw him normal. She reports at bedside that he is more confused than normal but overall the patient states that he feels better and does not remember what happened at home. The last thing he remembers is tying fishing flies which he reports is a hobby of his. He also reports taking his medications as prescribed and is otherwise able to care for most of his IADLs independently but does not drive. He has a history of one prior seizure in 2017 but is not on seizure medication. The patient is otherwise oriented to [facility] but is confused and unable to contribute further to the history. Allergies Allergy/AdvReac Type Severity Reaction Status Date / Time hydrocodone Allergy Severe RENAL Verified 05/26/23 17:28 INSUFFICIENCY varenicline [From Chantix] Allergy Severe Seizure Verified 05/26/23 17:28 Iodinated Contrast Media Allergy Intermediate nausea , Verified 05/26/23 17:28 [Iodinated Contrast- Oral vomiting and IV Dye] and vertigo shellfish derived Allergy Intermediate VOMITING/PAIN Verified 05/26/23 17:28 IN STOMACH chlorpromazine Allergy Unknown UNKNOWN Verified 05/26/23 17:28 haloperidol Allergy Unknown Unknown Verified 05/26/23 17:28 oxcarbazepine AdvReac Severe RENAL Verified 05/26/23 17:28 INSUFFICIENCY Home Medications Medication Instructions Recorded Confirmed Type aspirin 325 mg tablet 162 mg PO QAM 07/10/18 05/26/23 History atenolol 25 mg tablet 25 mg PO DAILY 07/10/18 05/26/23 History atorvastatin 40 mg tablet 40 mg PO DAILY 07/10/18 05/26/23 History cholecalciferol (vitamin D3) 25 1,000 unit PO DAILY 07/10/18 05/26/23 History mcg (1,000 unit) capsule (Vitamin D3) doxepin 100 mg capsule 100 mg PO HS 07/10/18 05/26/23 History fluticasone propionate 50 2 spray intranasal DAILY 07/10/18 05/26/23 History mcg/actuation nasal spray,suspension gabapentin 300 mg capsule See Rx Instructions .Route .COMPLEX 07/10/18 05/26/23 History lisinopril 2.5 mg tablet 2.5 mg PO DAILY 07/10/18 05/26/23 History multivitamin 1 tab PO DAILY 07/10/18 05/26/23 History nitroglycerin 0.4 mg sublingual 0.4 mg sublingual UD PRN Chest Pain 07/10/18 05/26/23 History tablet omeprazole 20 mg capsule,delayed 20 mg PO DAILY 07/10/18 05/26/23 History release tramadol 50 mg tablet 50 mg PO Q6 PRN Pain 07/10/18 05/26/23 History vitamin B complex 1 tab PO DAILY 07/10/18 05/26/23 History mirtazapine 15 mg tablet 30 mg PO HS 09/07/21 05/26/23 History sildenafil 100 mg tablet 100 mg PO DIRECTED PRN Erectile 09/07/21 05/26/23 History Dysfunction Patient History Medical History (Updated 05/26/23 @ 17:58 by Scarlett Breaux MD) Electrolyte disturbance Rhabdomyolysis ADHD Asperger syndrome Urticaria Seizure Umbilical hernia COPD (chronic obstructive pulmonary disease) Dyslipidemia Coronary artery disease Anxiety Schizoaffective disorder Surgical History Status post cholecystectomy Status post coronary artery stent placement "LAD" Family History Other Family history non-contributory Social History Smoking Status: Former smoker Tobacco Type: Cigarettes Cigarettes Per Day: 3; Smoking End Date: 2 YEARS AGO; Second Hand Exposure: No; Do You Dip or Chew Tobacco: No; Tobacco Cessation Education Requested by Patient: No Hx Alcohol Use: No Hx Substance Use: No Preferred Language: Japanese Communication Ability: Effective [employer] Required: No Beliefs That Will Affect Care: None marital status: Current Living Situation: Alone Other Information That Helps Us Care for You: No Feels Safe at Home: Yes Safety Concerns: Feels Safe At This Time Assistive Devices: None Review of Systems +seizure, +cough Physical Exam Neurological Examination: Mental Status: Awake and alert. Oriented to person, place, and time. Fluent but with nonsenical speech at times. Comprehension intact. Affect appropriate. Cranial Nerves: II: Reads NIHSS cards, III/IV/: Versions intact without nystagmus, no gaze preference. VII: Facial expression symmetric VIII: Hearing intact to voice IX/X: Palate elevates symmetrically XI: Shoulder shrug symmetric XII: Tongue midline Motor: Strength was symmetric and antigravity throughout. Pronator drift was absent. There was a mild action tremor bilaterally Reflexes: Unable to assess over telemedicine Results & Data Vital Signs (Past 12 Hours) Vital Signs Temp Pulse Pulse Resp BP BP Pulse Ox 05/26/23 18:31 37.1 C 102 H 20 151/84 H 97 05/26/23 17:52 108 H 35 H 147/110 H 92 05/26/23 17:30 108 H 35 H 147/110 H 05/26/23 17:00 115 H 33 H 118/92 92 05/26/23 16:31 135 H 31 H 122/95 92 05/26/23 16:00 139 H 36 H 169/97 H 96 05/26/23 15:55 134 H 36 H 132/89 92 05/26/23 15:34 138 H 20 124/82 91 05/26/23 15:23 129/91 05/26/23 15:23 139 H 22 95 05/26/23 15:18 36.8 C 140 H 20 129/91 94 05/26/23 15:16 145 H 05/26/23 15:16 144 H 20 95 05/26/23 15:15 145 H 24 96 O2 Del Method 05/26/23 18:31 Room Air 05/26/23 17:52 Room Air 05/26/23 17:30 05/26/23 17:00 05/26/23 16:31 05/26/23 16:00 05/26/23 15:55 05/26/23 15:34 05/26/23 15:23 05/26/23 15:23 05/26/23 15:18 Room Air 05/26/23 15:16 05/26/23 15:16 05/26/23 15:15 Laboratory Results Abnormal lab results 05/26/23 05/26/23 05/26/23 Range/Units 15:04 15:15 15:43 WBC 13.12 H (4.8-10.8) K/ul RBC 4.48 L (4.70-6.10) M/uL Hgb 13.3 L (14.0-18.0) g/dl Hct 37.0 L (42.0-52.0) % Neut # (Auto) 11.44 H (1.40-6.50) K/uL Lymph # (Auto) 0.76 L (1.20-3.40) K/uL [place] # (Auto) 0.76 H (0.11-0.59) K/uL VBG pH 7.48 H (7.36-7.41) Potassium 2.5 L* (3.5-5.1) mmol/L Chloride 94 L (98-107) mmol/L Anion Gap 21 H (3-11) Glucose 174 H (70-99(Fasting)) mg/dl POC Glucose 188 H (70-99) mg/dl Lactate 4.4 H* (0.4-2.0) mmol/L Calcium 5.7 L* (8.6-10.3) mg/dl Magnesium 0.5 L* (1.7-2.4) mg/dl Total Bilirubin 1.7 H (0.2-1.0) mg/dl AST 118 H (13-39) U/L ALT 57 H (7-52) U/L Total Creatine Kinase 4564 H (30-223) U/L Troponin I High Sens 35.5 H (0-20) pg/ml Procalcitonin 1.05 H (0-0.5) ng/ml Urine Appearance (Clear) Urine Protein (Negative) Urine Glucose (UA) (Negative) Urine Ketones (Negative) Urine Blood (Negative) Urine Nitrite (Negative) Urine Bilirubin (Negative) Ur Leukocyte Esterase (Negative) Urine WBC (Auto) (0-5) /hpf U Epithel Cells (Auto) (0-5) /lpf Urine Mucus (None Prsent) Salicylates < 3.0 L (3.0-30) mg/dl Acetaminophen < 3 L (10-30) ug/ml SARS-CoV-2 (PCR) (NotDetected) 05/26/23 05/26/23 05/26/23 Range/Units 17:00 17:20 17:39 WBC (4.8-10.8) K/ul RBC (4.70-6.10) M/uL Hgb (14.0-18.0) g/dl Hct (42.0-52.0) % Neut # (Auto) (1.40-6.50) K/uL Lymph # (Auto) (1.20-3.40) K/uL [place] # (Auto) (0.11-0.59) K/uL VBG pH (7.36-7.41) Potassium (3.5-5.1) mmol/L Chloride (98-107) mmol/L Anion Gap (3-11) Glucose (70-99(Fasting)) mg/dl POC Glucose (70-99) mg/dl Lactate (0.4-2.0) mmol/L Calcium (8.6-10.3) mg/dl Magnesium (1.7-2.4) mg/dl Total Bilirubin (0.2-1.0) mg/dl AST (13-39) U/L ALT (7-52) U/L Total Creatine Kinase (30-223) U/L Troponin I High Sens 64.6 H* D (0-20) pg/ml Procalcitonin (0-0.5) ng/ml Urine Appearance Cloudy A (Clear) Urine Protein 2+ H (Negative) Urine Glucose (UA) 1+ H (Negative) Urine Ketones 1+ H (Negative) Urine Blood 3+ H (Negative) Urine Nitrite Positive A (Negative) Urine Bilirubin 1+ H (Negative) Ur Leukocyte Esterase Trace H (Negative) Urine WBC (Auto) 10-30 H (0-5) /hpf U Epithel Cells (Auto) >30 H (0-5) /lpf Urine Mucus Present A (None Prsent) Salicylates (3.0-30) mg/dl Acetaminophen (10-30) ug/ml SARS-CoV-2 (PCR) DETECTED A* (NotDetected) 05/26/23 Range/Units 19:10 WBC (4.8-10.8) K/ul RBC (4.70-6.10) M/uL Hgb (14.0-18.0) g/dl Hct (42.0-52.0) % Neut # (Auto) (1.40-6.50) K/uL Lymph # (Auto) (1.20-3.40) K/uL [place] # (Auto) (0.11-0.59) K/uL VBG pH (7.36-7.41) Potassium (3.5-5.1) mmol/L Chloride (98-107) mmol/L Anion Gap (3-11) Glucose (70-99(Fasting)) mg/dl POC Glucose 123 H (70-99) mg/dl Lactate (0.4-2.0) mmol/L Calcium (8.6-10.3) mg/dl Magnesium (1.7-2.4) mg/dl Total Bilirubin (0.2-1.0) mg/dl AST (13-39) U/L ALT (7-52) U/L Total Creatine Kinase (30-223) U/L Troponin I High Sens (0-20) pg/ml Procalcitonin (0-0.5) ng/ml Urine Appearance (Clear) Urine Protein (Negative) Urine Glucose (UA) (Negative) Urine Ketones (Negative) Urine Blood (Negative) Urine Nitrite (Negative) Urine Bilirubin (Negative) Ur Leukocyte Esterase (Negative) Urine WBC (Auto) (0-5) /hpf U Epithel Cells (Auto) (0-5) /lpf Urine Mucus (None Prsent) Salicylates (3.0-30) mg/dl Acetaminophen (10-30) ug/ml SARS-CoV-2 (PCR) (NotDetected) Diagnostic Findings CT head - Unremarkable
[2023-05-26] MEDS ORDERED: LORazepam 0.5 MG in SYRINGE 0.25 ML IV PRN (19:54)
[2023-05-26] MEDS ORDERED: LORazepam 1 MG in SYRINGE 0.5 ML IV PRN ×2 (19:56→21:26)
[2023-05-26] MEDS ORDERED: DOXEPIN HCL 50 MG CAPSULE PO SCH (21:00)
[2023-05-26] MEDS ORDERED: Ativan IV Alcohol Withdrawal--Active Protocol IV PRN (21:24)
[2023-05-26] MEDS ORDERED: LORazepam 3 MG in SYRINGE 1.5 ML IV PRN (21:26)
--- NOTE | 2023-05-26 21:28 | Communication Note ---
Date of Service: May 26, 2023 Notified by RN of concerns for possible alcohol withdrawal. Increased confusion and agitation Patient with past history of alcohol abuse as per girlfriend. Patient girlfriend cannot say for sure if patient drinking heavily again. Patient tachypneic with dry cough symptoms as per RN. Lowest O2 sats of 91 on room air documented since admission AP Encephalopathy Multifactorial Possible alcohol withdrawal Complicated UTI, possible sepsis given elevated procalcitonin, patient received cefepime at the ER on admission Severe COVID respiratory illness/bronchitis With documented O2 sats of less than 94 DT precautions, initiate MAEGAN S protocol Urine CS, Azactam for UTI for now given sepsis criteria Decadron for severe COVID respiratory illness low-dose to decrease potential for worsening encephalopathy
[2023-05-26] MEDS ORDERED: THIAMINE HCL 100 MG in SYRINGE 9 ML IV STA (21:29)
[2023-05-26 21:31] LABS: BUN Creatinine Ratio 17.6 (10-20); Calcium 5.5 mg/dl (8.6-10.3); Creatinine Clr Calc Pharmacy 88.7 ml/min; Est GFR (African American) 108.2 ml/min; Est GFR (Non-African American) 93.4 ml/min; Potassium 2.2 mmol/L (3.5-5.1)
[2023-05-26] MEDS: GABAPENTIN 600 MG TAB PO SCH (21:52)
[2023-05-26 22:19] LABS: Albumin Level 3.1 gm/dl (3.4-5.0)
[2023-05-26] MEDS: MAGNESIUM SULFATE / D5W 1 GM/100 ML BAG IV SCH (22:48)
[2023-05-27] MEDS: MAGNESIUM SULFATE / D5W 1 GM/100 ML BAG IV SCH ×3 (00:24→04:39)
[2023-05-27 00:42] LABS: Appearance Urine Cloudy (Clear); Bacteria Urine Automated Negative (Negative); Blood Urine 3+ (Negative); Color Urine Dark Yellow; Epithelial Cell Urine Auto >30 /lpf (0-5); Glucose Urine UA Trace (Negative); Ketones Urine 2+ (Negative); Leukocyte Esterase Urine Trace (Negative); Nitrite Urine Negative (Negative); Protein Urine 2+ (Negative); Specific Gravity Urine 1.024 (1.000-1.030); Urobilinogen Urine Negative (Negative); pH Urine 6.5 (4.5-7.5)
[2023-05-27 01:04] LABS: Bilirubin Urine 1+ (Negative)
[2023-05-27 01:11] LABS: Cast Urine Automated >30 /lpf (0-5); Granular Casts Urine >30 /lpf (0)
[2023-05-27 01:12] LABS: Renal Epithelial Cells Urine 0-5 /lpf (0-5)
[2023-05-27 01:24] LABS: Amphetamines+Metham, Urine Pos (Neg); Barbiturates, Urine Neg (Neg); Benzodiazepine, Urine Pos (Neg); Cocaine, Urine Neg (Neg); MDMA (Ecstacy), Urine Neg (Neg); Marijuana, Urine Neg (Neg); Methadone, Urine Neg (Neg); Opiate, Urine Neg (Neg); Phencyclidine, Urine Neg (Neg)
[2023-05-27] MEDS ORDERED: LORazepam 1 MG in SYRINGE 0.5 ML IV PRN (01:54)
[2023-05-27] MEDS ORDERED: dexAMETHasone 2 MG in SYRINGE 0 ML IV STA (02:04)
[2023-05-27] MEDS ORDERED: IPRATROPIUM BROMIDE NEB SOLN 0.02% 2.5 ML VIAL INH STA (02:08)
[2023-05-27] MEDS ORDERED: LEVALBUTEROL 1.25MG/0.5ML NEB NEB STA (02:08)
[2023-05-27] MEDS ORDERED: XOPENEX/ATROVENT 1.25mg/0.5MG NEB COMBO NEB STA (02:08)
[2023-05-27] MEDS: LORazepam 2 MG in SYRINGE 1 ML IV PRN ×13 (02:27→23:58)
[2023-05-27] MEDS ORDERED: SODIUM CHLORIDE 0.9% 1,000 ML IV ONE (03:00)
[2023-05-27] MEDS ORDERED: LEVALBUTEROL 1.25 MG/3 ML NEB ONE (03:27)
[2023-05-27] MEDS: AZTREONAM 2,000 MG in DEXTROSE 5% MINI-B 100 ML IV SCH ×3 (04:02→19:28)
[2023-05-27] MEDS: POTASSIUM CHLORIDE / WTR 10 MEQ/100 ML PLCT IV SCH ×14 (04:05→17:39)
[2023-05-27] MEDS: METOPROLOL TARTRATE 1 MG/ML VIAL IV SCH ×2 (04:40→09:41)
[2023-05-27 07:01] LABS: Hematocrit (blood only) 32.9 % (42.0-52.0); Hemoglobin 11.9 g/dl (14.0-18.0); Mean Corpuscular Hemoglobin 30.1 pg (25.0-34.0); Mean Corpuscular Hgb Conc 36.2 g/dL (32.0-36.0); Mean Corpuscular Volume 83.1 fL (80.0-100.0); Mean Platelet Volume 11.5 fL (9.4-12.4); Platelet Count 175 K/uL (130-400); RDW Coefficient of Variation 12.1 % (11.5-14.5); RDW Standard Deviation 37.3 fL (36.4-46.3); Red Blood Count 3.96 M/uL (4.70-6.10); White Blood Count 13.29 K/ul (4.8-10.8)
[2023-05-27 07:29] LABS: Albumin Globulin Ratio 1.1 (0.9-2); Albumin Level 3.2 gm/dl (3.4-5.0); BUN Creatinine Ratio 12.7 (10-20); Bilirubin Direct 0.6 mg/dl (0-0.2); Bilirubin,Total 1.3 mg/dl (0.2-1.0); Calcium 5.8 mg/dl (8.6-10.3); Creatinine Clr Calc Pharmacy 93.1 ml/min; Est GFR (African American) 111.5 ml/min; Est GFR (Non-African American) 96.2 ml/min; Globulin 2.8 gm/dl (2.5-4.0); Potassium 2.4 mmol/L (3.5-5.1); Troponin I High Sensitivity 138.2 pg/ml (0-20)
[2023-05-27] MEDS: levETIRAcetam 500 MG in SODIUM CHLOR 0.9% MINI-B 100 ML IV SCH ×2 (07:31→19:23)
--- NOTE | 2023-05-27 07:55 | XRay Report ---
XR chest 1V portable CLINICAL HISTORY: tachypnea TECHNIQUE: Single frontal radiograph of the chest was obtained. Comparison: Comparison is made to chest radiograph 05/26/2023 FINDINGS: No lines and tubes are seen. Calcified aortic knob is seen. The lungs are clear. No evidence of pleur al effusion or pneumothorax. IMPRESSION: No acute chest disease. ACT 112: Negative or not required by law. Electronically signed by: Rich Quarles M.D. 05/27/2023 7:54 AM
[2023-05-27] MEDS ORDERED: STAT IV/IM STA ×2 (08:22→14:31)
[2023-05-27] MEDS: GABAPENTIN 300 MG CAP PO SCH ×2 (08:23→12:55)
[2023-05-27] MEDS: MULTIVITAMIN TAB PO SCH (08:23)
[2023-05-27] MEDS: lisinopril 2.5 MG TAB PO SCH (08:23)
[2023-05-27] MEDS: ASPIRIN 81 MG ECTAB PO SCH (08:23)
[2023-05-27] MEDS: guaiFENesin 600 MG TABCR PO SCH ×2 (08:23→20:17)
[2023-05-27] MEDS: D5NSS + 20MEQ KCL 20 MEQ/1,000 ML BAG IV SCH ×2 (08:59→17:11)
[2023-05-27] MEDS: CALCIUM GLUCONATE 10% 1,000 MG in SODIUM CHLOR 0.9% MINI-B 50 ML IV SCH ×4 (08:59→15:54)
[2023-05-27] MEDS ORDERED: ATORVASTATIN 40 MG TAB PO SCH (09:00)
[2023-05-27] MEDS ORDERED: THIAMINE HCL 100 MG TAB PO SCH (09:00)
[2023-05-27] MEDS ORDERED: FOLIC ACID 1 MG TAB PO SCH (09:00)
[2023-05-27] MEDS ORDERED: NON-FORMULARY MEDICATION (Omeprazole 20 mg capsule,delayed release(DR/EC)) PO SCH (09:00)
[2023-05-27] MEDS: FLUTICASONE PROPIONATE NA SPR 16 GM BTL SCH (09:00)
[2023-05-27] MEDS: diazePAM 5 MG TABLET PO SCH ×3 (10:17→20:16)
[2023-05-27] MEDS ORDERED: METOPROLOL TARTRATE 1 MG/ML VIAL IV PRN (10:24)
[2023-05-27] MEDS: THIAMINE HCL 200 MG in SODIUM CHLORIDE 0.9% 50 ML IV SCH ×2 (12:02→20:16)
[2023-05-27 13:14] LABS: Albumin Globulin Ratio 1.1 (0.9-2); Albumin Level 2.8 gm/dl (3.4-5.0); BUN Creatinine Ratio 12.7 (10-20); Calcium 6.1 mg/dl (8.6-10.3); Creatinine Clr Calc Pharmacy 116.8 ml/min; Est GFR (African American) 122.4 ml/min; Est GFR (Non-African American) 105.6 ml/min; Globulin 2.6 gm/dl (2.5-4.0); Total Protein 5.4 gm/dl (6.0-8.3)
[2023-05-27 14:00] LABS: Magnesium 2.2 mg/dl (1.7-2.4)
--- NOTE | 2023-05-27 14:48 | Hospitalist Progress Note ---
Date of Service May 27, 2023 Assessment & Plan (1) Seizure: (2) Coronary artery disease: (3) Anxiety: (4) Schizoaffective disorder: (5) COPD (chronic obstructive pulmonary disease): (6) Rhabdomyolysis: (7) Electrolyte disturbance: Plan Mr. Noyola is a 63-year-old male that presented to the ED via EMS after he was found down after a ground-level fall at home. Patient significant other returned home after patient was well all day and was found down. When EMS arrived patient was found to have a 15 to 20-second seizure that occurred twice with similar time. Patient has known isolated seizure in 2017. No new medications and no issues with medication compliance noted by family. CXR negative, head CT negative for ICH and SDH. No midline shift noted. In the ED patient went into SVT and received adenosine 6 mg followed by 12 mg. Patient is admitted to telemetry for management of following condition: Alcohol use disorder Alcohol withdrawal Seizure: Reported history of drinking hard cider/whiskey/beer from family. AST elevated 2 witnessed seizures lasting 15 to 20 seconds; noted flexion in bilateral elbows History of two isolated seizure 2017 after starting Chantix; no new medication or issues with med compliance Head CTno acute abnormality Started on Keppra in the ED; continue for now. Currently on empiric antibiotics As per neurology, recommend to correct metabolic abnormality, hold statin, continue Keppra 500 twice daily until electrolytes are corrected. MRI brain without contrast if encephalopathy does not clear with electrolytes. Routine EEG. Electrolyte disturbance Hypocalcemia Hypomagnesemia Hypokalemia Labs reviewed; potassium3.0, calcium7.1, corrected for albumin Magnesium2.2 Continue to replete potassium and calcium. EKG daily to monitor QTc Rhabdomyolysis: Acute uncontrolled CK up trended to 7900 Currently on IV fluids with D5 NS with KCl at 125 cc/h Monitor urine output Creatinine within normal limits COVID-19: asymptomatic incidental finding on biofire Chest x-ray personally reviewed; no infiltrates present. Initially started on dexamethasone; discontinued for now. Demand ischemia EKG on admission personally reviewed; sinus tachycardia with ST depression in lateral leads. High sensitive troponin increased to 153 and down trended Echocardiogram shows EF of 55 to 60%; grade 1 diastolic dysfunction SVT: Acute uncontrolled Patient went into SVT in the ED; received adenosine 6 mg followed by 12 mg; currently sinus tachycardia mid teens Continue to monitor on telemetry CAD: HTN: Chronic stable Takes atenolol, aspirin 162 mg, and lisinopril; continue Anxiety: Schizoaffective disorder: Takes dextro-amphetamine; hold for now Disposition: PCP: Dr. Jones CODE STATUS: Full code VTE prophylaxis: Teds and SCDs for now Time spent evaluating patient, direct bedside care, chart review, placing orders, interpretation of diagnostic studies, discussion with consultants, patient, and family members, as well as other required patient management act ivities is 60 minutes Please note the above document was generated using voice recognition software. It may contain grammatical, syntax or spelling errors. Any formal questions or concerns about the content, text or information contained within the body of this dictation should be directly addressed to the provider for clarification Admission and Anticipated Discharge Date Admission Date: May 26, 2023 Subjective Patient seen and examined at bedside. Patient has. Of agitation and aggression; has been requiring multiple doses of IV Ativan. Review of Systems Review of Systems: All systems reviewed & are unremarkable except as noted in Subjective Physical Exam Physical Exam: Constitutional: Agitated; not oriented to time place or person. Respiratory: Bilateral vesicular breath sound Cardiovascular: RRR, no murmur, no edema Vessels: no JVD or carotid bruit Chest: normal inspection of chest Abdomen: normal bowel sounds, soft, nontender, no hepatosplenomegaly Skin: no rashes, warm and dry normal turgor Neurologic: Agitated, does not follow any commands. Grossly moves all extremities Results & Data Results & Data Vital Signs (Past 12 Hours) Vital Signs Temp Pulse Pulse Resp BP BP BP 05/27/23 13:00 155/68 H 05/27/23 10:18 84 146/70 H 05/27/23 10:12 36.5 C 84 23 146/70 H 05/27/23 09:41 90 05/27/23 08:00 103 H 05/27/23 08:00 05/27/23 07:41 36.7 C 102 H 32 H 150/68 H 05/27/23 05:05 108 H 132/70 05/27/23 04:38 106 H 136/78 05/27/23 03:44 109 H 05/27/23 02:36 36.7 C 112 H 34 H 138/55 L Pulse Ox O2 Del Method 05/27/23 13:00 05/27/23 10:18 05/27/23 10:12 95 Room Air 05/27/23 09:41 05/27/23 08:00 05/27/23 08:00 Room Air 05/27/23 07:41 96 Room Air 05/27/23 05:05 05/27/23 04:38 05/27/23 03:44 93 Room Air 05/27/23 02:36 94 Room Air Laboratory Results Laboratory Results WBC 13.29 K/ul (4.8-10.8) H 05/27/23 06:50 RBC 3.96 M/uL (4.70-6.10) L 05/27/23 06:50 Hgb 11.9 g/dl (14.0-18.0) L 05/27/23 06:50 Hct 32.9 % (42.0-52.0) L 05/27/23 06:50 MCV 83.1 fL (80.0-100.0) 05/27/23 06:50 MCH 30.1 pg (25.0-34.0) 05/27/23 06:50 MCHC 36.2 g/dL (32.0-36.0) H 05/27/23 06:50 RDW Std Deviation 37.3 fL (36.4-46.3) 05/27/23 06:50 RDW Coeff of Dana 12.1 % (11.5-14.5) 05/27/23 06:50 Plt Count 175 K/uL (130-400) 05/27/23 06:50 MPV 11.5 fL (9.4-12.4) 05/27/23 06:50 Immature Gran % (Auto) 0.8 % 05/26/23 15:15 Neut % (Auto) 87.2 % 05/26/23 15:15 Lymph % (Auto) 5.8 % 05/26/23 15:15 Warren % (Auto) 5.8 % 05/26/23 15:15 Eos % (Auto) 0.2 % 05/26/23 15:15 Baso % (Auto) 0.2 % 05/26/23 15:15 Neut # (Auto) 11.44 K/uL (1.40-6.50) H 05/26/23 15:15 Lymph # (Auto) 0.76 K/uL (1.20-3.40) L 05/26/23 15:15 Warren # (Auto) 0.76 K/uL (0.11-0.59) H 05/26/23 15:15 Eos # (Auto) 0.02 K/uL (0.00-0.50) 05/26/23 15:15 Baso # (Auto) 0.03 K/uL (0.00-0.20) 05/26/23 15:15 Immature Gran # (Auto) 0.11 K/uL (0.01-0.20) 05/26/23 15:15 VBG pH 7.48 (7.36-7.41) H 05/26/23 15:43 VBG pCO2 41 mmHg (38-50) 05/26/23 15:43 VBG pO2 < 20 mmHg 05/26/23 15:43 VBG HCO3 31 mmol/L 05/26/23 15:43 VBG O2 Saturation < 60.0 % 05/26/23 15:43 VBG Base Excess 6.4 mEq/L 05/26/23 15:43 Sodium 139 mmol/L (136-145) 05/27/23 12:31 Potassium 3.0 mmol/L (3.5-5.1) L D 05/27/23 12:31 Chloride 104 mmol/L (98-107) 05/27/23 12:31 Carbon Dioxide 28 mmol/L (21-32) 05/27/23 12:31 Anion Gap 7 (3-11) 05/27/23 12:31 BUN 8 mg/dl (6-23) 05/27/23 12:31 Creatinine 0.63 mg/dl (0.6-1.4) 05/27/23 12:31 Est Cr Clr Drug Dosing 116.8 ml/min 05/27/23 12:31 Est GFR ( Amer) 122.4 ml/min 05/27/23 12:31 Est GFR (Non-Af Amer) 105.6 ml/min 05/27/23 12:31 BUN/Creatinine Ratio 12.7 (10-20) 05/27/23 12:31 Glucose 174 mg/dl (70-99(Fasting)) H 05/27/23 12:31 POC Glucose 123 mg/dl (70-99) H 05/26/23 19:10 Lactate 1.4 mmol/L (0.4-2.0) 05/26/23 17:39 Calcium 6.1 mg/dl (8.6-10.3) L 05/27/23 12:31 Phosphorus 3.0 mg/dl (2.5-4.9) 05/26/23 17:39 Magnesium 2.2 mg/dl (1.7-2.4) 05/27/23 12:31 Total Bilirubin 1.0 mg/dl (0.2-1.0) 05/27/23 12:31 Direct Bilirubin 0.6 mg/dl (0-0.2) H 05/27/23 06:50 AST 88 U/L (13-39) H 05/27/23 12:31 ALT 40 U/L (7-52) 05/27/23 12:31 Alkaline Phosphatase 87 U/L (34-104) 05/27/23 12:31 Ammonia 29.0 umol/L (18-72) 05/27/23 00:30 Total Creatine Kinase 7975 U/L (30-223) H 05/27/23 06:50 Troponin I High Sens 138.2 pg/ml (0-20) H* 05/27/23 06:50 Total Protein 5.4 gm/dl (6.0-8.3) L 05/27/23 12:31 Albumin 2.8 gm/dl (3.4-5.0) L 05/27/23 12:31 Globulin 2.6 gm/dl (2.5-4.0) 05/27/23 12:31 Albumin/Globulin Ratio 1.1 (0.9-2) 05/27/23 12:31 Procalcitonin 1.05 ng/ml (0-0.5) H 05/26/23 15:15 Urine Color Dark Yellow 05/26/23 23:57 Urine Appearance Cloudy (Clear) A 05/26/23 23:57 Urine pH 6.5 (4.5-7.5) 05/26/23 23:57 Ur Specific [place] 1.024 (1.000-1.030) 05/26/23 23:57 Urine Protein 2+ (Negative) H 05/26/23 23:57 Urine Glucose (UA) Trace (Negative) H 05/26/23 23:57 Urine Ketones 2+ (Negative) H 05/26/23 23:57 Urine Blood 3+ (Negative) H 05/26/23 23:57 Urine Nitrite Negative (Negative) 05/26/23 23:57 Urine Bilirubin 1+ (Negative) H 05/26/23 23:57 Urine Urobilinogen Negative (Negative) 05/26/23 23:57 Ur Leukocyte Esterase Trace (Negative) H 05/26/23 23:57 Urine WBC (Auto) 10-30 /hpf (0-5) H 05/26/23 23:57 Urine RBC (Auto) 5-10 /hpf (0-4) H 05/26/23 23:57 U Hyaline Cast (Auto) >30 /lpf (0-5) H 05/26/23 23:57 U Epithel Cells (Auto) >30 /lpf (0-5) H 05/26/23 23:57 Urine Bacteria (Auto) Negative (Negative) 05/26/23 23:57 Ur Renal Epithelial Cell 0-5 /lpf (0-5) 05/26/23 23:57 Granular Casts >30 /lpf (0) H 05/26/23 23:57 Urine Mucus Present (None Prsent) A 05/26/23 17:00 Salicylates < 3.0 mg/dl (3.0-30) L 05/26/23 15:15 Urine Opiates Screen Neg (Neg) 05/26/23 23:57 Ur Methadone, Qual Neg (Neg) 05/26/23 23:57 Acetaminophen < 3 ug/ml (10-30) L 05/26/23 15:15 Urine Barbiturates Neg (Neg) 05/26/23 23:57 Ur Phencyclidine (PCP) Neg (Neg) 05/26/23 23:57 U Amphetamin/Meth Scrn Pos (Neg) H 05/26/23 23:57 MDMA (Ecstasy) Screen Neg (Neg) 05/26/23 23:57 U Benzodiazepines Scrn Pos (Neg) H 05/26/23 23:57 Ur Cocaine Metabolite Neg (Neg) 05/26/23 23:57 U Marijuana (THC) Screen Neg (Neg) 05/26/23 23:57 Ethyl Alcohol mg/dL < 10.0 mg/dl (<10.0) 05/26/23 15:43 Adenovirus (PCR) Not Detected (NotDetected) 05/26/23 17:20 B. pertussis DNA (PCR) Not Detected (NotDetected) 05/26/23 17:20 B.parapertussis DNA PCR Not Detected (NotDetected) 05/26/23 17:20 C. pneumoniae DNA (PCR) Not Detected (NotDetected) 05/26/23 17:20 Coronavirus OC43 (PCR) Not Detected (NotDetected) 05/26/23 17:20 Coronavirus HKU1 (PCR) Not Detected (NotDetected) 05/26/23 17:20 Coronavirus 229E (PCR) Not Detected (NotDetected) 05/26/23 17:20 SARS-CoV-2 (PCR) DETECTED (NotDetected) A* 05/26/23 17:20 Coronavirus NL63 (PCR) Not Detected (NotDetected) 05/26/23 17:20 Human Metapneumovir PCR Not Detected (NotDetected) 05/26/23 17:20 Influenza Type A (PCR) Not Detected (NotDetected) 05/26/23 17:20 Influenza Type B (PCR) Not Detected (NotDetected) 05/26/23 17:20 M. pneumoniae (PCR) Not Detected (NotDetected) 05/26/23 17:20 Parainfluenza 1 (PCR) Not Detected (NotDetected) 05/26/23 17:20 Parainfluenza 2 (PCR) Not Detected (NotDetected) 05/26/23 17:20 Parainfluenza 3 (PCR) Not Detected (NotDetected) 05/26/23 17:20 Parainfluenza 4 (PCR) Not Detected (NotDetected) 05/26/23 17:20 RSV (PCR) Not Detected (NotDetected) 05/26/23 17:20 Entero/Rhino (PCR) Not Detected (NotDetected) 05/26/23 17:[address] 05/26/23 15:02 CT head/brain wo con CLINICAL HISTORY: Fall on thinners Technique: Contiguous axial CT images of the head were acquired from the base of the skull to the vertex without intravenous contrast administration. Images were viewed in brain, subdural and bone windows. Automated dose lowering techniques and/or adjustment according to patient size were utilized for this exam. Comparison: Comparison is made to CT head 01/15/2022 Findings: Areas of decreased attenuation are present in the periventricular and sub cortical white matter bilaterally consistent with small vessel ischemic disease. Generalized cerebral atrophy with commensurate enlargement of the ventricles, sulci, and cisterns is also present. There is no acute intracranial hemorrhage or evidence of acute territorial infarction. No shift of the midline structures, mass effect, or extra-axial abnormalities are shown. Atherosclerotic calcifications are present in the intracranial segments of the internal carotid arteries. Right maxillary mucous retention cyst is seen. The orbits appear normal. There are no acute fractures of the calvaria or scalp swelling. Impression: No acute intracranial hemorrhage, no evidence of acute territorial infarction or other acute intracranial disease process. ACT 112: Negative or not required by law. Electronically signed by: Rich Quarles M.D. 05/26/2023 3:28 PM Chest X-Ray 05/27/23 01:21 XR chest 1V portable CLINICAL HISTORY: tachypnea TECHNIQUE: Single frontal radiograph of the chest was obtained. Comparison: Comparison is made to chest radiograph 05/26/2023 FINDINGS: No lines and tubes are seen. Calcified aortic knob is seen. The lungs are clear. No evidence of pleural effusion or pneumothorax. IMPRESSION: No acute chest disease. ACT 112: Negative or not required by law. Electronically signed by: Rich Quarles M.D. 05/27/2023 7:54 AM
[2023-05-27] MEDS: GABAPENTIN 600 MG TAB PO SCH (20:17)
[2023-05-27] MEDS ORDERED: Nursing to Pharmacy Communication SCH (21:00)
[2023-05-28] MEDS: LORazepam 2 MG in SYRINGE 1 ML IV PRN ×8 (01:38→18:47)
[2023-05-28] MEDS: AZTREONAM 2,000 MG in DEXTROSE 5% MINI-B 100 ML IV SCH ×2 (02:03→10:22)
[2023-05-28] MEDS: diazePAM 5 MG TABLET PO SCH ×4 (02:04→20:34)
[2023-05-28] MEDS: D5NSS + 20MEQ KCL 20 MEQ/1,000 ML BAG IV SCH ×3 (03:01→14:08)
[2023-05-28] MEDS: THIAMINE HCL 200 MG in SODIUM CHLORIDE 0.9% 50 ML IV SCH ×3 (03:02→20:32)
[2023-05-28] MEDS: levETIRAcetam 500 MG in SODIUM CHLOR 0.9% MINI-B 100 ML IV SCH ×2 (06:04→18:23)
[2023-05-28 07:29] LABS: Basophils # (auto) 0.02 K/uL (0.00-0.20); Basophils % (auto) 0.2 %; Eosinophils # (auto) 0.08 K/uL (0.00-0.50); Eosinophils % (auto) 0.6 %; Hematocrit (blood only) 29.2 % (42.0-52.0); Hemoglobin 10.5 g/dl (14.0-18.0); Immature Granulocytes # (auto) 0.06 K/uL (0.01-0.20); Immature Granulocytes % (auto) 0.5 %; Lymphocytes # (auto) 1.14 K/uL (1.20-3.40); Lymphocytes % (auto) 9.2 %; Mean Corpuscular Hemoglobin 29.7 pg (25.0-34.0); Mean Corpuscular Volume 82.7 fL (80.0-100.0); Mean Platelet Volume 11.6 fL (9.4-12.4); Monocytes # (auto) 0.35 K/uL (0.11-0.59); Monocytes % (auto) 2.8 %; Neutrophils # (auto) 10.74 K/uL (1.40-6.50); Neutrophils % (auto) 86.7 %; Platelet Count 203 K/uL (130-400); RDW Coefficient of Variation 12.2 % (11.5-14.5); RDW Standard Deviation 37.1 fL (36.4-46.3); Red Blood Count 3.53 M/uL (4.70-6.10); White Blood Count 12.39 K/ul (4.8-10.8)
[2023-05-28 07:44] LABS: Phosphorus 1.7 mg/dl (2.5-4.9)
[2023-05-28 07:45] LABS: Albumin Level 2.8 gm/dl (3.4-5.0); Bilirubin,Total 0.9 mg/dl (0.2-1.0); Calcium 6.3 mg/dl (8.6-10.3); Est GFR (African American) 134.6 ml/min; Est GFR (Non-African American) 116.1 ml/min; Globulin 2.7 gm/dl (2.5-4.0); Potassium 2.4 mmol/L (3.5-5.1); Total Protein 5.5 gm/dl (6.0-8.3)
[2023-05-28] MEDS ORDERED: POTASSIUM PHOS 3 MMOL/1 ML INFUSION IV STA (07:51)
[2023-05-28] MEDS ORDERED: STAT IV/IM STA (07:51)
[2023-05-28] MEDS: guaiFENesin 600 MG TABCR PO SCH ×2 (07:59→20:45)
[2023-05-28] MEDS: MULTIVITAMIN TAB PO SCH (07:59)
[2023-05-28] MEDS: lisinopril 2.5 MG TAB PO SCH (07:59)
[2023-05-28] MEDS: GABAPENTIN 300 MG CAP PO SCH ×2 (07:59→14:36)
[2023-05-28] MEDS: FLUTICASONE PROPIONATE NA SPR 16 GM BTL SCH (07:59)
[2023-05-28] MEDS: ASPIRIN 81 MG ECTAB PO SCH (07:59)
[2023-05-28] MEDS ORDERED: POTASSIUM PHOSPHATE 40 MMOL in SODIUM CHLORIDE 0.9% 1,000 ML IV ONE (08:00)
[2023-05-28 08:08] LABS: INR 2.2 (0.9-1.1)
[2023-05-28] MEDS: CALCIUM GLUCONATE 10% 1,000 MG in SODIUM CHLOR 0.9% MINI-B 50 ML IV SCH ×2 (08:45→09:30)
[2023-05-28] MEDS ORDERED: dexAMETHasone 2 MG in SYRINGE 0 ML IV SCH (09:00)
[2023-05-28] MEDS: POTASSIUM CHLORIDE / WTR 10 MEQ/100 ML PLCT IV SCH ×4 (13:15→15:58)
[2023-05-28] MEDS ORDERED: Nursing to Pharmacy Communication SCH (13:30)
--- NOTE | 2023-05-28 14:44 | Hospitalist Progress Note ---
Date of Service May 28, 2023 Assessment & Plan (1) Seizure: (2) Coronary artery disease: (3) Anxiety: (4) Schizoaffective disorder: (5) COPD (chronic obstructive pulmonary disease): (6) Rhabdomyolysis: (7) Electrolyte disturbance: Plan Mr. Noyola is a 63-year-old male that presented to the ED via EMS after he was found down after a ground-level fall at home. Patient significant other returned home after patient was well all day and was found down. When EMS arrived patient was found to have a 15 to 20-second seizure that occurred twice with similar time. Patient has known isolated seizure in 2017. No new medications and no issues with medication compliance noted by family. CXR negative, head CT negative for ICH and SDH. No midline shift noted. In the ED patient went into SVT and received adenosine 6 mg followed by 12 mg. Patient is admitted to telemetry for management of following condition: Alcohol use disorder Alcohol withdrawal Seizure: Possible Wernicke's encephalopathy Reported history of drinking hard cider/whiskey/beer from family. AST elevated Prior to presentation, 2 witnessed seizures lasting 15 to 20 seconds; noted flexion in bilateral elbows History of two isolated seizure 2017 after starting Chantix; no new medication or issues with med compliance Head CTno acute abnormality Started on Keppra in the ED; continue for now. Currently on empiric antibiotics Continue on high-dose thiamine for now for possible Wernicke's encephalopathy's. As per neurology, recommend to correct metabolic abnormality, hold statin, continue Keppra 500 twice daily until electrolytes are corrected. MRI brain w ithout contrast if encephalopathy does not clear with electrolytes. Routine EEG. Electrolyte disturbance Hypocalcemia Hypomagnesemia Hypokalemia Labs reviewed; potassium2.4, calcium6.3, ionized calcium 0.85 Magnesium1.7, phosphate1.7 Continue to replete potassium and calcium. EKG daily to monitor QTc Rhabdomyolysis: Acute uncontrolled CK up trended to 7900, downtrending now. Currently on IV fluids with D5 NS with KCl at 100 cc/h Monitor urine output Creatinine within normal limits COVID-19: asymptomatic incidental finding on biofire Chest x-ray personally reviewed; no infiltrates present. Initially started on dexamethasone; discontinued for now. Demand ischemia EKG on admission personally reviewed; sinus tachycardia with ST depression in lateral leads. High sensitive troponin increased to 153 and down trended Echocardiogram shows EF of 55 to 60%; grade 1 diastolic dysfunction SVT: Acute uncontrolled Patient went into SVT in the ED; received adenosine 6 mg followed by 12 mg; currently sinus tachycardia mid teens Continue to monitor on telemetry CAD: HTN: Chronic stable Takes atenolol, aspirin 162 mg, and lisinopril; continue Anxiety: Schizoaffective disorder: Takes dextro-amphetamine; hold for now Disposition: PCP: Dr. Jones CODE STATUS: Full code VTE prophylaxis: Teds and SCDs for now Discussed with significant other at bedside on May 27, 2023. Answered questions/queries. Time spent evaluating patient, direct bedside care, chart review, placing orders, interpretation of diagnostic studies, discussion with consultants, patient, and family members, as well as other required patient management activities is 60 minutes Please note the above document was generated using voice recognition software. It may contain grammatical, syntax or spelling errors. Any formal questions or concerns about the content, text or information contained within the body of this dictation should be directly addressed to the provider for clarification Admission and Anticipated Discharge Date Admission Date: May 26, 2023 Subjective Patient seen and examined at bedside. Patient is combative intermittently; has been requiring IV Ativan. Vital stable; continues to saturate well in room air. Review of Systems Review of Systems: Unobtainable due to mental health condition Physical Exam Physical Exam: Constitutional: Agitated; not oriented to time place or person. Respiratory: Bilateral vesicular breath sound Cardiovascular: RRR, no murmur, no edema Vessels: no JVD or carotid bruit Chest: normal inspection of chest Abdomen: normal bowel sounds, soft, nontender, no hepatosplenomegaly Skin: no rashes, warm and dry normal turgor Neurologic: Agitated, does not follow any commands. Grossly moves all extremities Results & Data Results & Data Vital Signs (Past 12 Hours) Vital Signs Temp Pulse Pulse Resp BP BP BP 05/28/23 10:53 36.6 C 86 20 147/84 H 05/28/23 08:00 82 05/28/23 08:00 05/28/23 07:07 36.6 C 86 18 134/80 05/28/23 04:03 36.4 C L 83 20 135/66 05/28/23 02:53 36.6 C 89 18 150/78 H Pulse Ox O2 Del Method 05/28/23 10:53 96 Room Air 05/28/23 08:00 05/28/23 08:00 Room Air 05/28/23 07:07 96 Room Air 05/28/23 04:03 94 Room Air 05/28/23 02:53 93 Room Air Laboratory Results Laboratory Results WBC 12.39 K/ul (4.8-10.8) H 05/28/23 06:49 RBC 3.53 M/uL (4.70-6.10) L 05/28/23 06:49 Hgb 10.5 g/dl (14.0-18.0) L 05/28/23 06:49 Hct 29.2 % (42.0-52.0) L 05/28/23 06:49 MCV 82.7 fL (80.0-100.0) 05/28/23 06:49 MCH 29.7 pg (25.0-34.0) 05/28/23 06:49 MCHC 36.0 g/dL (32.0-36.0) 05/28/23 06:49 RDW Std Deviation 37.1 fL (36.4-46.3) 05/28/23 06:49 RDW Coeff of Dana 12.2 % (11.5-14.5) 05/28/23 06:49 Plt Count 203 K/uL (130-400) 05/28/23 06:49 MPV 11.6 fL (9.4-12.4) 05/28/23 06:49 Immature Gran % (Auto) 0.5 % 05/28/23 06:49 Neut % (Auto) 86.7 % 05/28/23 06:49 Lymph % (Auto) 9.2 % 05/28/23 06:49 Carbon % (Auto) 2.8 % 05/28/23 06:49 Eos % (Auto) 0.6 % 05/28/23 06:49 Baso % (Auto) 0.2 % 05/28/23 06:49 Neut # (Auto) 10.74 K/uL (1.40-6.50) H 05/28/23 06:49 Lymph # (Auto) 1.14 K/uL (1.20-3.40) L 05/28/23 06:49 Carbon # (Auto) 0.35 K/uL (0.11-0.59) 05/28/23 06:49 Eos # (Auto) 0.08 K/uL (0.00-0.50) 05/28/23 06:49 Baso # (Auto) 0.02 K/uL (0.00-0.20) 05/28/23 06:49 Immature Gran # (Auto) 0.06 K/uL (0.01-0.20) 05/28/23 06:49 PT 23.0 Seconds (9.0-12.0) H 05/28/23 06:49 INR 2.2 (0.9-1.1) H 05/28/23 06:49 VBG pH 7.48 (7.36-7.41) H 05/26/23 15:43 VBG pCO2 41 mmHg (38-50) 05/26/23 15:43 VBG pO2 < 20 mmHg 05/26/23 15:43 VBG HCO3 31 mmol/L 05/26/23 15:43 VBG O2 Saturation < 60.0 % 05/26/23 15:43 VBG Base Excess 6.4 mEq/L 05/26/23 15:43 Sodium 141 mmol/L (136-145) 05/28/23 06:49 Potassium 2.4 mmol/L (3.5-5.1) L* 05/28/23 06:49 Chloride 104 mmol/L (98-107) 05/28/23 06:49 Carbon Dioxide 31 mmol/L (21-32) 05/28/23 06:49 Anion Gap 6 (3-11) 05/28/23 06:49 BUN 5 mg/dl (6-23) L 05/28/23 06:49 Creatinine 0.50 mg/dl (0.6-1.4) L 05/28/23 06:49 Est Cr Clr Drug Dosing 148.0 ml/min 05/28/23 06:49 Est GFR ( Amer) 134.6 ml/min 05/28/23 06:49 Est GFR (Non-Af Amer) 116.1 ml/min 05/28/23 06:49 BUN/Creatinine Ratio 10.0 (10-20) 05/28/23 06:49 Glucose 151 mg/dl (70-99(Fasting)) H 05/28/23 06:49 POC Glucose 123 mg/dl (70-99) H 05/26/23 19:10 Lactate 1.4 mmol/L (0.4-2.0) 05/26/23 17:39 Calcium 6.3 mg/dl (8.6-10.3) L 05/28/23 06:49 Ionized Calcium 0.85 mmol/L (1.12-1.32) L 05/28/23 06:49 Phosphorus 1.7 mg/dl (2.5-4.9) L D 05/28/23 06:49 Magnesium 1.7 mg/dl (1.7-2.4) 05/28/23 06:49 Total Bilirubin 0.9 mg/dl (0.2-1.0) 05/28/23 06:49 Direct Bilirubin 0.6 mg/dl (0-0.2) H 05/27/23 06:50 AST 76 U/L (13-39) H 05/28/23 06:49 ALT 40 U/L (7-52) 05/28/23 06:49 Alkaline Phosphatase 85 U/L (34-104) 05/28/23 06:49 Ammonia 29.0 umol/L (18-72) 05/27/23 00:30 Total Creatine Kinase 3092 U/L (30-223) H 05/28/23 06:49 Troponin I High Sens 138.2 pg/ml (0-20) H* 05/27/23 06:50 Total Protein 5.5 gm/dl (6.0-8.3) L 05/28/23 06:49 Albumin 2.8 gm/dl (3.4-5.0) L 05/28/23 06:49 Globulin 2.7 gm/dl (2.5-4.0) 05/28/23 06:49 Albumin/Globulin Ratio 1.0 (0.9-2) 05/28/23 06:49 Procalcitonin 1.05 ng/ml (0-0.5) H 05/26/23 15:15 Urine Color Dark Yellow 05/26/23 23:57 Urine Appearance Cloudy (Clear) A 05/26/23 23:57 Urine pH 6.5 (4.5-7.5) 05/26/23 23:57 Ur Specific [place] 1.024 (1.000-1.030) 05/26/23 23:57 Urine Protein 2+ (Negative) H 05/26/23 23:57 Urine Glucose (UA) Trace (Negative) H 05/26/23 23:57 Urine Ketones 2+ (Negative) H 05/26/23 23:57 Urine Blood 3+ (Negative) H 05/26/23 23:57 Urine Nitrite Negative (Negative) 05/26/23 23:57 Urine Bilirubin 1+ (Negative) H 05/26/23 23:57 Urine Urobilinogen Negative (Negative) 05/26/23 23:57 Ur Leukocyte Esterase Trace (Negative) H 05/26/23 23:57 Urine WBC (Auto) 10-30 /hpf (0-5) H 05/26/23 23:57 Urine RBC (Auto) 5-10 /hpf (0-4) H 05/26/23 23:57 U Hyaline Cast (Auto) >30 /lpf (0-5) H 05/26/23 23:57 U Epithel Cells (Auto) >30 /lpf (0-5) H 05/26/23 23:57 Urine Bacteria (Auto) Negative (Negative) 05/26/23 23:57 Ur Renal Epithelial Cell 0-5 /lpf (0-5) 05/26/23 23:57 Granular Casts >30 /lpf (0) H 05/26/23 23:57 Urine Mucus Present (None Prsent) A 05/26/23 17:00 Salicylates < 3.0 mg/dl (3.0-30) L 05/26/23 15:15 Urine Opiates Screen Neg (Neg) 05/26/23 23:57 Ur Methadone, Qual Neg (Neg) 05/26/23 23:57 Acetaminophen < 3 ug/ml (10-30) L 05/26/23 15:15 Urine Barbiturates Neg (Neg) 05/26/23 23:57 Ur Phencyclidine (PCP) Neg (Neg) 05/26/23 23:57 U Amphetamin/Meth Scrn Pos (Neg) H 05/26/23 23:57 MDMA (Ecstasy) Screen Neg (Neg) 05/26/23 23:57 U Benzodiazepines Scrn Pos (Neg) H 05/26/23 23:57 Ur Cocaine Metabolite Neg (Neg) 05/26/23 23:57 U Marijuana (THC) Screen Neg (Neg) 05/26/23 23:57 Ethyl Alcohol mg/dL < 10.0 mg/dl (<10.0) 05/26/23 15:43 Adenovirus (PCR) Not Detected (NotDetected) 05/26/23 17:20 B. pertussis DNA (PCR) Not Detected (NotDetected) 05/26/23 17:20 B.parapertussis DNA PCR Not Detected (NotDetected) 05/26/23 17:20 C. pneumoniae DNA (PCR) Not Detected (NotDetected) 05/26/23 17:20 Coronavirus OC43 (PCR) Not Detected (NotDetected) 05/26/23 17:20 Coronavirus HKU1 (PCR) Not Detected (NotDetected) 05/26/23 17:20 Coronavirus 229E (PCR) Not Detected (NotDetected) 05/26/23 17:20 SARS-CoV-2 (PCR) DETECTED (NotDetected) A* 05/26/23 17:20 Coronavirus NL63 (PCR) Not Detected (NotDetected) 05/26/23 17:20 Human Metapneumovir PCR Not Detected (NotDetected) 05/26/23 17:20 Influenza Type A (PCR) Not Detected (NotDetected) 05/26/23 17:20 Influenza Type B (PCR) Not Detected (NotDetected) 05/26/23 17:20 M. pneumoniae (PCR) Not Detected (NotDetected) 05/26/23 17:20 Parainfluenza 1 (PCR) Not Detected (NotDetected) 05/26/23 17:20 Parainfluenza 2 (PCR) Not Detected (NotDetected) 05/26/23 17:20 Parainfluenza 3 (PCR) Not Detected (NotDetected) 05/26/23 17:20 Parainfluenza 4 (PCR) Not Detected (NotDetected) 05/26/23 17:20 RSV (PCR) Not Detected (NotDetected) 05/26/23 17:20 Entero/Rhino (PCR) Not Detected (NotDetected) 05/26/23 17:[address] 05/26/23 15:02 CT head/brain wo con CLINICAL HISTORY: Fall on thinners Technique: Contiguous axial CT images of the head were acquired from the base of the skull to the vertex without intravenous contrast administration. Images were viewed in brain, subdural and bone windows. Automated dose lowering techniques and/or adjustment according to patient size were utilized for this exam. Comparison: Comparison is made to CT head 01/15/2022 Findings: Areas of decreased attenuation are present in the periventricular and subcortical white matter bilaterally consistent with small vessel ischemic disease. Generalized cerebral atrophy with commensurate enlargement of the ventricles, sulci, and cisterns is also present. There is no acute intracranial hemorrhage or evidence of acute territorial infarction. No shift of the midline structures, mass effect, or extra-axial abnormalities are shown. Atherosclerotic calcifications are present in the intracranial segments of the internal carotid arteries. Right maxillary mucous retention cyst is seen. The orbits appear normal. There are no acute fractures of the calvaria or scalp swelling. Impression: No acute intracranial hemorrhage, no evidence of acute territorial infarction or other acute intracranial disease process. ACT 112: Negative or not required by law. Electronically signed by: Rich Quarles M.D. 05/26/2023 3:28 PM Chest X-Ray 05/27/23 01:21 XR chest 1V portable CLINICAL HISTORY: tachypnea TECHNIQUE: Single frontal radiograph of the chest was obtained. Comparison: Comparison is made to chest radiograph 05/26/2023 FINDINGS: No lines and tubes are seen. Calcified aortic knob is seen. The lungs are clear. No evidence of pleural effusion or pneumothorax. IMPRESSION: No acute chest disease. ACT 112: Negative or not required by law. Electronically signed by: Rich Quarles M.D. 05/27/2023 7:54 AM
[2023-05-28] MEDS: HEPARIN SOD 5,000 UNIT/0.5 ML VIAL SQ SCH ×2 (16:42→20:59)
[2023-05-28 19:12] LABS: BUN Creatinine Ratio 7.8 (10-20); Calcium 6.8 mg/dl (8.6-10.3); Creatinine Clr Calc Pharmacy 145.1 ml/min; Est GFR (African American) 133.5 ml/min; Est GFR (Non-African American) 115.2 ml/min; Potassium 3.1 mmol/L (3.5-5.1)
[2023-05-28] MEDS: GABAPENTIN 600 MG TAB PO SCH (20:35)
[2023-05-29] MEDS: D5NSS + 20MEQ KCL 20 MEQ/1,000 ML BAG IV SCH ×3 (02:39→23:41)
[2023-05-29] MEDS: LORazepam 2 MG in SYRINGE 1 ML IV PRN (02:46)
[2023-05-29] MEDS: diazePAM 5 MG TABLET PO SCH ×5 (03:49→21:00)
[2023-05-29] MEDS: THIAMINE HCL 200 MG in SODIUM CHLORIDE 0.9% 50 ML IV SCH ×3 (04:16→20:11)
[2023-05-29] MEDS: HEPARIN SOD 5,000 UNIT/0.5 ML VIAL SQ SCH ×3 (05:42→21:06)
--- NOTE | 2023-05-29 05:57 | Electrocardiogram Report ---
Test Reason : Blood Pressure : / mmHG Vent. Rate : 143 BPM Atrial Rate : 000 BPM P-R Int : 000 ms QRS Dur : 076 ms QT Int : 352 ms P-R-T Axes : 000 061 070 degrees QTc Int : 543 ms Poor data quality, interpretation may be adversely affected Possible Sinus tachycardia Abnormal ECG When compared with ECG of 16-FEB-2022 06:19, Vent. rate has increased BY [address] now depressed in Inferior leads ST now depressed in Anterolateral leads T wave inversion now evident in Anterolateral leads Confirmed by Kofi Hogan ([id number]) on 05/29/2023 5:56:32 AM Referred By: REFERRED SELF Confirmed By:Kofi Hogan
--- NOTE | 2023-05-29 05:59 | Electrocardiogram Report ---
Test Reason : Blood Pressure : / mmHG Vent. Rate : 136 BPM Atrial Rate : 136 BPM P-R Int : 112 ms QRS Dur : 084 ms QT Int : 376 ms P-R-T Axes : 000 045 069 degrees QTc Int : 565 ms Sinus tachycardia Abnormal ECG When compared with ECG of 26-MAY-2023 15:17, No significant change was found Confirmed by Koif Hogan ([id number]) on 05/29/2023 5:58:29 AM Referred By: REFERRED SELF Confirmed By:Kofi Hogan
[2023-05-29] MEDS: levETIRAcetam 500 MG in SODIUM CHLOR 0.9% MINI-B 100 ML IV SCH ×2 (06:03→18:27)
--- NOTE | 2023-05-29 06:03 | Electrocardiogram Report ---
Test Reason : Blood Pressure : / mmHG Vent. Rate : 100 BPM Atrial Rate : 100 BPM P-R Int : 136 ms QRS Dur : 090 ms QT Int : 392 ms P-R-T Axes : 079 043 057 degrees QTc Int : 505 ms Normal sinus rhythm Nonspecific ST and T wave abnormality Prolonged QT Abnormal ECG When compared with ECG of 26-MAY-2023 15:47, No significant change was found Confirmed by Kofi Hogan ([id number]) on 05/29/2023 6:02:58 AM Referred By: REFERRED SELF Confirmed By:Kofi Hogan
--- NOTE | 2023-05-29 06:18 | Electrocardiogram Report ---
Test Reason : Blood Pressure : / mmHG Vent. Rate : 101 BPM Atrial Rate : 101 BPM P-R Int : 112 ms QRS Dur : 088 ms QT Int : 368 ms P-R-T Axes : 000 023 031 degrees QTc Int : 477 ms Sinus tachycardia Nonspecific ST abnormality When compared with ECG of 26-MAY-2023 17:27, QT has shortened Confirmed by Kofi Hogan ([id number]) on 05/29/2023 6:17:58 AM Referred By: REFERRED SELF Confirmed By:Kofi Hogan
--- NOTE | 2023-05-29 07:30 | Electrocardiogram Report ---
Test Reason : Blood Pressure : / mmHG Vent. Rate : 078 BPM Atrial Rate : 078 BPM P-R Int : 150 ms QRS Dur : 090 ms QT Int : 432 ms P-R-T Axes : 073 040 061 degrees QTc Int : 492 ms Normal sinus rhythm Nonspecific T wave abnormality Prolonged QT Abnormal ECG When compared with ECG of 27-MAY-2023 05:24, No significant change was found Confirmed by Kofi Hogan ([id number]) on 05/29/2023 7:30:23 AM Referred By: REFERRED SELF Confirmed By:Kofi Hogan
[2023-05-29 08:24] LABS: Basophils # (auto) 0.01 K/uL (0.00-0.20); Basophils % (auto) 0.1 %; Eosinophils # (auto) 0.07 K/uL (0.00-0.50); Eosinophils % (auto) 0.7 %; Hematocrit (blood only) 32.7 % (42.0-52.0); Hemoglobin 11.6 g/dl (14.0-18.0); Immature Granulocytes # (auto) 0.07 K/uL (0.01-0.20); Immature Granulocytes % (auto) 0.7 %; Lymphocytes # (auto) 1.39 K/uL (1.20-3.40); Lymphocytes % (auto) 14.5 %; Mean Corpuscular Hemoglobin 29.7 pg (25.0-34.0); Mean Corpuscular Hgb Conc 35.5 g/dL (32.0-36.0); Mean Corpuscular Volume 83.6 fL (80.0-100.0); Mean Platelet Volume 11.1 fL (9.4-12.4); Monocytes # (auto) 0.24 K/uL (0.11-0.59); Monocytes % (auto) 2.5 %; Neutrophils % (auto) 81.5 %; Platelet Count 200 K/uL (130-400); RDW Coefficient of Variation 12.1 % (11.5-14.5); RDW Standard Deviation 36.5 fL (36.4-46.3); Red Blood Count 3.91 M/uL (4.70-6.10); White Blood Count 9.58 K/ul (4.8-10.8)
[2023-05-29 08:47] LABS: INR 2.1 (0.9-1.1); Prothrombin Time 22.3 Seconds (9.0-12.0)
[2023-05-29 08:53] LABS: Calcium 6.7 mg/dl (8.6-10.3); Creatinine Clr Calc Pharmacy 149.3 ml/min; Est GFR (African American) 134.6 ml/min; Est GFR (Non-African American) 116.1 ml/min; Magnesium 1.3 mg/dl (1.7-2.4); Phosphorus 3.2 mg/dl (2.5-4.9); Potassium 3.2 mmol/L (3.5-5.1)
[2023-05-29] MEDS: GABAPENTIN 300 MG CAP PO SCH ×2 (09:00→13:10)
[2023-05-29] MEDS: lisinopril 2.5 MG TAB PO SCH (09:00)
[2023-05-29] MEDS: ASPIRIN 81 MG ECTAB PO SCH (09:01)
[2023-05-29] MEDS: FLUTICASONE PROPIONATE NA SPR 16 GM BTL SCH (09:01)
[2023-05-29] MEDS: POTASSIUM CHLORIDE / WTR 10 MEQ/100 ML PLCT IV SCH ×4 (09:01→12:54)
[2023-05-29] MEDS: MULTIVITAMIN TAB PO SCH (09:02)
[2023-05-29] MEDS: guaiFENesin 600 MG TABCR PO SCH ×2 (09:02→21:34)
[2023-05-29] MEDS ORDERED: STAT IV/IM STA (11:57)
[2023-05-29] MEDS ORDERED: PHYTONADIONE 5 MG TAB PO STA (12:47)
[2023-05-29] MEDS: CALCIUM GLUCONATE 10% 1,000 MG in SODIUM CHLOR 0.9% MINI-B 50 ML IV SCH ×2 (12:49→13:08)
[2023-05-29] MEDS: MAGNESIUM SULFATE / D5W 1 GM/100 ML BAG IV SCH ×4 (12:50→18:09)
--- NOTE | 2023-05-29 12:50 | Hospitalist Progress Note ---
Date of Service May 29, 2023 Assessment & Plan (1) Seizure: (2) Coronary artery disease: (3) Anxiety: (4) Schizoaffective disorder: (5) COPD (chronic obstructive pulmonary disease): (6) Rhabdomyolysis: (7) Electrolyte disturbance: Plan Mr. Noyola is a 63-year-old male that presented to the ED via EMS after he was found down after a ground-level fall at home. Patient significant other returned home after patient was well all day and was found down. When EMS arrived patient was found to have a 15 to 20-second seizure that occurred twice with similar time. Patient has known isolated seizure in 2017. No new medications and no issues with medication compliance noted by family. CXR negative, head CT negative for ICH and SDH. No midline shift noted. In the ED patient went into SVT and received adenosine 6 mg followed by 12 mg. Patient is admitted to telemetry for management of following condition: Alcohol use disorder Alcohol withdrawal Seizure: Possible Wernicke's encephalopathy Reported history of drinking hard cider/whiskey/beer from family. AST/ALT ratio elevated Prior to presentation, 2 witnessed seizures lasting 15 to 20 seconds; noted flexion in bilateral elbows History of two isolated seizure 2017 after starting Chantix; no new medication or issues with med compliance Head CTno acute abnormality Started on Keppra in the ED; continue for now. Continue on high-dose thiamine for now for possible Wernicke's encephalopathy's. As per neurology, recommend to correct metabolic abnormality, hold statin, continue Keppra 500 twice daily until electrolytes are corrected. MRI brain without contrast ordered as patient continues to be encephalopathic Electrolyte disturbance Hypocalcemia Hypomagnesemia Hypokalemia Labs reviewed; potassium3.2, calcium6.7, Magnesium1. 3, phosphate3.2 Rhabdomyolysis: Acute uncontrolled CK up trended to 7900, downtrending now. Currently on IV fluids with D5 NS with KCl at 100 cc/h Monitor urine output Creatinine within normal limits COVID-19: asymptomatic incidental finding on biofire Chest x-ray personally reviewed; no infiltrates present. Initially started on dexamethasone; discontinued for now. Demand ischemia EKG on admission personally reviewed; sinus tachycardia with ST depression in lateral leads. High sensitive troponin increased to 153 and down trended Echocardiogram shows EF of 55 to 60%; grade 1 diastolic dysfunction SVT: Acute uncontrolled Patient went into SVT in the ED; received adenosine 6 mg followed by 12 mg; currently sinus tachycardia mid teens Continue to monitor on telemetry CAD: HTN: Chronic stable Takes atenolol, aspirin 162 mg, and lisinopril; continue Anxiety: Schizoaffective disorder: Takes dextro-amphetamine; hold for now Disposition: PCP: Dr. Jones CODE STATUS: Full code VTE prophylaxis: Teds and SCDs for now Discussed with significant other at bedside on May 27, 2023. Answered questions/queries. Time spent evaluating patient, direct bedside care, chart review, placing orders, interpretation of diagnostic studies, discussion with consultants, patient, and family members, as well as other required patient management activities is 60 minutes Please note the above document was generated using voice recognition software. It may contain grammatical, syntax or spelling errors. Any formal questions or concerns about the content, text or information contained within the body of this dictation should be directly addressed to the provider for clarification Admission and Anticipated Discharge Date Admission Date: May 26, 2023 Subjective Patient seen and examined at bedside. the periods Rest of agitation have improved. Is not requiring IV Ativan as frequently as before. Review of Systems Review of Systems: All systems reviewed & are unremarkable except as noted in Subjective Physical Exam Physical Exam: Constitutional: Appears calm; not in distress. Mumbles; none comprehensible. Respiratory: Bilateral vesicular breath sound Cardiovascular: RRR, no murmur, no edema Vessels: no JVD or carotid bruit Chest: normal inspection of chest Abdomen: normal bowel sounds, soft, nontender, no hepatosplenomegaly Skin: no rashes, warm and dry normal turgor Neurologic: Appears calm; not in distress. Mumbles; none comprehensible. Results & Data Results & Data Vital Signs (Past 12 Hours) Vital Signs Temp Pulse Pulse Resp BP BP Pulse Ox 05/29/23 10:00 05/29/23 08:00 83 05/29/23 07:41 36.7 C 83 20 149/85 H 98 05/29/23 02:26 36.4 C L 94 H 24 174/73 H 100 O2 Del Method 05/29/23 10:00 Room Air 05/29/23 08:00 05/29/23 07:41 Room Air 05/29/23 02:26 Room Air Laboratory Results Laboratory Results WBC 9.58 K/ul (4.8-10.8) 05/29/23 08:06 RBC 3.91 M/uL (4.70-6.10) L 05/29/23 08:06 Hgb 11.6 g/dl (14.0-18.0) L 05/29/23 08:06 Hct 32.7 % (42.0-52.0) L 05/29/23 08:06 MCV 83.6 fL (80.0-100.0) 05/29/23 08:06 MCH 29.7 pg (25.0-34.0) 05/29/23 08:06 MCHC 35.5 g/dL (32.0-36.0) 05/29/23 08:06 RDW Std Deviation 36.5 fL (36.4-46.3) 05/29/23 08:06 RDW Coeff of [place] 12.1 % (11.5-14.5) 05/29/23 08:06 Plt Count 200 K/uL (130-400) 05/29/23 08:06 MPV 11.1 fL (9.4-12.4) 05/29/23 08:06 Immature Gran % (Auto) 0.7 % 05/29/23 08:06 Neut % (Auto) 81.5 % 05/29/23 08:06 Lymph % (Auto) 14.5 % 05/29/23 08:06 [place] % (Auto) 2.5 % 05/29/23 08:06 Eos % (Auto) 0.7 % 05/29/23 08:06 Baso % (Auto) 0.1 % 05/29/23 08:06 Neut # (Auto) 7.80 K/uL (1.40-6.50) H 05/29/23 08:06 Lymph # (Auto) 1.39 K/uL (1.20-3.40) 05/29/23 08:06 [place] # (Auto) 0.24 K/uL (0.11-0.59) 05/29/23 08:06 Eos # (Auto) 0.07 K/uL (0.00-0.50) 05/29/23 08:06 Baso # (Auto) 0.01 K/uL (0.00-0.20) 05/29/23 08:06 Immature Gran # (Auto) 0.07 K/uL (0.01-0.20) 05/29/23 08:06 PT 22.3 Seconds (9.0-12.0) H 05/29/23 08:06 INR 2.1 (0.9-1.1) H 05/29/23 08:06 VBG pH 7.48 (7.36-7.41) H 05/26/23 15:43 VBG pCO2 41 mmHg (38-50) 05/26/23 15:43 VBG pO2 < 20 mmHg 05/26/23 15:43 VBG HCO3 31 mmol/L 05/26/23 15:43 VBG O2 Saturation < 60.0 % 05/26/23 15:43 VBG Base Excess 6.4 mEq/L 05/26/23 15:43 Sodium 141 mmol/L (136-145) 05/29/23 08:06 Potassium 3.2 mmol/L (3.5-5.1) L 05/29/23 08:06 Chloride 101 mmol/L (98-107) 05/29/23 08:06 Carbon Dioxide 35 mmol/L (21-32) H 05/29/23 08:06 Anion Gap 5 (3-11) 05/29/23 08:06 BUN 2 mg/dl (6-23) L 05/29/23 08:06 Creatinine 0.50 mg/dl (0.6-1.4) L 05/29/23 08:06 Est Cr Clr Drug Dosing 149.3 ml/min 05/29/23 08:06 Est GFR ( Amer) 134.6 ml/min 05/29/23 08:06 Est GFR (Non-Af Amer) 116.1 ml/min 05/29/23 08:06 BUN/Creatinine Ratio 4.0 (10-20) L 05/29/23 08:06 Glucose 133 mg/dl (70-99(Fasting)) H 05/29/23 08:06 POC Glucose 123 mg/dl (70-99) H 05/26/23 19:10 Lactate 1.4 mmol/L (0.4-2.0) 05/26/23 17:39 Calcium 6.7 mg/dl (8.6-10.3) L 05/29/23 08:06 Ionized Calcium 0.85 mmol/L (1.12-1.32) L 05/28/23 06:49 Phosphorus 3.2 mg/dl (2.5-4.9) D 05/29/23 08:06 Magnesium 1.3 mg/dl (1.7-2.4) L 05/29/23 08:06 Total Bilirubin 0.9 mg/dl (0.2-1.0) 05/28/23 06:49 Direct Bilirubin 0.6 mg/dl (0-0.2) H 05/27/23 06:50 AST 76 U/L (13-39) H 05/28/23 06:49 ALT 40 U/L (7-52) 05/28/23 06:49 Alkaline Phosphatase 85 U/L (34-104) 05/28/23 06:49 Ammonia 29.0 umol/L (18-72) 05/27/23 00:30 Total Creatine Kinase 931 U/L (30-223) H 05/29/23 08:06 Troponin I High Sens 138.2 pg/ml (0-20) H* 05/27/23 06:50 Total Protein 5.5 gm/dl (6.0-8.3) L 05/28/23 06:49 Albumin 2.8 gm/dl (3.4-5.0) L 05/28/23 06:49 Globulin 2.7 gm/dl (2.5-4.0) 05/28/23 06:49 Albumin/Globulin Ratio 1.0 (0.9-2) 05/28/23 06:49 Procalcitonin 1.05 ng/ml (0-0.5) H 05/26/23 15:15 Urine Color Dark Yellow 05/26/23 23:57 Urine Appearance Cloudy (Clear) A 05/26/23 23:57 Urine pH 6.5 (4.5-7.5) 05/26/23 23:57 Ur Specific [place] 1.024 (1.000-1.030) 05/26/23 23:57 Urine Protein 2+ (Negative) H 05/26/23 23:57 Urine Glucose (UA) Trace (Negative) H 05/26/23 23:57 Urine Ketones 2+ (Negative) H 05/26/23 23:57 Urine Blood 3+ (Negative) H 05/26/23 23:57 Urine Nitrite Negative (Negative) 05/26/23 23:57 Urine Bilirubin 1+ (Negative) H 05/26/23 23:57 Urine Urobilinogen Negative (Negative) 05/26/23 23:57 Ur Leukocyte Esterase Trace (Negative) H 05/26/23 23:57 Urine WBC (Auto) 10-30 /hpf (0-5) H 05/26/23 23:57 Urine RBC (Auto) 5-10 /hpf (0-4) H 05/26/23 23:57 U Hyaline Cast (Auto) >30 /lpf (0-5) H 05/26/23 23:57 U Epithel Cells (Auto) >30 /lpf (0-5) H 05/26/23 23:57 Urine Bacteria (Auto) Negative (Negative) 05/26/23 23:57 Ur Renal Epithelial Cell 0-5 /lpf (0-5) 05/26/23 23:57 Granular Casts >30 /lpf (0) H 05/26/23 23:57 Urine Mucus Present (None Prsent) A 05/26/23 17:00 Salicylates < 3.0 mg/dl (3.0-30) L 05/26/23 15:15 Urine Opiates Screen Neg (Neg) 05/26/23 23:57 Ur Methadone, Qual Neg (Neg) 05/26/23 23:57 Acetaminophen < 3 ug/ml (10-30) L 05/26/23 15:15 Urine Barbiturates Neg (Neg) 05/26/23 23:57 Ur Phencyclidine (PCP) Neg (Neg) 05/26/23 23:57 U Amphetamin/Meth Scrn Pos (Neg) H 05/26/23 23:57 MDMA (Ecstasy) Screen Neg (Neg) 05/26/23 23:57 U Benzodiazepines Scrn Pos (Neg) H 05/26/23 23:57 Ur Cocaine Metabolite Neg (Neg) 05/26/23 23:57 U Marijuana (THC) Screen Neg (Neg) 05/26/23 23:57 Ethyl Alcohol mg/dL < 10.0 mg/dl (<10.0) 05/26/23 15:43 Adenovirus (PCR) Not Detected (NotDetected) 05/26/23 17:20 B. pertussis DNA (PCR) Not Detected (NotDetected) 05/26/23 17:20 B.parapertussis DNA PCR Not Detected (NotDetected) 05/26/23 17:20 C. pneumoniae DNA (PCR) Not Detected (NotDetected) 05/26/23 17:20 Coronavirus OC43 (PCR) Not Detected (NotDetected) 05/26/23 17:20 Coronavirus HKU1 (PCR) Not Detected (NotDetected) 05/26/23 17:20 Coronavirus 229E (PCR) Not Detected (NotDetected) 05/26/23 17:20 SARS-CoV-2 (PCR) DETECTED (NotDetected) A* 05/26/23 17:20 Coronavirus NL63 (PCR) Not Detected (NotDetected) 05/26/23 17:20 Human Metapneumovir PCR Not Detected (NotDetected) 05/26/23 17:20 Influenza Type A (PCR) Not Detected (NotDetected) 05/26/23 17:20 Influenza Type B (PCR) Not Detected (NotDetected) 05/26/23 17:20 M. pneumoniae (PCR) Not Detected (NotDetected) 05/26/23 17:20 Parainfluenza 1 (PCR) Not Detected (NotDetected) 05/26/23 17:20 Parainfluenza 2 (PCR) Not Detected (NotDetected) 05/26/23 17:20 Parainfluenza 3 (PCR) Not Detected (NotDetected) 05/26/23 17:20 Parainfluenza 4 (PCR) Not Detected (NotDetected) 05/26/23 17:20 RSV (PCR) Not Detected (NotDetected) 05/26/23 17:20 Entero/Rhino (PCR) Not Detected (NotDetected) 05/26/23 17:[address] 05/26/23 15:02 CT head/brain wo con CLINICAL HISTORY: Fall on thinners Technique: Contiguous axial CT images of the head were acquired from the base of the skull to the vertex without intravenous contrast administration. Images were viewed in brain, subdural and bone windows. Automated dose lowering techniques and/or adjustment according to patient size were utilized for this exam. Comparison: Comparison is made to CT head 01/15/2022 Findings: Areas of decreased attenuation are present in the periventricular and subcortical white matter bilaterally consistent with small vessel ischemic disease. Generalized cerebral atrophy with commensurate enlargement of the ventricles, sulci, and cisterns is also present. There is no acute intracranial hemorrhage or evidence of acute territorial infarction. No shift of the midline structures, mass effect, or extra-axial abnormalities are shown. Atherosclerotic calcifications are present in the intracranial segments of the internal carotid arteries. Right maxillary mucous retention cyst is seen. The orbits appear normal. There are no acute fractures of the calvaria or scalp swelling. Impression: No acute intracranial hemorrhage, no evidence of acute territorial infarction or other acute intracranial disease process. ACT 112: Negative or not required by law. Electronically signed by: Rich Quarles M.D. 05/26/2023 3:28 PM Chest X-Ray 05/27/23 01:21 XR chest 1V portable CLINICAL HISTORY: tachypnea TECHNIQUE: Single frontal radiograph of the chest was obtained. Comparison: Comparison is made to chest radiograph 05/26/2023 FINDINGS: No lines and tubes are seen. Calcified aortic knob is seen. The lungs are clear. No evidence of pleural effusion or pneumothorax. IMPRESSION: No acute chest disease. ACT 112: Negative or not required by law. Electronically signed by: Rich Quarles M.D. 05/27/2023 7:54 AM
[2023-05-29 15:02] LABS: 7-Aminoclonaz, Confirm NEGATIVE ng/mL (<25); Amphetamine Urine, Confirm 7470 ng/mL (<250); Hydro-Alp Ur, GC/MS NEGATIVE ng/mL (<25); Hydroxyethylflurazepam, Conf NEGATIVE ng/mL (<50); Hydroxymidazolam Ur, GC/MS 1300 ng/mL (<50); Hydroxytriazolam NEGATIVE ng/mL (<50); Lorazepam, Ur GC/MS 286 ng/mL (<50); Methamphetamine, Ur Confirm NEGATIVE ng/mL (<250); Nordiazepam, Confirm NEGATIVE ng/mL (<50); Oxazepam Ur, GC/MS NEGATIVE ng/mL (<50); Temazepam, Confirm NEGATIVE ng/mL (<50)
[2023-05-29] MEDS: GABAPENTIN 600 MG TAB PO SCH (21:35)
[2023-05-30] MEDS: MICONAZOLE NITRATE 2% CR 30 GM TUBE EXT SCH ×3 (00:22→21:14)
[2023-05-30] MEDS: diazePAM 5 MG TABLET PO SCH (03:00)
[2023-05-30] MEDS: THIAMINE HCL 200 MG in SODIUM CHLORIDE 0.9% 50 ML IV SCH ×3 (03:19→21:14)
[2023-05-30] MEDS: ACETAMINOPHEN 325 MG TAB PO PRN ×2 (04:54→23:44)
[2023-05-30] MEDS: HEPARIN SOD 5,000 UNIT/0.5 ML VIAL SQ SCH ×3 (05:00→21:15)
[2023-05-30] MEDS: levETIRAcetam 500 MG in SODIUM CHLOR 0.9% MINI-B 100 ML IV SCH ×2 (06:00→18:01)
[2023-05-30 08:21] LABS: Basophils # (auto) 0.02 K/uL (0.00-0.20); Basophils % (auto) 0.2 %; Eosinophils # (auto) 0.07 K/uL (0.00-0.50); Eosinophils % (auto) 0.8 %; Hematocrit (blood only) 32.3 % (42.0-52.0); Hemoglobin 11.9 g/dl (14.0-18.0); Immature Granulocytes # (auto) 0.06 K/uL (0.01-0.20); Immature Granulocytes % (auto) 0.7 %; Lymphocytes # (auto) 1.15 K/uL (1.20-3.40); Lymphocytes % (auto) 13.5 %; Mean Corpuscular Hemoglobin 30.2 pg (25.0-34.0); Mean Corpuscular Hgb Conc 36.8 g/dL (32.0-36.0); Mean Platelet Volume 10.5 fL (9.4-12.4); Monocytes # (auto) 0.23 K/uL (0.11-0.59); Monocytes % (auto) 2.7 %; Neutrophils % (auto) 82.1 %; Platelet Count 243 K/uL (130-400); RDW Coefficient of Variation 11.8 % (11.5-14.5); RDW Standard Deviation 35.4 fL (36.4-46.3); Red Blood Count 3.94 M/uL (4.70-6.10); White Blood Count 8.53 K/ul (4.8-10.8)
[2023-05-30 08:35] LABS: BUN Creatinine Ratio 5.1 (10-20); Creatinine Clr Calc Pharmacy 192.2 ml/min; Est GFR (African American) 149.1 ml/min; Est GFR (Non-African American) 128.6 ml/min; Magnesium 1.7 mg/dl (1.7-2.4); Phosphorus 2.4 mg/dl (2.5-4.9); Potassium 2.9 mmol/L (3.5-5.1)
[2023-05-30 08:49] LABS: INR 1.2 (0.9-1.1); Prothrombin Time 12.7 Seconds (9.0-12.0)
[2023-05-30] MEDS: guaiFENesin 600 MG TABCR PO SCH ×2 (09:19→21:14)
[2023-05-30] MEDS: MULTIVITAMIN TAB PO SCH (09:19)
[2023-05-30] MEDS: ASPIRIN 81 MG ECTAB PO SCH (09:19)
[2023-05-30] MEDS: lisinopril 2.5 MG TAB PO SCH (09:19)
[2023-05-30] MEDS: FLUTICASONE PROPIONATE NA SPR 16 GM BTL SCH (09:19)
[2023-05-30] MEDS: GABAPENTIN 300 MG CAP PO SCH ×2 (09:19→14:11)
[2023-05-30] MEDS: D5NSS + 20MEQ KCL 20 MEQ/1,000 ML BAG IV SCH ×2 (09:39→18:01)
[2023-05-30] MEDS ORDERED: ERGOCALCIFEROL 50,000 UNITS 1250 MCG CAP PO ONE (09:56)
[2023-05-30] MEDS: POTASSIUM CHLORIDE / WTR 10 MEQ/100 ML PLCT IV SCH ×8 (10:16→16:22)
--- NOTE | 2023-05-30 13:53 | Hospitalist Progress Note ---
Date of Service May 30, 2023 Assessment & Plan (1) Seizure: (2) Coronary artery disease: (3) Anxiety: (4) Schizoaffective disorder: (5) COPD (chronic obstructive pulmonary disease): (6) Rhabdomyolysis: (7) Electrolyte disturbance: Plan Mr. Noyola is a 63-year-old male that presented to the ED via EMS after he was found down after a ground-level fall at home. Patient significant other returned home after patient was well all day and was found down. When EMS arrived patient was found to have a 15 to 20-second seizure that occurred twice with similar time. Patient has known isolated seizure in 2017. No new medications and no issues with medication compliance noted by family. CXR negative, head CT negative for ICH and SDH. No midline shift noted. In the ED patient went into SVT and received adenosine 6 mg followed by 12 mg. Patient is admitted to telemetry for management of following condition: Alcohol use disorder Alcohol withdrawal Seizure: Possible Wernicke's encephalopathy Reported history of drinking hard cider/whiskey/beer from family. AST/ALT ratio elevated Prior to presentation, 2 witnessed seizures lasting 15 to 20 seconds; noted flexion in bilateral elbows History of two isolated seizure 2017 after starting Chantix; no new medication or issues with med compliance Head CTno acute abnormality Started on Keppra in the ED; continue for now. Continue on high-dose thiamine for now for possible Wernicke's encephalopathy's. As per neurology, recommend to correct metabolic abnormality, hold statin, continue Keppra 500 twice daily until electrolytes are corrected. MRI brain without contrast ordered; will follow-up on results. Electrolyte disturbance Vitamin D deficiency Hypocalcemia Hypomagnesemia Hypokalemia Electrolyte replacement ordered. Started on vitamin D supplement 50,000 units every week for 6 weeks. Rhabdomyolysis: Acute uncontrolled CK up trended to 7900, down trended Currently on IV fluids with D5 NS with KCl at 100 cc/h Monitor urine output Creatinine within normal limits COVID-19: asymptomatic incidental finding on biofire Chest x-ray personally reviewed; no infiltrates present. Initially started on dexamethasone; discontinued for now. Demand ischemia EKG on admission personally reviewed; sinus tachycardia with ST depression in lateral leads. High sensitive troponin increased to 153 and down trended Echocardiogram shows EF of 55 to 60%; grade 1 diastolic dysfunction SVT: Acute uncontrolled Patient went into SVT in the ED; received adenosine 6 mg followed by 12 mg; currently sinus tachycardia mid teens Continue to monitor on telemetry CAD: HTN: Chronic stable Takes atenolol, aspirin 162 mg, and lisinopril; continue Anxiety: Schizoaffective disorder: Takes dextro-amphetamine; hold for now Disposition: PCP: Dr. Jones CODE STATUS: Full code VTE prophylaxis: Heparin Discussed with significant other at bedside on May 27, 2023. Answered questions/queries. Time spent evaluating patient, direct bedside care, chart review, placing orders, interpretation of diagnostic studies, discussion with consultants, patient, and family members, as well as other required patient management activities is 60 minutes Please note the above document was generated using voice recognition software. It may contain grammatical, syntax or spelling errors. Any formal questions or concerns about the content, text or information contained within the body of this dictation should be directly addressed to the provider for clarification Admission and Anticipated Discharge Date Admission Date: May 26, 2023 Subjective Patient seen and examined at bedside. Patient is more awake and cooperative today. He is not agitated. He is oriented to self, date and place. Review of Systems Review of Systems: All systems reviewed & are unremarkable except as noted in Subjective Physical Exam Physical Exam: Constitutional: Appears calm; not in distress. Comfortable. Oriented to self and place. Respiratory: Bilateral vesicular breath sound Cardiovascular: RRR, no murmur, no edema Vessels: no JVD or carotid bruit Chest: normal inspection of chest Abdomen: normal bowel sounds, soft, nontender, no hepatosplenomegaly Skin: no rashes, warm and dry normal turgor Neurologic: Movement on the left hand is decreased. No other gross neurological abnormality otherwise. Results & Data Results & Data Vital Signs (Past 12 Hours) Vital Signs Temp Pulse Pulse Pulse Resp BP BP 05/30/23 11:11 36.4 C L 87 16 150/74 H 05/30/23 08:00 63 05/30/23 06:55 36.7 C 76 16 176/91 H 05/30/23 03:13 36.7 C 90 20 155/81 H Pulse Ox O2 Del Method 05/30/23 11:11 99 Room Air 05/30/23 08:00 05/30/23 06:55 97 Room Air 05/30/23 03:13 98 Room Air Laboratory Results Laboratory Results WBC 8.53 K/ul (4.8-10.8) 05/30/23 07:59 RBC 3.94 M/uL (4.70-6.10) L 05/30/23 07:59 Hgb 11.9 g/dl (14.0-18.0) L 05/30/23 07:59 Hct 32.3 % (42.0-52.0) L 05/30/23 07:59 MCV 82.0 fL (80.0-100.0) 05/30/23 07:59 MCH 30.2 pg (25.0-34.0) 05/30/23 07:59 MCHC 36.8 g/dL (32.0-36.0) H 05/30/23 07:59 RDW Std Deviation 35.4 fL (36.4-46.3) L 05/30/23 07:59 RDW Coeff of Dana 11.8 % (11.5-14.5) 05/30/23 07:59 Plt Count 243 K/uL (130-400) 05/30/23 07:59 MPV 10.5 fL (9.4-12.4) 05/30/23 07:59 Immature Gran % (Auto) 0.7 % 05/30/23 07:59 Neut % (Auto) 82.1 % 05/30/23 07:59 Lymph % (Auto) 13.5 % 05/30/23 07:59 [place] % (Auto) 2.7 % 05/30/23 07:59 Eos % (Auto) 0.8 % 05/30/23 07:59 Baso % (Auto) 0.2 % 05/30/23 07:59 Neut # (Auto) 7.00 K/uL (1.40-6.50) H 05/30/23 07:59 Lymph # (Auto) 1.15 K/uL (1.20-3.40) L 05/30/23 07:59 [place] # (Auto) 0.23 K/uL (0.11-0.59) 05/30/23 07:59 Eos # (Auto) 0.07 K/uL (0.00-0.50) 05/30/23 07:59 Baso # (Auto) 0.02 K/uL (0.00-0.20) 05/30/23 07:59 Immature Gran # (Auto) 0.06 K/uL (0.01-0.20) 05/30/23 07:59 PT 12.7 Seconds (9.0-12.0) H 05/30/23 07:59 INR 1.2 (0.9-1.1) H 05/30/23 07:59 VBG pH 7.48 (7.36-7.41) H 05/26/23 15:43 VBG pCO2 41 mmHg (38-50) 05/26/23 15:43 VBG pO2 < 20 mmHg 05/26/23 15:43 VBG HCO3 31 mmol/L 05/26/23 15:43 VBG O2 Saturation < 60.0 % 05/26/23 15:43 VBG Base Excess 6.4 mEq/L 05/26/23 15:43 Sodium 137 mmol/L (136-145) 05/30/23 07:59 Potassium 2.9 mmol/L (3.5-5.1) L 05/30/23 07:59 Chloride 101 mmol/L (98-107) 05/30/23 07:59 Carbon Dioxide 30 mmol/L (21-32) 05/30/23 07:59 Anion Gap 6 (3-11) 05/30/23 07:59 BUN 2 mg/dl (6-23) L 05/30/23 07:59 Creatinine 0.39 mg/dl (0.6-1.4) L 05/30/23 07:59 Est Cr Clr Drug Dosing 192.2 ml/min 05/30/23 07:59 Est GFR ( Amer) 149.1 ml/min 05/30/23 07:59 Est GFR (Non-Af Amer) 128.6 ml/min 05/30/23 07:59 BUN/Creatinine Ratio 5.1 (10-20) L 05/30/23 07:59 Glucose 153 mg/dl (70-99(Fasting)) H 05/30/23 07:59 POC Glucose 123 mg/dl (70-99) H 05/26/23 19:10 Lactate 1.4 mmol/L (0.4-2.0) 05/26/23 17:39 Calcium 7.0 mg/dl (8.6-10.3) L 05/30/23 07:59 Ionized Calcium 0.85 mmol/L (1.12-1.32) L 05/28/23 06:49 Phosphorus 2.4 mg/dl (2.5-4.9) L 05/30/23 07:59 Magnesium 1.7 mg/dl (1.7-2.4) 05/30/23 07:59 Total Bilirubin 0.9 mg/dl (0.2-1.0) 05/28/23 06:49 Direct Bilirubin 0.6 mg/dl (0-0.2) H 05/27/23 06:50 AST 76 U/L (13-39) H 05/28/23 06:49 ALT 40 U/L (7-52) 05/28/23 06:49 Alkaline Phosphatase 85 U/L (34-104) 05/28/23 06:49 Ammonia 29.0 umol/L (18-72) 05/27/23 00:30 Total Creatine Kinase 931 U/L (30-223) H 05/29/23 08:06 Troponin I High Sens 138.2 pg/ml (0-20) H* 05/27/23 06:50 Total Protein 5.5 gm/dl (6.0-8.3) L 05/28/23 06:49 Albumin 2.8 gm/dl (3.4-5.0) L 05/28/23 06:49 Globulin 2.7 gm/dl (2.5-4.0) 05/28/23 06:49 Albumin/Globulin Ratio 1.0 (0.9-2) 05/28/23 06:49 25-OH Vitamin D Total < 7.0 ng/ml (30-100) L 05/30/23 07:59 Procalcitonin 1.05 ng/ml (0-0.5) H 05/26/23 15:15 Urine Color Dark Yellow 05/26/23 23:57 Urine Appearance Cloudy (Clear) A 05/26/23 23:57 Urine pH 6.5 (4.5-7.5) 05/26/23 23:57 Ur Specific [place] 1.024 (1.000-1.030) 05/26/23 23:57 Urine Protein 2+ (Negative) H 05/26/23 23:57 Urine Glucose (UA) Trace (Negative) H 05/26/23 23:57 Urine Ketones 2+ (Negative) H 05/26/23 23:57 Urine Blood 3+ (Negative) H 05/26/23 23:57 Urine Nitrite Negative (Negative) 05/26/23 23:57 Urine Bilirubin 1+ (Negative) H 05/26/23 23:57 Urine Urobilinogen Negative (Negative) 05/26/23 23:57 Ur Leukocyte Esterase Trace (Negative) H 05/26/23 23:57 Urine WBC (Auto) 10-30 /hpf (0-5) H 05/26/23 23:57 Urine RBC (Auto) 5-10 /hpf (0-4) H 05/26/23 23:57 U Hyaline Cast (Auto) >30 /lpf (0-5) H 05/26/23 23:57 U Epithel Cells (Auto) >30 /lpf (0-5) H 05/26/23 23:57 Urine Bacteria (Auto) Negative (Negative) 05/26/23 23:57 Ur Renal Epithelial Cell 0-5 /lpf (0-5) 05/26/23 23:57 Granular Casts >30 /lpf (0) H 05/26/23 23:57 Urine Mucus Present (None Prsent) A 05/26/23 17:00 Salicylates < 3.0 mg/dl (3.0-30) L 05/26/23 15:15 Urine Opiates Screen Neg (Neg) 05/26/23 23:57 Ur Methadone, Qual Neg (Neg) 05/26/23 23:57 Acetaminophen < 3 ug/ml (10-30) L 05/26/23 15:15 Urine Barbiturates Neg (Neg) 05/26/23 23:57 Ur Phencyclidine (PCP) Neg (Neg) 05/26/23 23:57 U Amphetamines Confirm 7470 ng/mL (<250) H 05/26/23 23:57 U Amphetamin/Meth Scrn Pos (Neg) H 05/26/23 23:57 U Methamphetamin Confrm NEGATIVE ng/mL (<250) 05/26/23 23:57 MDMA (Ecstasy) Screen Neg (Neg) 05/26/23 23:57 U OH-Alprazolam Confrm NEGATIVE ng/mL (<25) 05/26/23 23:57 U Benzodiazepines Scrn Pos (Neg) H 05/26/23 23:57 7-Amino Clonazepam NEGATIVE ng/mL (<25) 05/26/23 23:57 Ur Nordiazepam Confirm NEGATIVE ng/mL (<50) 05/26/23 23:57 U OH-ethylflurazepam NEGATIVE ng/mL (<50) 05/26/23 23:57 U Lorazepam Cnf GC/MS 286 ng/mL (<50) H 05/26/23 23:57 U Oxazepam Confm GC/MS NEGATIVE ng/mL (<50) 05/26/23 23:57 Ur Temazepam Confirm NEGATIVE ng/mL (<50) 05/26/23 23:57 U OH-Triazolam Confirm NEGATIVE ng/mL (<50) 05/26/23 23:57 U OH-Midazolam Confirm 1300 ng/mL (<50) H 05/26/23 23:57 Ur Cocaine Metabolite Neg (Neg) 05/26/23 23:57 U Marijuana (THC) Screen Neg (Neg) 05/26/23 23:57 Drug Screen Comment SEE NOTE 05/26/23 23:57 Ethyl Alcohol mg/dL < 10.0 mg/dl (<10.0) 05/26/23 15:43 Adenovirus (PCR) Not Detected (NotDetected) 05/26/23 17:20 B. pertussis DNA (PCR) Not Detected (NotDetected) 05/26/23 17:20 B.parapertussis DNA PCR Not Detected (NotDetected) 05/26/23 17:20 C. pneumoniae DNA (PCR) Not Detected (NotDetected) 05/26/23 17:20 Coronavirus OC43 (PCR) Not Detected (NotDetected) 05/26/23 17:20 Coronavirus HKU1 (PCR) Not Detected (NotDetected) 05/26/23 17:20 Coronavirus 229E (PCR) Not Detected (NotDetected) 05/26/23 17:20 SARS-CoV-2 (PCR) DETECTED (NotDetected) A* 05/26/23 17:20 Coronavirus NL63 (PCR) Not Detected (NotDetected) 05/26/23 17:20 Human Metapneumovir PCR Not Detected (NotDetected) 05/26/23 17:20 Influenza Type A (PCR) Not Detected (NotDetected) 05/26/23 17:20 Influenza Type B (PCR) Not Detected (NotDetected) 05/26/23 17:20 M. pneumoniae (PCR) Not Detected (NotDetected) 05/26/23 17:20 Parainfluenza 1 (PCR) Not Detected (NotDetected) 05/26/23 17:20 Parainfluenza 2 (PCR) Not Detected (NotDetected) 05/26/23 17:20 Parainfluenza 3 (PCR) Not Detected (NotDetected) 05/26/23 17:20 Parainfluenza 4 (PCR) Not Detected (NotDetected) 05/26/23 17:20 RSV (PCR) Not Detected (NotDetected) 05/26/23 17:20 Entero/Rhino (PCR) Not Detected (NotDetected) 05/26/23 17:[address] 05/26/23 15:02 CT head/brain wo con CLINICAL HISTORY: Fall on thinners Technique: Contiguous axial CT images of the head were acquired from the base of the skull to the vertex without intravenous contrast administration. Images were viewed in brain, subdural and bone windows. Automated dose lowering techniques and/or adjustment according to patient size were utilized for this exam. Comparison: Comparison is made to CT head 01/15/2022 Findings: Areas of decreased attenuation are present in the periventricular and subcortical white matter bilaterally consistent with small vessel ischemic disease. Generalized cerebral atrophy with commensurate enlargement of the ventricles, sulci, and cisterns is also present. There is no acute intracranial hemorrhage or evidence of acute territorial infarction. No shift of the midline structures, mass effect, or extra-axial abnormalities are shown. Atherosclerotic calcifications are present in the intracranial segments of the internal carotid arteries. Right maxillary mucous retention cyst is seen. The orbits appear normal. There are no acute fractures of the calvaria or scalp swelling. Impression: No acute intracranial hemorrhage, no evidence of acute territorial infarction or other acute intracranial disease process. ACT 112: Negative or not required by law. Electronically signed by: Rich Quarles M.D. 05/26/2023 3:28 PM Chest X-Ray 05/27/23 01:21 XR chest 1V portable CLINICAL HISTORY: tachypnea TECHNIQUE: Single frontal radiograph of the chest was obtained. Comparison: Comparison is made to chest radiograph 05/26/2023 FINDINGS: No lines and tubes are seen. Calcified aortic knob is seen. The lungs are clear. No evidence of pleural effusion or pneumothorax. IMPRESSION: No acute chest disease. ACT 112: Negative or not required by law. Electronically signed by: Rich Quarles M.D. 05/27/2023 7:54 AM
[2023-05-30] MEDS: MAGNESIUM CHLORIDE W/CALCIUM 64MG DELAYED REL TAB PO SCH ×2 (15:20→21:14)
[2023-05-30] MEDS: GABAPENTIN 600 MG TAB PO SCH (21:16)
[2023-05-31] MEDS: D5NSS + 20MEQ KCL 20 MEQ/1,000 ML BAG IV SCH ×2 (04:22→13:24)
[2023-05-31] MEDS: THIAMINE HCL 200 MG in SODIUM CHLORIDE 0.9% 50 ML IV SCH ×2 (04:22→11:52)
[2023-05-31] MEDS: HEPARIN SOD 5,000 UNIT/0.5 ML VIAL SQ SCH ×3 (05:29→20:02)
[2023-05-31] MEDS: levETIRAcetam 500 MG in SODIUM CHLOR 0.9% MINI-B 100 ML IV SCH (05:29)
[2023-05-31] MEDS: ASPIRIN 81 MG ECTAB PO SCH (07:44)
[2023-05-31] MEDS: GABAPENTIN 300 MG CAP PO SCH ×2 (07:44→14:18)
[2023-05-31] MEDS: FLUTICASONE PROPIONATE NA SPR 16 GM BTL SCH (07:45)
[2023-05-31] MEDS: lisinopril 2.5 MG TAB PO SCH (07:45)
[2023-05-31] MEDS: guaiFENesin 600 MG TABCR PO SCH (07:45)
[2023-05-31] MEDS: MAGNESIUM CHLORIDE W/CALCIUM 64MG DELAYED REL TAB PO SCH ×3 (07:46→20:02)
[2023-05-31] MEDS: MICONAZOLE NITRATE 2% CR 30 GM TUBE EXT SCH ×2 (07:46→20:01)
[2023-05-31] MEDS: MULTIVITAMIN TAB PO SCH (07:47)
[2023-05-31] MEDS: ACETAMINOPHEN 325 MG TAB PO PRN (07:51)
[2023-05-31 08:12] LABS: Basophils # (auto) 0.04 K/uL (0.00-0.20); Basophils % (auto) 0.5 %; Eosinophils # (auto) 0.09 K/uL (0.00-0.50); Eosinophils % (auto) 1.1 %; Hematocrit (blood only) 34.3 % (42.0-52.0); Hemoglobin 12.2 g/dl (14.0-18.0); Immature Granulocytes # (auto) 0.17 K/uL (0.01-0.20); Immature Granulocytes % (auto) 2.2 %; Lymphocytes # (auto) 1.51 K/uL (1.20-3.40); Lymphocytes % (auto) 19.1 %; Mean Corpuscular Hgb Conc 35.6 g/dL (32.0-36.0); Mean Corpuscular Volume 84.5 fL (80.0-100.0); Mean Platelet Volume 10.5 fL (9.4-12.4); Monocytes # (auto) 0.33 K/uL (0.11-0.59); Monocytes % (auto) 4.2 %; Neutrophils # (auto) 5.76 K/uL (1.40-6.50); Neutrophils % (auto) 72.9 %; Platelet Count 302 K/uL (130-400); RDW Coefficient of Variation 12.1 % (11.5-14.5); RDW Standard Deviation 36.8 fL (36.4-46.3); Red Blood Count 4.06 M/uL (4.70-6.10)
[2023-05-31 08:42] LABS: Prothrombin Time 11.4 Seconds (9.0-12.0)
[2023-05-31 09:09] LABS: BUN Creatinine Ratio 3.8 (10-20); Creatinine Clr Calc Pharmacy 144.2 ml/min; Est GFR (African American) 132.5 ml/min; Est GFR (Non-African American) 114.3 ml/min; Magnesium 1.6 mg/dl (1.7-2.4); Phosphorus 2.1 mg/dl (2.5-4.9); Potassium 4.5 mmol/L (3.5-5.1)
--- NOTE | 2023-05-31 13:02 | Hospitalist Progress Note ---
Date of Service May 31, 2023 Assessment & Plan (1) Seizure: (2) Coronary artery disease: (3) Anxiety: (4) Schizoaffective disorder: (5) COPD (chronic obstructive pulmonary disease): (6) Rhabdomyolysis: (7) Electrolyte disturbance: Plan Mr. Noyola is a 63-year-old male that presented to the ED via EMS after he was found down after a ground-level fall at home. Patient significant other returned home after patient was well all day and was found down. When EMS arrived patient was found to have a 15 to 20-second seizure that occurred twice with similar time. Patient has known isolated seizure in 2017. No new medications and no issues with medication compliance noted by family. CXR negative, head CT negative for ICH and SDH. No midline shift noted. In the ED patient went into SVT and received adenosine 6 mg followed by 12 mg. Patient is admitted to telemetry for management of following condition: Alcohol use disorder Alcohol withdrawal Seizure: Possible Wernicke's encephalopathy Reported history of drinking hard cider/whiskey/beer from family. AST/ALT ratio elevated on admission Prior to presentation, 2 witnessed seizures lasting 15 to 20 seconds; noted flexion in bilateral elbows History of two isolated seizure 2017 after starting Chantix; no new medication or issues with med compliance Head CTno acute abnormality Started on Keppra in the ED; Patient mentation improved; he still has weakness on his left arm. Will decrease thiamine 200 mg IV to once a day for 2 more day. Patient received high-dose thiamine(200 mg every 8 hours) for 4 days Will await MRI brain without contrast. Will stop Keppra as per recommendation by neurology if MRI brain did not show any significant abnormality. Electrolyte disturbance Vitamin D deficiency Hypocalcemia Hypomagnesemia Hypokalemia Electrolyte replacement ordered. Started on vitamin D supplement 50,000 units every week for 6 weeks. On oral potassium, magnesium, phosphate supplements. Patient was also given vitamin K for elevated PT/INR; repeat PT/INR is normalized. Rhabdomyolysis: Acute uncontrolled CK up trended to 7900, down trended Was given IV fluids CK down trended. COVID-19: asymptomatic incidental finding on biofire Chest x-ray personally reviewed; no infiltrates present. Initially started on dexamethasone; discontinued Continue to monitor oxygen saturation Demand ischemia EKG on admission personally reviewed; sinus tachycardia with ST depression in lateral leads. High sensitive troponin increased to 153 and down trended Echocardiogram shows EF of 55 to 60%; grade 1 diastolic dysfunction SVT: Patient went into SVT in the ED; received adenosine 6 mg followed by 12 mg; currently sinus tachycardia mid teens Continue to monitor on telemetry CAD: HTN: Chronic stable Takes atenolol, aspirin 162 mg, and lisinopril; continue Anxiety: Schizoaffective disorder: Takes dextro-amphetamine; hold for now Disposition: PCP: Dr. Jones CODE STATUS: Full code VTE prophylaxis: Heparin Discussed with significant other at bedside on May 27, 2023. Answered questions/queries. Dispositionawaiting MRI brain without contrast to rule out a stroke. PT OT evaluation pending. Will likely need discharge to rehab after resolution of medical issues. Time spent evaluating patient, direct bedside care, chart review, placing orders, interpretation of diagnostic studies, discussion with consultants, patient, and family members, as well as other required patient management activities is 60 minutes Please note the above document was generated using voice recognition software. It may contain grammatical, syntax or spelling errors. Any formal questions or concerns about the content, text or information contained within the body of this dictation should be directly addressed to the provider for clarification Admission and Anticipated Discharge Date Admission Date: May 26, 2023 Subjective Patient more awake today and interactive. He reports weakness on his left arm. His left leg seems to be weaker as well Reports generalized pain and weakness. Review of Systems Review of Systems: All systems reviewed & are unremarkable except as noted in Subjective Physical Exam Physical Exam: Constitutional: Appears calm; not in distress. Comfortable. Oriented to self and place. Respiratory: Bilateral vesicular breath sound Cardiovascular: RRR, no murmur, no edema Vessels: no JVD or carotid bruit Chest: normal inspection of chest Abdomen: normal bowel sounds, soft, nontender, no hepatosplenomegaly Skin: no rashes, warm and dry normal turgor Neurologic: Movement on the left hand is decreased. No other gross neurological abnormality otherwise. Results & Data Results & Data Vital Signs (Past 12 Hours) Vital Signs Temp Pulse Resp BP BP Pulse Ox O2 Del Method 05/31/23 10:58 36.4 C L 82 18 173/94 H 99 Room Air 05/31/23 07:39 36.7 C 95 H 20 183/96 H 99 Room Air 05/31/23 02:51 36.6 C 80 20 159/88 H 96 Room Air Laboratory Results Laboratory Results WBC 7.90 K/ul (4.8-10.8) 05/31/23 07:40 RBC 4.06 M/uL (4.70-6.10) L 05/31/23 07:40 Hgb 12.2 g/dl (14.0-18.0) L 05/31/23 07:40 Hct 34.3 % (42.0-52.0) L 05/31/23 07:40 MCV 84.5 fL (80.0-100.0) 05/31/23 07:40 MCH 30.0 pg (25.0-34.0) 05/31/23 07:40 MCHC 35.6 g/dL (32.0-36.0) 05/31/23 07:40 RDW Std Deviation 36.8 fL (36.4-46.3) 05/31/23 07:40 RDW Coeff of Dana 12.1 % (11.5-14.5) 05/31/23 07:40 Plt Count 302 K/uL (130-400) 05/31/23 07:40 MPV 10.5 fL (9.4-12.4) 05/31/23 07:40 Immature Gran % (Auto) 2.2 % 05/31/23 07:40 Neut % (Auto) 72.9 % 05/31/23 07:40 Lymph % (Auto) 19.1 % 05/31/23 07:40 [place] % (Auto) 4.2 % 05/31/23 07:40 Eos % (Auto) 1.1 % 05/31/23 07:40 Baso % (Auto) 0.5 % 05/31/23 07:40 Neut # (Auto) 5.76 K/uL (1.40-6.50) 05/31/23 07:40 Lymph # (Auto) 1.51 K/uL (1.20-3.40) 05/31/23 07:40 [place] # (Auto) 0.33 K/uL (0.11-0.59) 05/31/23 07:40 Eos # (Auto) 0.09 K/uL (0.00-0.50) 05/31/23 07:40 Baso # (Auto) 0.04 K/uL (0.00-0.20) 05/31/23 07:40 Immature Gran # (Auto) 0.17 K/uL (0.01-0.20) 05/31/23 07:40 PT 11.4 Seconds (9.0-12.0) 05/31/23 07:40 INR 1.0 (0.9-1.1) 05/31/23 07:40 VBG pH 7.48 (7.36-7.41) H 05/26/23 15:43 VBG pCO2 41 mmHg (38-50) 05/26/23 15:43 VBG pO2 < 20 mmHg 05/26/23 15:43 VBG HCO3 31 mmol/L 05/26/23 15:43 VBG O2 Saturation < 60.0 % 05/26/23 15:43 VBG Base Excess 6.4 mEq/L 05/26/23 15:43 Sodium 139 mmol/L (136-145) 05/31/23 07:40 Potassium 4.5 mmol/L (3.5-5.1) D 05/31/23 07:40 Chloride 105 mmol/L (98-107) 05/31/23 07:40 Carbon Dioxide 29 mmol/L (21-32) 05/31/23 07:40 Anion Gap 5 (3-11) 05/31/23 07:40 BUN 2 mg/dl (6-23) L 05/31/23 07:40 Creatinine 0.52 mg/dl (0.6-1.4) L 05/31/23 07:40 Est Cr Clr Drug Dosing 144.2 ml/min 05/31/23 07:40 Est GFR ( Amer) 132.5 ml/min 05/31/23 07:40 Est GFR (Non-Af Amer) 114.3 ml/min 05/31/23 07:40 BUN/Creatinine Ratio 3.8 (10-20) L 05/31/23 07:40 Glucose 145 mg/dl (70-99(Fasting)) H 05/31/23 07:40 POC Glucose 123 mg/dl (70-99) H 05/26/23 19:10 Lactate 1.4 mmol/L (0.4-2.0) 05/26/23 17:39 Calcium 8.0 mg/dl (8.6-10.3) L 05/31/23 07:40 Ionized Calcium 0.85 mmol/L (1.12-1.32) L 05/28/23 06:49 Phosphorus 2.1 mg/dl (2.5-4.9) L 05/31/23 07:40 Magnesium 1.6 mg/dl (1.7-2.4) L 05/31/23 07:40 Total Bilirubin 0.9 mg/dl (0.2-1.0) 05/28/23 06:49 Direct Bilirubin 0.6 mg/dl (0-0.2) H 05/27/23 06:50 AST 76 U/L (13-39) H 05/28/23 06:49 ALT 40 U/L (7-52) 05/28/23 06:49 Alkaline Phosphatase 85 U/L (34-104) 05/28/23 06:49 Ammonia 29.0 umol/L (18-72) 05/27/23 00:30 Total Creatine Kinase 931 U/L (30-223) H 05/29/23 08:06 Troponin I High Sens 138.2 pg/ml (0-20) H* 05/27/23 06:50 Total Protein 5.5 gm/dl (6.0-8.3) L 05/28/23 06:49 Albumin 2.8 gm/dl (3.4-5.0) L 05/28/23 06:49 Globulin 2.7 gm/dl (2.5-4.0) 05/28/23 06:49 Albumin/Globulin Ratio 1.0 (0.9-2) 05/28/23 06:49 25-OH Vitamin D Total < 7.0 ng/ml (30-100) L 05/30/23 07:59 Procalcitonin 1.05 ng/ml (0-0.5) H 05/26/23 15:15 Urine Color Dark Yellow 05/26/23 23:57 Urine Appearance Cloudy (Clear) A 05/26/23 23:57 Urine pH 6.5 (4.5-7.5) 05/26/23 23:57 Ur Specific [place] 1.024 (1.000-1.030) 05/26/23 23:57 Urine Protein 2+ (Negative) H 05/26/23 23:57 Urine Glucose (UA) Trace (Negative) H 05/26/23 23:57 Urine Ketones 2+ (Negative) H 05/26/23 23:57 Urine Blood 3+ (Negative) H 05/26/23 23:57 Urine Nitrite Negative (Negative) 05/26/23 23:57 Urine Bilirubin 1+ (Negative) H 05/26/23 23:57 Urine Urobilinogen Negative (Negative) 05/26/23 23:57 Ur Leukocyte Esterase Trace (Negative) H 05/26/23 23:57 Urine WBC (Auto) 10-30 /hpf (0-5) H 05/26/23 23:57 Urine RBC (Auto) 5-10 /hpf (0-4) H 05/26/23 23:57 U Hyaline Cast (Auto) >30 /lpf (0-5) H 05/26/23 23:57 U Epithel Cells (Auto) >30 /lpf (0-5) H 05/26/23 23:57 Urine Bacteria (Auto) Negative (Negative) 05/26/23 23:57 Ur Renal Epithelial Cell 0-5 /lpf (0-5) 05/26/23 23:57 Granular Casts >30 /lpf (0) H 05/26/23 23:57 Urine Mucus Present (None Prsent) A 05/26/23 17:00 Salicylates < 3.0 mg/dl (3.0-30) L 05/26/23 15:15 Urine Opiates Screen Neg (Neg) 05/26/23 23:57 Ur Methadone, Qual Neg (Neg) 05/26/23 23:57 Acetaminophen < 3 ug/ml (10-30) L 05/26/23 15:15 Urine Barbiturates Neg (Neg) 05/26/23 23:57 Ur Phencyclidine (PCP) Neg (Neg) 05/26/23 23:57 U Amphetamines Confirm 7470 ng/mL (<250) H 05/26/23 23:57 U Amphetamin/Meth Scrn Pos (Neg) H 05/26/23 23:57 U Methamphetamin Confrm NEGATIVE ng/mL (<250) 05/26/23 23:57 MDMA (Ecstasy) Screen Neg (Neg) 05/26/23 23:57 U OH-Alprazolam Confrm NEGATIVE ng/mL (<25) 05/26/23 23:57 U Benzodiazepines Scrn Pos (Neg) H 05/26/23 23:57 7-Amino Clonazepam NEGATIVE ng/mL (<25) 05/26/23 23:57 Ur Nordiazepam Confirm NEGATIVE ng/mL (<50) 05/26/23 23:57 U OH-ethylflurazepam NEGATIVE ng/mL (<50) 05/26/23 23:57 U Lorazepam Cnf GC/MS 286 ng/mL (<50) H 05/26/23 23:57 U Oxazepam Confm GC/MS NEGATIVE ng/mL (<50) 05/26/23 23:57 Ur Temazepam Confirm NEGATIVE ng/mL (<50) 05/26/23 23:57 U OH-Triazolam Confirm NEGATIVE ng/mL (<50) 05/26/23 23:57 U OH-Midazolam Confirm 1300 ng/mL (<50) H 05/26/23 23:57 Ur Cocaine Metabolite Neg (Neg) 05/26/23 23:57 U Marijuana (THC) Screen Neg (Neg) 05/26/23 23:57 Drug Screen Comment SEE NOTE 05/26/23 23:57 Ethyl Alcohol mg/dL < 10.0 mg/dl (<10.0) 05/26/23 15:43 Adenovirus (PCR) Not Detected (NotDetected) 05/26/23 17:20 B. pertussis DNA (PCR) Not Detected (NotDetected) 05/26/23 17:20 B.parapertussis DNA PCR Not Detected (NotDetected) 05/26/23 17:20 C. pneumoniae DNA (PCR) Not Detected (NotDetected) 05/26/23 17:20 Coronavirus OC43 (PCR) Not Detected (NotDetected) 05/26/23 17:20 Coronavirus HKU1 (PCR) Not Detected (NotDetected) 05/26/23 17:20 Coronavirus 229E (PCR) Not Detected (NotDetected) 05/26/23 17:20 SARS-CoV-2 (PCR) DETECTED (NotDetected) A* 05/26/23 17:20 Coronavirus NL63 (PCR) Not Detected (NotDetected) 05/26/23 17:20 Human Metapneumovir PCR Not Detected (NotDetected) 05/26/23 17:20 Influenza Type A (PCR) Not Detected (NotDetected) 05/26/23 17:20 Influenza Type B (PCR) Not Detected (NotDetected) 05/26/23 17:20 M. pneumoniae (PCR) Not Detected (NotDetected) 05/26/23 17:20 Parainfluenza 1 (PCR) Not Detected (NotDetected) 05/26/23 17:20 Parainfluenza 2 (PCR) Not Detected (NotDetected) 05/26/23 17:20 Parainfluenza 3 (PCR) Not Detected (NotDetected) 05/26/23 17:20 Parainfluenza 4 (PCR) Not Detected (NotDetected) 05/26/23 17:20 RSV (PCR) Not Detected (NotDetected) 05/26/23 17:20 Entero/Rhino (PCR) Not Detected (NotDetected) 05/26/23 17:[address] 05/26/23 15:02 CT head/brain wo con CLINICAL HISTORY: Fall on thinners Technique: Contiguous axial CT images of the head were acquired from the base of the skull to the vertex without intravenous contrast administration. Images were viewed in brain, subdural and bone windows. Automated dose lowering techniques and/or adjustment according to patient size were utilized for this exam. Comparison: Comparison is made to CT head 01/15/2022 Findings: Areas of decreased attenuation are present in the periventricular and subcortical white matter bilaterally consistent with small vessel ischemic disease. Generalized cerebral atrophy with commensurate enlargement of the ventricles, sulci, and cisterns is also present. There is no acute intracranial hemorrhage or evidence of acute territorial infarction. No shift of the midline structures, mass effect, or extra-axial abnormalities are shown. Atherosclerotic calcifications are present in the intracranial segments of the internal carotid arteries. Right maxillary mucous retention cyst is seen. The orbits appear normal. There are no acute fractures of the calvaria or scalp swelling. Impression: No acute intracranial hemorrhage, no evidence of acute territorial infarction or other acute intracranial disease process. ACT 112: Negative or not required by law. Electronically signed by: Rich Quarles M.D. 05/26/2023 3:28 PM Chest X-Ray 05/27/23 01:21 XR chest 1V portable CLINICAL HISTORY: tachypnea TECHNIQUE: Single frontal radiograph of the chest was obtained. Comparison: Comparison is made to chest radiograph 05/26/2023 FINDINGS: No lines and tubes are seen. Calcified aortic knob is seen. The lungs are clear. No evidence of pleural effusion or pneumothorax. IMPRESSION: No acute chest disease. ACT 112: Negative or not required by law. Electronically signed by: Rich Quarles M.D. 05/27/2023 7:54 AM
[2023-05-31] MEDS: POTASSIUM CHLORIDE CRTAB 20 MEQ TABCR PO SCH ×2 (14:15→20:01)
[2023-05-31] MEDS: POT PHOSPHATE MONOBASIC W/ SOD TAB PO SCH ×3 (14:16→20:02)
[2023-05-31] MEDS: ALUMINUM/MAGNESIUM SUSP 30 ML UDC PO PRN (19:55)
[2023-05-31] MEDS: MIRTAZAPINE TAB 15 MG TAB PO SCH (20:02)
[2023-05-31] MEDS: levETIRAcetam 500 MG TAB PO SCH (20:02)
[2023-05-31] MEDS: GABAPENTIN 600 MG TAB PO SCH (20:03)
[2023-05-31] MEDS ORDERED: FAMOTIDINE 20 MG in SYRINGE 3 ML IV STA (22:49)
[2023-05-31] MEDS ORDERED: MoRPHine SULFATE 4 MG/ML 1 ML CARP\\VIAL IV STA (22:54)
[2023-06-01] MEDS: HEPARIN SOD 5,000 UNIT/0.5 ML VIAL SQ SCH ×3 (05:26→21:10)
[2023-06-01] MEDS: GABAPENTIN 300 MG CAP PO SCH ×2 (07:34→13:13)
[2023-06-01] MEDS: ATENOLOL 25 MG TABLET PO SCH (07:35)
[2023-06-01] MEDS: ASPIRIN 81 MG ECTAB PO SCH (07:35)
[2023-06-01] MEDS: ATORVASTATIN 40 MG TAB PO SCH (07:35)
[2023-06-01] MEDS: FLUTICASONE PROPIONATE NA SPR 16 GM BTL SCH (07:36)
[2023-06-01] MEDS: levETIRAcetam 500 MG TAB PO SCH ×2 (07:36→21:10)
[2023-06-01] MEDS: lisinopril 2.5 MG TAB PO SCH (07:37)
[2023-06-01] MEDS: MAGNESIUM CHLORIDE W/CALCIUM 64MG DELAYED REL TAB PO SCH ×3 (07:37→21:10)
[2023-06-01] MEDS: MULTIVITAMIN TAB PO SCH (07:38)
[2023-06-01] MEDS: MICONAZOLE NITRATE 2% CR 30 GM TUBE EXT SCH ×2 (07:38→21:10)
[2023-06-01] MEDS: POTASSIUM CHLORIDE CRTAB 20 MEQ TABCR PO SCH ×2 (07:39→21:10)
[2023-06-01] MEDS: POT PHOSPHATE MONOBASIC W/ SOD TAB PO SCH ×4 (07:39→21:43)
[2023-06-01] MEDS ORDERED: MAGNESIUM HYDROXIDE SUSP 30 ML UDC PO ONE (07:42)
[2023-06-01] MEDS: THIAMINE HCL 200 MG in SODIUM CHLORIDE 0.9% 50 ML IV SCH (07:42)
--- NOTE | 2023-06-01 07:46 | Electrocardiogram Report ---
Test Reason : Blood Pressure : / mmHG Vent. Rate : 097 BPM Atrial Rate : 097 BPM P-R Int : 140 ms QRS Dur : 078 ms QT Int : 390 ms P-R-T Axes : 071 050 065 degrees QTc Int : 495 ms Normal sinus rhythm Nonspecific ST abnormality Anterolateral leads Prolonged QT Abnormal ECG When compared with ECG of 28-MAY-2023 06:10, No significant change was found Confirmed by Tyrese Doe ([id number]) on 06/01/2023 7:45:59 AM Referred By: REFERRED SELF Confirmed By:Tyrese Doe
[2023-06-01 08:47] LABS: Basophils # (auto) 0.05 K/uL (0.00-0.20); Basophils % (auto) 0.5 %; Eosinophils # (auto) 0.14 K/uL (0.00-0.50); Eosinophils % (auto) 1.5 %; Hematocrit (blood only) 38.8 % (42.0-52.0); Hemoglobin 13.4 g/dl (14.0-18.0); Immature Granulocytes # (auto) 0.22 K/uL (0.01-0.20); Immature Granulocytes % (auto) 2.3 %; Lymphocytes # (auto) 1.67 K/uL (1.20-3.40); Lymphocytes % (auto) 17.4 %; Mean Corpuscular Hemoglobin 29.8 pg (25.0-34.0); Mean Corpuscular Hgb Conc 34.5 g/dL (32.0-36.0); Mean Corpuscular Volume 86.2 fL (80.0-100.0); Mean Platelet Volume 10.2 fL (9.4-12.4); Monocytes # (auto) 0.51 K/uL (0.11-0.59); Monocytes % (auto) 5.3 %; Neutrophils # (auto) 7.02 K/uL (1.40-6.50); Platelet Count 365 K/uL (130-400); RDW Coefficient of Variation 12.2 % (11.5-14.5); RDW Standard Deviation 38.2 fL (36.4-46.3); White Blood Count 9.61 K/ul (4.8-10.8)
[2023-06-01 09:06] LABS: Prothrombin Time 11.1 Seconds (9.0-12.0)
[2023-06-01 09:12] LABS: BUN Creatinine Ratio 6.3 (10-20); Calcium 9.1 mg/dl (8.6-10.3); Creatinine Clr Calc Pharmacy 113.2 ml/min; Est GFR (African American) 121.6 ml/min; Est GFR (Non-African American) 104.9 ml/min; Magnesium 1.6 mg/dl (1.7-2.4); Phosphorus 3.4 mg/dl (2.5-4.9); Troponin I High Sensitivity 7.7 pg/ml (0-20)
[2023-06-01] MEDS ORDERED: LORazepam 1 MG in SYRINGE 0.5 ML IV PRN (09:54)
--- NOTE | 2023-06-01 14:19 | Hospitalist Progress Note ---
Date of Service June 01, 2023 Assessment & Plan (1) Seizure: (2) Coronary artery disease: (3) Anxiety: (4) Schizoaffective disorder: (5) COPD (chronic obstructive pulmonary disease): (6) Rhabdomyolysis: (7) Electrolyte disturbance: Plan Mr. Noyola is a 63-year-old male that presented to the ED via EMS after he was found down after a ground-level fall at home. Patient significant other returned home after patient was well all day and was found down. When EMS arrived patient was found to have a 15 to 20-second seizure that occurred twice with similar time. Patient has known isolated seizure in 2017. No new medications and no issues with medication compliance noted by family. CXR negative, head CT negative for ICH and SDH. No midline shift noted. In the ED patient went into SVT and received adenosine 6 mg followed by 12 mg. Patient is admitted to telemetry for management of following condition: Alcohol use disorder Alcohol withdrawal Seizure: Possible Wernicke's encephalopathy Reported history of drinking hard cider/whiskey/beer from family. AST/ALT ratio elevated on admission Prior to presentation, 2 witnessed seizures lasting 15 to 20 seconds; noted flexion in bilateral elbows History of two isolated seizure 2017 after starting Chantix; no new medication or issues with med compliance Head CTno acute abnormality Started on Keppra in the ED; Patient mentation improved; no focal gross neurological abnormality. Will decrease thiamine 200 mg IV to once a day for 2 more day. Patient received high-dose thiamine(200 mg every 8 hours) for 4 days Will await MRI brain without contrast. Will try to obtain today with IV Ativan. If unable to do so, will repeat CT head without contrast. Electrolyte disturbance Vitamin D deficiency Hypocalcemia Hypomagnesemia Hypokalemia Electrolyte replacement ordered. Started on vitamin D supplement 50,000 units every week for 6 weeks, 2000 units afterward. On oral potassium, magnesium, phosphate supplements. Patient was also given vitamin K for elevated PT/INR; repeat PT/INR is normalized. Rhabdomyolysis: Acute uncontrolled CK up trended to 7900, down trended Was given IV fluids CK down trended. COVID-19: asymptomatic incidental finding on biofire Chest x-ray personally reviewed; no infiltrates present. Initially started on dexamethasone; discontinued Continue to monitor oxygen saturation Demand ischemia EKG on admission personally reviewed; sinus tachycardia with ST depression in lateral leads. High sensitive troponin increased to 153 and down trended Echocardiogram shows EF of 55 to 60%; grade 1 diastolic dysfunction SVT: Patient went into SVT in the ED; received adenosine 6 mg followed by 12 mg; currently sinus tachycardia mid teens Continue to monitor on telemetry CAD: HTN: Chronic stable Takes atenolol, aspirin 162 mg, and lisinopril; continue Anxiety: Schizoaffective disorder: Takes dextro-amphetamine; hold for now Disposition: PCP: Dr. Jones CODE STATUS: Full code VTE prophylaxis: Heparin Discussed with significant other at bedside on May 27, 2023. Answered questions/queries. Dispositionawaiting MRI brain without contrast. Will need rehab. Case management on board Time spent evaluating patient, direct bedside care, chart review, placing orders, interpretation of diagnostic studies, discussion with consultants, patient, and family members, as well as other required patient management a ctivities is 60 minutes Please note the above document was generated using voice recognition software. It may contain grammatical, syntax or spelling errors. Any formal questions or concerns about the content, text or information contained within the body of this dictation should be directly addressed to the provider for clarification Admission and Anticipated Discharge Date Admission Date: May 26, 2023 Subjective Patient seen and examined at bedside. He is alert oriented to time place and person. Requires reorientation sometimes. Reports fatigue and tiredness. Review of Systems Review of Systems: All systems reviewed & are unremarkable except as noted in Subjective Physical Exam Physical Exam: Constitutional: Appears calm; not in distress. Comfortable. Oriented to self and place. Respiratory: Bilateral vesicular breath sound Cardiovascular: RRR, no murmur, no edema Vessels: no JVD or carotid bruit Chest: normal inspection of chest Abdomen: normal bowel sounds, soft, nontender, no hepatosplenomegaly Skin: no rashes, warm and dry normal turgor Neurologic: Movement on the left hand is decreased. No other gross neurological abnormality otherwise. Results & Data Results & Data Vital Signs (Past 12 Hours) Vital Signs Temp Pulse Resp BP BP Pulse Ox O2 Del Method 06/01/23 11:39 36.9 C 77 20 159/92 H 98 Room Air 06/01/23 07:56 36.3 C L 95 H 18 179/92 H 96 Room Air 06/01/23 03:15 36.7 C 87 16 177/95 H 97 Room Air Laboratory Results Laboratory Results WBC 9.61 K/ul (4.8-10.8) 06/01/23 08:07 RBC 4.50 M/uL (4.70-6.10) L 06/01/23 08:07 Hgb 13.4 g/dl (14.0-18.0) L 06/01/23 08:07 Hct 38.8 % (42.0-52.0) L 06/01/23 08:07 MCV 86.2 fL (80.0-100.0) 06/01/23 08:07 MCH 29.8 pg (25.0-34.0) 06/01/23 08:07 MCHC 34.5 g/dL (32.0-36.0) 06/01/23 08:07 RDW Std Deviation 38.2 fL (36.4-46.3) 06/01/23 08:07 RDW Coeff of Dana 12.2 % (11.5-14.5) 06/01/23 08:07 Plt Count 365 K/uL (130-400) 06/01/23 08:07 MPV 10.2 fL (9.4-12.4) 06/01/23 08:07 Immature Gran % (Auto) 2.3 % 06/01/23 08:07 Neut % (Auto) 73.0 % 06/01/23 08:07 Lymph % (Auto) 17.4 % 06/01/23 08:07 [place] % (Auto) 5.3 % 06/01/23 08:07 Eos % (Auto) 1.5 % 06/01/23 08:07 Baso % (Auto) 0.5 % 06/01/23 08:07 Neut # (Auto) 7.02 K/uL (1.40-6.50) H 06/01/23 08:07 Lymph # (Auto) 1.67 K/uL (1.20-3.40) 06/01/23 08:07 [place] # (Auto) 0.51 K/uL (0.11-0.59) 06/01/23 08:07 Eos # (Auto) 0.14 K/uL (0.00-0.50) 06/01/23 08:07 Baso # (Auto) 0.05 K/uL (0.00-0.20) 06/01/23 08:07 Immature Gran # (Auto) 0.22 K/uL (0.01-0.20) H 06/01/23 08:07 PT 11.1 Seconds (9.0-12.0) 06/01/23 08:07 INR 1.0 (0.9-1.1) 06/01/23 08:07 VBG pH 7.48 (7.36-7.41) H 05/26/23 15:43 VBG pCO2 41 mmHg (38-50) 05/26/23 15:43 VBG pO2 < 20 mmHg 05/26/23 15:43 VBG HCO3 31 mmol/L 05/26/23 15:43 VBG O2 Saturation < 60.0 % 05/26/23 15:43 VBG Base Excess 6.4 mEq/L 05/26/23 15:43 Sodium 139 mmol/L (136-145) 06/01/23 08:07 Potassium 4.0 mmol/L (3.5-5.1) 06/01/23 08:07 Chloride 102 mmol/L (98-107) 06/01/23 08:07 Carbon Dioxide 30 mmol/L (21-32) 06/01/23 08:07 Anion Gap 7 (3-11) 06/01/23 08:07 BUN 4 mg/dl (6-23) L 06/01/23 08:07 Creatinine 0.64 mg/dl (0.6-1.4) 06/01/23 08:07 Est Cr Clr Drug Dosing 113.2 ml/min 06/01/23 08:07 Est GFR ( Amer) 121.6 ml/min 06/01/23 08:07 Est GFR (Non-Af Amer) 104.9 ml/min 06/01/23 08:07 BUN/Creatinine Ratio 6.3 (10-20) L 06/01/23 08:07 Glucose 126 mg/dl (70-99(Fasting)) H 06/01/23 08:07 POC Glucose 123 mg/dl (70-99) H 05/26/23 19:10 Lactate 1.4 mmol/L (0.4-2.0) 05/26/23 17:39 Calcium 9.1 mg/dl (8.6-10.3) 06/01/23 08:07 Ionized Calcium 0.85 mmol/L (1.12-1.32) L 05/28/23 06:49 Phosphorus 3.4 mg/dl (2.5-4.9) D 06/01/23 08:07 Magnesium 1.6 mg/dl (1.7-2.4) L 06/01/23 08:07 Total Bilirubin 0.9 mg/dl (0.2-1.0) 05/28/23 06:49 Direct Bilirubin 0.6 mg/dl (0-0.2) H 05/27/23 06:50 AST 76 U/L (13-39) H 05/28/23 06:49 ALT 40 U/L (7-52) 05/28/23 06:49 Alkaline Phosphatase 85 U/L (34-104) 05/28/23 06:49 Ammonia 29.0 umol/L (18-72) 05/27/23 00:30 Total Creatine Kinase 931 U/L (30-223) H 05/29/23 08:06 Troponin I High Sens 7.7 pg/ml (0-20) 06/01/23 08:07 Total Protein 5.5 gm/dl (6.0-8.3) L 05/28/23 06:49 Albumin 2.8 gm/dl (3.4-5.0) L 05/28/23 06:49 Globulin 2.7 gm/dl (2.5-4.0) 05/28/23 06:49 Albumin/Globulin Ratio 1.0 (0.9-2) 05/28/23 06:49 25-OH Vitamin D Total < 7.0 ng/ml (30-100) L 05/30/23 07:59 Procalcitonin 1.05 ng/ml (0-0.5) H 05/26/23 15:15 Urine Color Dark Yellow 05/26/23 23:57 Urine Appearance Cloudy (Clear) A 05/26/23 23:57 Urine pH 6.5 (4.5-7.5) 05/26/23 23:57 Ur Specific [place] 1.024 (1.000-1.030) 05/26/23 23:57 Urine Protein 2+ (Negative) H 05/26/23 23:57 Urine Glucose (UA) Trace (Negative) H 05/26/23 23:57 Urine Ketones 2+ (Negative) H 05/26/23 23:57 Urine Blood 3+ (Negative) H 05/26/23 23:57 Urine Nitrite Negative (Negative) 05/26/23 23:57 Urine Bilirubin 1+ (Negative) H 05/26/23 23:57 Urine Urobilinogen Negative (Negative) 05/26/23 23:57 Ur Leukocyte Esterase Trace (Negative) H 05/26/23 23:57 Urine WBC (Auto) 10-30 /hpf (0-5) H 05/26/23 23:57 Urine RBC (Auto) 5-10 /hpf (0-4) H 05/26/23 23:57 U Hyaline Cast (Auto) >30 /lpf (0-5) H 05/26/23 23:57 U Epithel Cells (Auto) >30 /lpf (0-5) H 05/26/23 23:57 Urine Bacteria (Auto) Negative (Negative) 05/26/23 23:57 Ur Renal Epithelial Cell 0-5 /lpf (0-5) 05/26/23 23:57 Granular Casts >30 /lpf (0) H 05/26/23 23:57 Urine Mucus Present (None Prsent) A 05/26/23 17:00 Salicylates < 3.0 mg/dl (3.0-30) L 05/26/23 15:15 Urine Opiates Screen Neg (Neg) 05/26/23 23:57 Ur Methadone, Qual Neg (Neg) 05/26/23 23:57 Acetaminophen < 3 ug/ml (10-30) L 05/26/23 15:15 Urine Barbiturates Neg (Neg) 05/26/23 23:57 Ur Phencyclidine (PCP) Neg (Neg) 05/26/23 23:57 U Amphetamines Confirm 7470 ng/mL (<250) H 05/26/23 23:57 U Amphetamin/Meth Scrn Pos (Neg) H 05/26/23 23:57 U Methamphetamin Confrm NEGATIVE ng/mL (<250) 05/26/23 23:57 MDMA (Ecstasy) Screen Neg (Neg) 05/26/23 23:57 U OH-Alprazolam Confrm NEGATIVE ng/mL (<25) 05/26/23 23:57 U Benzodiazepines Scrn Pos (Neg) H 05/26/23 23:57 7-Amino Clonazepam NEGATIVE ng/mL (<25) 05/26/23 23:57 Ur Nordiazepam Confirm NEGATIVE ng/mL (<50) 05/26/23 23:57 U OH-ethylflurazepam NEGATIVE ng/mL (<50) 05/26/23 23:57 U Lorazepam Cnf GC/MS 286 ng/mL (<50) H 05/26/23 23:57 U Oxazepam Confm GC/MS NEGATIVE ng/mL (<50) 05/26/23 23:57 Ur Temazepam Confirm NEGATIVE ng/mL (<50) 05/26/23 23:57 U OH-Triazolam Confirm NEGATIVE ng/mL (<50) 05/26/23 23:57 U OH-Midazolam Confirm 1300 ng/mL (<50) H 05/26/23 23:57 Ur Cocaine Metabolite Neg (Neg) 05/26/23 23:57 U Marijuana (THC) Screen Neg (Neg) 05/26/23 23:57 Drug Screen Comment SEE NOTE 05/26/23 23:57 Ethyl Alcohol mg/dL < 10.0 mg/dl (<10.0) 05/26/23 15:43 Adenovirus (PCR) Not Detected (NotDetected) 05/26/23 17:20 B. pertussis DNA (PCR) Not Detected (NotDetected) 05/26/23 17:20 B.parapertussis DNA PCR Not Detected (NotDetected) 05/26/23 17:20 C. pneumoniae DNA (PCR) Not Detected (NotDetected) 05/26/23 17:20 Coronavirus OC43 (PCR) Not Detected (NotDetected) 05/26/23 17:20 Coronavirus HKU1 (PCR) Not Detected (NotDetected) 05/26/23 17:20 Coronavirus 229E (PCR) Not Detected (NotDetected) 05/26/23 17:20 SARS-CoV-2 (PCR) DETECTED (NotDetected) A* 05/26/23 17:20 Coronavirus NL63 (PCR) Not Detected (NotDetected) 05/26/23 17:20 Human Metapneumovir PCR Not Detected (NotDetected) 05/26/23 17:20 Influenza Type A (PCR) Not Detected (NotDetected) 05/26/23 17:20 Influenza Type B (PCR) Not Detected (NotDetected) 05/26/23 17:20 M. pneumoniae (PCR) Not Detected (NotDetected) 05/26/23 17:20 Parainfluenza 1 (PCR) Not Detected (NotDetected) 05/26/23 17:20 Parainfluenza 2 (PCR) Not Detected (NotDetected) 05/26/23 17:20 Parainfluenza 3 (PCR) Not Detected (NotDetected) 05/26/23 17:20 Parainfluenza 4 (PCR) Not Detected (NotDetected) 05/26/23 17:20 RSV (PCR) Not Detected (NotDetected) 05/26/23 17:20 Entero/Rhino (PCR) Not Detected (NotDetected) 05/26/23 17:[address] 05/26/23 15:02 CT head/brain wo con CLINICAL HISTORY: Fall on thinners Technique: Contiguous axial CT images of the head were acquired from the base of the skull to the vertex without intravenous contrast administration. Images were viewed in brain, subdural and bone windows. Automated dose lowering techniques and/or adjustment according to patient size were utilized for this exam. Comparison: Comparison is made to CT head 01/15/2022 Findings: Areas of decreased attenuation are present in the periventricular and subcortical white matter bilaterally consistent with small vessel ischemic disease. Generalized cerebral atrophy with commensurate enlargement of the ventricles, sulci, and cisterns is also present. There is no acute intracranial hemorrhage or evidence of acute territorial infarction. No shift of the midline structures, mass effect, or extra-axial abnormalities are shown. Atherosclerotic calcifications are present in the intracranial segments of the internal carotid arteries. Right maxillary mucous retention cyst is seen. The orbits appear normal. There are no acute fractures of the calvaria or scalp swelling. Impression: No acute intracranial hemorrhage, no evidence of acute territorial infarction or other acute intracranial disease process. ACT 112: Negative or not required by law. Electronically signed by: Rich Quarles M.D. 05/26/2023 3:28 PM Chest X-Ray 05/27/23 01:21 XR chest 1V portable CLINICAL HISTORY: tachypnea TECHNIQUE: Single frontal radiograph of the chest was obtained. Comparison: Comparison is made to chest radiograph 05/26/2023 FINDINGS: No lines and tubes are seen. Calcified aortic knob is seen. The lungs are clear. No evidence of pleural effusion or pneumothorax. IMPRESSION: No acute chest disease. ACT 112: Negative or not required by law. Electronically signed by: Rich Quarles M.D. 05/27/2023 7:54 AM
[2023-06-01] MEDS ORDERED: ERGOCALCIFEROL 50,000 UNITS 1250 MCG CAP PO SCH (14:30)
[2023-06-01] MEDS: MIRTAZAPINE TAB 15 MG TAB PO SCH (21:09)
[2023-06-01] MEDS: GABAPENTIN 600 MG TAB PO SCH (21:10)
[2023-06-02] MEDS: HEPARIN SOD 5,000 UNIT/0.5 ML VIAL SQ SCH ×3 (06:01→20:30)
[2023-06-02] MEDS ORDERED: LORazepam 0.5 MG in SYRINGE 0.25 ML IV ONE (06:15)
--- NOTE | 2023-06-02 09:10 | CT Scan Report ---
CT head/brain wo con CLINICAL HISTORY: 63 years-old Male with Rule out stroke. Acute strokelike symptoms TECHNIQUE: Multiple axial CT images of the head were obtained without contrast. A dose lowering tech nique was utilized adhering to the principles of ALARA. CT DOSE: 859.95 mGy.cm COMPARISON: 05/26/2023 FINDINGS: No acute intracranial hemorrhage, midline shift, intracranial mass, hydrocephalus, territorial ischem ia or abnormal extra-axial collection. Motion degraded exam. Involutional changes with chronic microv ascular ischemic disease. 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 Cerebrovascular calcifications. The calvarium is intact. Chronic nasal bone fractures. The paranasal sinuses, mastoid air cells, and middle ear cavities are clear. IMPRESSION: No acute intracranial abnormality identified. ACT 112: Negative or not required by law. The above report was generated using voice recognition software. It may contain grammatical, syntax o r spelling errors. Electronically signed by: Tim Godinez M.D. 06/02/2023 9:08 AM
[2023-06-02] MEDS: ATENOLOL 25 MG TABLET PO SCH (09:11)
[2023-06-02] MEDS: lisinopril 2.5 MG TAB PO SCH (09:11)
[2023-06-02] MEDS: MULTIVITAMIN TAB PO SCH (09:12)
[2023-06-02] MEDS: ATORVASTATIN 40 MG TAB PO SCH (09:12)
[2023-06-02] MEDS: POTASSIUM CHLORIDE CRTAB 20 MEQ TABCR PO SCH ×2 (09:13→20:31)
[2023-06-02] MEDS: MAGNESIUM CHLORIDE W/CALCIUM 64MG DELAYED REL TAB PO SCH ×3 (09:13→20:31)
[2023-06-02] MEDS: FLUTICASONE PROPIONATE NA SPR 16 GM BTL SCH (09:14)
[2023-06-02] MEDS: GABAPENTIN 300 MG CAP PO SCH ×2 (09:14→14:05)
[2023-06-02] MEDS: levETIRAcetam 500 MG TAB PO SCH (09:15)
[2023-06-02] MEDS: POT PHOSPHATE MONOBASIC W/ SOD TAB PO SCH ×4 (09:15→20:31)
[2023-06-02] MEDS: ASPIRIN 81 MG ECTAB PO SCH (09:15)
[2023-06-02] MEDS: THIAMINE HCL 200 MG in SODIUM CHLORIDE 0.9% 50 ML IV SCH (09:16)
[2023-06-02] MEDS: MICONAZOLE NITRATE 2% CR 30 GM TUBE EXT SCH ×2 (09:16→20:31)
[2023-06-02] MEDS: ALUMINUM/MAGNESIUM SUSP 30 ML UDC PO PRN (10:10)
--- NOTE | 2023-06-02 14:11 | Hospitalist Progress Note ---
Date of Service June 02, 2023 Assessment & Plan (1) Seizure: (2) Coronary artery disease: (3) Anxiety: (4) Schizoaffective disorder: (5) COPD (chronic obstructive pulmonary disease): (6) Rhabdomyolysis: (7) Electrolyte disturbance: Plan Mr. Noyola is a 63-year-old male that presented to the ED via EMS after he was found down after a ground-level fall at home. Patient significant other returned home after patient was well all day and was found down. When EMS arrived patient was found to have a 15 to 20-second seizure that occurred twice with similar time. Patient has known isolated seizure in 2017. No new medications and no issues with medication compliance noted by family. CXR negative, head CT negative for ICH and SDH. No midline shift noted. In the ED patient went into SVT and received adenosine 6 mg followed by 12 mg. Patient is admitted to telemetry for management of following condition: Alcohol use disorder Alcohol withdrawal Seizure: Possible Wernicke's encephalopathy Reported history of drinking hard cider/whiskey/beer from family. AST/ALT ratio elevated on admission Prior to presentation, 2 witnessed seizures lasting 15 to 20 seconds; noted flexion in bilateral elbows History of two isolated seizure 2017 after starting Chantix; no new medication or issues with med compliance Head CTno acute abnormality Started on Keppra in the ED; Over the course of the hospitalization, patient was treated with high-dose thiamine for possible Wernicke's encephalopathy, IV benzodiazepines for possible alcohol withdrawal seizure Electrolytes were also repeated. He was alert oriented x 3 after 5 days of treatment. Keppra was discontinued as per neurology recommendation. Monitor for further seizures off Keppra Electrolyte disturbance Vitamin D deficiency Hypocalcemia Hypomagnesemia Hypokalemia Electrolyte replacement ordered. Started on vitamin D supplement 50,000 units every week for 6 weeks, 2000 units afterward. On oral potassium, magnesium, phosphate supplements. Patient was also given vitamin K for elevated PT/INR; repeat PT/INR is normalized. Rhabdomyolysis: CK up trended to 7900, down trended Was given IV fluids CK down trended. COVID-19: asymptomatic incidental finding on biofire Chest x-ray personally reviewed; no infiltrates present. Initially started on dexamethasone; discontinued Continue to monitor oxygen saturation Demand ischemia EKG on admission personally reviewed; sinus tachycardia with ST depression in lateral leads. High sensitive troponin increased to 153 and down trended Echocardiogram shows EF of 55 to 60%; grade 1 diastolic dysfunction SVT: Patient went into SVT in the ED; received adenosine 6 mg followed by 12 mg; currently sinus tachycardia mid teens Continue to monitor on telemetry CAD: HTN: Chronic stable Takes atenolol, aspirin 162 mg, and lisinopril; continue Anxiety: Schizoaffective disorder: Takes dextro-amphetamine; hold for now Disposition: PCP: Dr. Jones CODE STATUS: Full code VTE prophylaxis: Heparin Discussed with significant other at bedside on May 27, 2023. Answered questions/queries. DispositionPT OT recommends rehab. Case management on board. Possible DC tomorrow to rehab. Time spent evaluating patient, direct bedside care, chart review, placing orders, interpretation of diagnostic studies, discussion with consultants, patient, and family members, as well as other required patient management activities is 50 minutes Please note the above document was generated using voice recognition software. It may contain grammatical, syntax or spelling errors. Any formal questions or concerns about the content, text or information contained within the body of this dictation should be directly addressed to the provider for clarification Admission and Anticipated Discharge Date Admission Date: May 26, 2023 Subjective Since seen and examined at bedside. He is alert oriented x 3. He is not in any distress. He reports generalized weakness. No other complaints. Review of Systems Review of Systems: All systems reviewed & are unremarkable except as noted in Subjective Physical Exam Physical Exam: Constitutional: Alert orient x 3 Respiratory: Bilateral vesicular breath sound Cardiovascular: RRR, no murmur, no edema Vessels: no JVD or carotid bruit Chest: normal inspection of chest Abdomen: normal bowel sounds, soft, nontender, no hepatosplenomegaly Skin: no rashes, warm and dry normal turgor Neurologic: Grossly intact Results & Data Results & Data Vital Signs (Past 12 Hours) Vital Signs Temp Pulse Pulse Resp BP Pulse Ox O2 Del Method 06/02/23 08:00 74 06/02/23 04:51 36.5 C 75 18 177/89 H 98 Room Air Laboratory Results Laboratory Results WBC 9.61 K/ul (4.8-10.8) 06/01/23 08:07 RBC 4.50 M/uL (4.70-6.10) L 06/01/23 08:07 Hgb 13.4 g/dl (14.0-18.0) L 06/01/23 08:07 Hct 38.8 % (42.0-52.0) L 06/01/23 08:07 MCV 86.2 fL (80.0-100.0) 06/01/23 08:07 MCH 29.8 pg (25.0-34.0) 06/01/23 08:07 MCHC 34.5 g/dL (32.0-36.0) 06/01/23 08:07 RDW Std Deviation 38.2 fL (36.4-46.3) 06/01/23 08:07 RDW Coeff of Dana 12.2 % (11.5-14.5) 06/01/23 08:07 Plt Count 365 K/uL (130-400) 06/01/23 08:07 MPV 10.2 fL (9.4-12.4) 06/01/23 08:07 Immature Gran % (Auto) 2.3 % 06/01/23 08:07 Neut % (Auto) 73.0 % 06/01/23 08:07 Lymph % (Auto) 17.4 % 06/01/23 08:07 Kane % (Auto) 5.3 % 06/01/23 08:07 Eos % (Auto) 1.5 % 06/01/23 08:07 Baso % (Auto) 0.5 % 06/01/23 08:07 Neut # (Auto) 7.02 K/uL (1.40-6.50) H 06/01/23 08:07 Lymph # (Auto) 1.67 K/uL (1.20-3.40) 06/01/23 08:07 Kane # (Auto) 0.51 K/uL (0.11-0.59) 06/01/23 08:07 Eos # (Auto) 0.14 K/uL (0.00-0.50) 06/01/23 08:07 Baso # (Auto) 0.05 K/uL (0.00-0.20) 06/01/23 08:07 Immature Gran # (Auto) 0.22 K/uL (0.01-0.20) H 06/01/23 08:07 PT 11.1 Seconds (9.0-12.0) 06/01/23 08:07 INR 1.0 (0.9-1.1) 06/01/23 08:07 VBG pH 7.48 (7.36-7.41) H 05/26/23 15:43 VBG pCO2 41 mmHg (38-50) 05/26/23 15:43 VBG pO2 < 20 mmHg 05/26/23 15:43 VBG HCO3 31 mmol/L 05/26/23 15:43 VBG O2 Saturation < 60.0 % 05/26/23 15:43 VBG Base Excess 6.4 mEq/L 05/26/23 15:43 Sodium 139 mmol/L (136-145) 06/01/23 08:07 Potassium 4.0 mmol/L (3.5-5.1) 06/01/23 08:07 Chloride 102 mmol/L (98-107) 06/01/23 08:07 Carbon Dioxide 30 mmol/L (21-32) 06/01/23 08:07 Anion Gap 7 (3-11) 06/01/23 08:07 BUN 4 mg/dl (6-23) L 06/01/23 08:07 Creatinine 0.64 mg/dl (0.6-1.4) 06/01/23 08:07 Est Cr Clr Drug Dosing 113.2 ml/min 06/01/23 08:07 Est GFR ( Amer) 121.6 ml/min 06/01/23 08:07 Est GFR (Non-Af Amer) 104.9 ml/min 06/01/23 08:07 BUN/Creatinine Ratio 6.3 (10-20) L 06/01/23 08:07 Glucose 126 mg/dl (70-99(Fasting)) H 06/01/23 08:07 POC Glucose 123 mg/dl (70-99) H 05/26/23 19:10 Lactate 1.4 mmol/L (0.4-2.0) 05/26/23 17:39 Calcium 9.1 mg/dl (8.6-10.3) 06/01/23 08:07 Ionized Calcium 0.85 mmol/L (1.12-1.32) L 05/28/23 06:49 Phosphorus 3.4 mg/dl (2.5-4.9) D 06/01/23 08:07 Magnesium 1.6 mg/dl (1.7-2.4) L 06/01/23 08:07 Total Bilirubin 0.9 mg/dl (0.2-1.0) 05/28/23 06:49 Direct Bilirubin 0.6 mg/dl (0-0.2) H 05/27/23 06:50 AST 76 U/L (13-39) H 05/28/23 06:49 ALT 40 U/L (7-52) 05/28/23 06:49 Alkaline Phosphatase 85 U/L (34-104) 05/28/23 06:49 Ammonia 29.0 umol/L (18-72) 05/27/23 00:30 Total Creatine Kinase 931 U/L (30-223) H 05/29/23 08:06 Troponin I High Sens 7.7 pg/ml (0-20) 06/01/23 08:07 Total Protein 5.5 gm/dl (6.0-8.3) L 05/28/23 06:49 Albumin 2.8 gm/dl (3.4-5.0) L 05/28/23 06:49 Globulin 2.7 gm/dl (2.5-4.0) 05/28/23 06:49 Albumin/Globulin Ratio 1.0 (0.9-2) 05/28/23 06:49 25-OH Vitamin D Total < 7.0 ng/ml (30-100) L 05/30/23 07:59 Procalcitonin 1.05 ng/ml (0-0.5) H 05/26/23 15:15 Urine Color Dark Yellow 05/26/23 23:57 Urine Appearance Cloudy (Clear) A 05/26/23 23:57 Urine pH 6.5 (4.5-7.5) 05/26/23 23:57 Ur Specific [place] 1.024 (1.000-1.030) 05/26/23 23:57 Urine Protein 2+ (Negative) H 05/26/23 23:57 Urine Glucose (UA) Trace (Negative) H 05/26/23 23:57 Urine Ketones 2+ (Negative) H 05/26/23 23:57 Urine Blood 3+ (Negative) H 05/26/23 23:57 Urine Nitrite Negative (Negative) 05/26/23 23:57 Urine Bilirubin 1+ (Negative) H 05/26/23 23:57 Urine Urobilinogen Negative (Negative) 05/26/23 23:57 Ur Leukocyte Esterase Trace (Negative) H 05/26/23 23:57 Urine WBC (Auto) 10-30 /hpf (0-5) H 05/26/23 23:57 Urine RBC (Auto) 5-10 /hpf (0-4) H 05/26/23 23:57 U Hyaline Cast (Auto) >30 /lpf (0-5) H 05/26/23 23:57 U Epithel Cells (Auto) >30 /lpf (0-5) H 05/26/23 23:57 Urine Bacteria (Auto) Negative (Negative) 05/26/23 23:57 Ur Renal Epithelial Cell 0-5 /lpf (0-5) 05/26/23 23:57 Granular Casts >30 /lpf (0) H 05/26/23 23:57 Urine Mucus Present (None Prsent) A 05/26/23 17:00 Salicylates < 3.0 mg/dl (3.0-30) L 05/26/23 15:15 Urine Opiates Screen Neg (Neg) 05/26/23 23:57 Ur Methadone, Qual Neg (Neg) 05/26/23 23:57 Acetaminophen < 3 ug/ml (10-30) L 05/26/23 15:15 Urine Barbiturates Neg (Neg) 05/26/23 23:57 Ur Phencyclidine (PCP) Neg (Neg) 05/26/23 23:57 U Amphetamines Confirm 7470 ng/mL (<250) H 05/26/23 23:57 U Amphetamin/Meth Scrn Pos (Neg) H 05/26/23 23:57 U Methamphetamin Confrm NEGATIVE ng/mL (<250) 05/26/23 23:57 MDMA (Ecstasy) Screen Neg (Neg) 05/26/23 23:57 U OH-Alprazolam Confrm NEGATIVE ng/mL (<25) 05/26/23 23:57 U Benzodiazepines Scrn Pos (Neg) H 05/26/23 23:57 7-Amino Clonazepam NEGATIVE ng/mL (<25) 05/26/23 23:57 Ur Nordiazepam Confirm NEGATIVE ng/mL (<50) 05/26/23 23:57 U OH-ethylflurazepam NEGATIVE ng/mL (<50) 05/26/23 23:57 U Lorazepam Cnf GC/MS 286 ng/mL (<50) H 05/26/23 23:57 U Oxazepam Confm GC/MS NEGATIVE ng/mL (<50) 05/26/23 23:57 Ur Temazepam Confirm NEGATIVE ng/mL (<50) 05/26/23 23:57 U OH-Triazolam Confirm NEGATIVE ng/mL (<50) 05/26/23 23:57 U OH-Midazolam Confirm 1300 ng/mL (<50) H 05/26/23 23:57 Ur Cocaine Metabolite Neg (Neg) 05/26/23 23:57 U Marijuana (THC) Screen Neg (Neg) 05/26/23 23:57 Drug Screen Comment SEE NOTE 05/26/23 23:57 Ethyl Alcohol mg/dL < 10.0 mg/dl (<10.0) 05/26/23 15:43 Adenovirus (PCR) Not Detected (NotDetected) 05/26/23 17:20 B. pertussis DNA (PCR) Not Detected (NotDetected) 05/26/23 17:20 B.parapertussis DNA PCR Not Detected (NotDetected) 05/26/23 17:20 C. pneumoniae DNA (PCR) Not Detected (NotDetected) 05/26/23 17:20 Coronavirus OC43 (PCR) Not Detected (NotDetected) 05/26/23 17:20 Coronavirus HKU1 (PCR) Not Detected (NotDetected) 05/26/23 17:20 Coronavirus 229E (PCR) Not Detected (NotDetected) 05/26/23 17:20 SARS-CoV-2 (PCR) DETECTED (NotDetected) A* 05/26/23 17:20 Coronavirus NL63 (PCR) Not Detected (NotDetected) 05/26/23 17:20 Human Metapneumovir PCR Not Detected (NotDetected) 05/26/23 17:20 Influenza Type A (PCR) Not Detected (NotDetected) 05/26/23 17:20 Influenza Type B (PCR) Not Detected (NotDetected) 05/26/23 17:20 M. pneumoniae (PCR) Not Detected (NotDetected) 05/26/23 17:20 Parainfluenza 1 (PCR) Not Detected (NotDetected) 05/26/23 17:20 Parainfluenza 2 (PCR) Not Detected (NotDetected) 05/26/23 17:20 Parainfluenza 3 (PCR) Not Detected (NotDetected) 05/26/23 17:20 Parainfluenza 4 (PCR) Not Detected (NotDetected) 05/26/23 17:20 RSV (PCR) Not Detected (NotDetected) 05/26/23 17:20 Entero/Rhino (PCR) Not Detected (NotDetected) 05/26/23 17:20 Impressions Chest X-Ray 05/27/23 01:21 XR chest 1V portable CLINICAL HISTORY: tachypnea TECHNIQUE: Single frontal radiograph of the chest was obtained. Comparison: Comparison is made to chest radiograph 05/26/2023 FINDINGS: No lines and tubes are seen. Calcified aortic knob is seen. The lungs are clear. No evidence of pleural effusion or pneumothorax. IMPRESSION: No acute chest disease. ACT 112: Negative or not required by law. Electronically signed by: Rich Quarles M.D. 05/27/2023 7:[address] 06/02/23 07:39 CT head/brain wo con CLINICAL HISTORY: 63 years-old Male with Rule out stroke. Acute strokelike symptoms TECHNIQUE: Multiple axial CT images of the head were obtained without contrast. A dose lowering technique was utilized adhering to the principles of ALARA. CT DOSE: 859.95 mGy.cm COMPARISON: 05/26/2023 FINDINGS: No acute intracranial hemorrhage, midline shift, intracranial mass, hydrocephalus, territorial ischemia or abnormal extra-axial collection. Motion degraded exam. Involutional changes with chronic microvascular ischemic disease. 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 Cerebrovascular calcifications. The calvarium is intact. Chronic nasal bone fractures. The paranasal sinuses, mastoid air cells, and middle ear cavities are clear. IMPRESSION: No acute intracranial abnormality identified. ACT 112: Negative or not required by law. The above report was generated using voice recognition software. It may contain grammatical, syntax or spelling errors. Electronically signed by: Tim Godinez M.D. 06/02/2023 9:08 AM
[2023-06-02] MEDS ORDERED: NIFEdipine EXTENDED REL 30 MG TABCR PO STA (15:58)
[2023-06-02] MEDS: MIRTAZAPINE TAB 15 MG TAB PO SCH (20:30)
[2023-06-02] MEDS: GABAPENTIN 600 MG TAB PO SCH (20:31)
[2023-06-03] MEDS: HEPARIN SOD 5,000 UNIT/0.5 ML VIAL SQ SCH ×2 (06:44→13:13)
[2023-06-03] MEDS: GABAPENTIN 300 MG CAP PO SCH ×2 (08:02→13:07)
[2023-06-03] MEDS: FLUTICASONE PROPIONATE NA SPR 16 GM BTL SCH (08:02)
[2023-06-03] MEDS: ATORVASTATIN 40 MG TAB PO SCH (08:03)
[2023-06-03] MEDS: MICONAZOLE NITRATE 2% CR 30 GM TUBE EXT SCH (08:03)
[2023-06-03] MEDS: MULTIVITAMIN TAB PO SCH (08:03)
[2023-06-03] MEDS: MAGNESIUM CHLORIDE W/CALCIUM 64MG DELAYED REL TAB PO SCH ×2 (08:03→13:07)
[2023-06-03] MEDS: POTASSIUM CHLORIDE CRTAB 20 MEQ TABCR PO SCH (08:04)
[2023-06-03] MEDS: POT PHOSPHATE MONOBASIC W/ SOD TAB PO SCH ×2 (08:05→13:07)
[2023-06-03] MEDS: ASPIRIN 81 MG ECTAB PO SCH (08:06)
[2023-06-03] MEDS: ATENOLOL 25 MG TABLET PO SCH (08:07)
[2023-06-03] MEDS ORDERED: lisinopril 20 MG TAB PO SCH (09:00)
[2023-06-03 09:01] LABS: Albumin Level 3.7 gm/dl (3.4-5.0); BUN Creatinine Ratio 8.3 (10-20); Bilirubin,Total 0.7 mg/dl (0.2-1.0); Calcium 9.1 mg/dl (8.6-10.3); Creatinine Clr Calc Pharmacy 119.9 ml/min; Est GFR (African American) 124.9 ml/min; Est GFR (Non-African American) 107.8 ml/min; Globulin 3.8 gm/dl (2.5-4.0); Magnesium 1.7 mg/dl (1.7-2.4); Phosphorus 3.7 mg/dl (2.5-4.9); Potassium 4.4 mmol/L (3.5-5.1); Total Protein 7.5 gm/dl (6.0-8.3)
[2023-06-03] MEDS: ALUMINUM/MAGNESIUM SUSP 30 ML UDC PO PRN (12:18)
--- NOTE | 2023-06-03 14:27 | Discharge Summary ---
Date of Service June 03, 2023 Admission HPI Per Admitting Provider Mr. Noyola is a 63-year-old male that presented to the ED via EMS after he was found down after a ground-level fall at home. Patient significant other returned home after patient was well all day and was found down. When EMS arrived patient was found to have a 15 to 20-second seizure that occurred twice with similar time. Patient has known isolated seizure in 2017. No new medications and no issues with medication compliance noted by family. CXR negative, head CT negative for ICH and SDH. No midline shift noted. In the ED patient went into SVT and received adenosine 6 mg followed by 12 mg. Underlying sinus tachycardia; ECG shows QTc 543. As of 1699 patient has not returned back to baseline. Patient did receive Ativan 1 mg in the ED for agitation postictally. Patient with leukocytosis 13.12 and lactate elevated 4.4; suspect overall these are likely reactive secondary to seizure. Patient with hypokalemia 2.5, hypocalcemia 5.7; replacement of both initiated in ED. CK level elevated at 4564. Procalcitonin 1.0; empiric treatment started with cefepime which can be supported with elevated lactate. Initial troponin 35.5; will trend but suspect this is likely due to ischemic demand and recent seizure. Additional past medical history includes known seizure history, CAD, ADHD, COPD, and HLD. Suspect patient had a seizure now with rhabdomyolysis including electrolyte abnormalities. We will closely monitor BMP and CK levels. Obtain EEG with neurology consultation. Patient will be admitted for further evaluation and management. Please see A/P for further details. Admission Exam Per Admitting Provider Neuro: AAOx4, PERRLA, no aphagia, memory changes, CNII-XII grossly intact (+) tremulous with stutter HEENT: head normocephalic, moist mucus membranes CV: S1/S2, (-) M/G/R, (-) edema, cap refill < 3 seconds Resp: Lungs CTA in all [place]. On RA GI: Abdomen S/NT/ND, Ax4 bowel sounds, (-) CVA tenderness Musculoskeletal: 5/5 B/L UE strength, 5/5 B/L LE strength. No gait disturbance Skin: (-) rashes , (-) erythema. lip with dark dried blood. Lip was bit during seizure. Psych: euthymic mood Principal Diagnosis Alcohol use disorder Alcohol withdrawal Seizure: Possible Wernicke's encephalopathy Electrolyte disturbance Vitamin D deficiency Hypocalcemia Hypomagnesemia Hypokalemia Rhabdomyolysis: COVID-19: Discharge Exam Constitutional: Alert orient x 3 Respiratory: Bilateral vesicular breath sound Cardiovascular: RRR, no murmur, no edema Vessels: no JVD or carotid bruit Chest: normal inspection of chest Abdomen: normal bowel sounds, soft, nontender, no hepatosplenomegaly Skin: no rashes, warm and dry normal turgor Neurologic: Grossly intact Discharge Data Allergies Allergy/AdvReac Type Severity Reaction Status Date / Time hydrocodone Allergy Severe RENAL Verified 05/26/23 17:28 INSUFFICIENCY varenicline [From Chantix] Allergy Severe Seizure Verified 05/26/23 17:28 Iodinated Contrast Media Allergy Intermediate nausea , Verified 05/26/23 17:28 [Iodinated Contrast- Oral vomiting and IV Dye] and vertigo shellfish derived Allergy Intermediate VOMITING/PAIN Verified 05/26/23 17:28 IN STOMACH chlorpromazine Allergy Unknown UNKNOWN Verified 05/26/23 17:28 haloperidol Allergy Unknown Unknown Verified 05/26/23 17:28 oxcarbazepine AdvReac Severe RENAL Verified 05/26/23 17:28 INSUFFICIENCY Consultations 05/26/23 17:11 ED Decision to Admit Stat 05/26/23 17:14 Consult Neurology Routine Ordered Studies 05/26/23 15:02 CT head/brain wo con Stat 06/02/23 07:39 CT head/brain wo con Urgent Hospital Course (1) Seizure: (2) Coronary artery disease: (3) Anxiety: (4) Schizoaffective disorder: (5) COPD (chronic obstructive pulmonary disease): (6) Rhabdomyolysis: (7) Electrolyte disturbance: Plan Mr. Noyola is a 63-year-old male that presented to the ED via EMS after he was found down after a ground-level fall at home. Patient significant other returned home after patient was well all day and was found down. When EMS arrived patient was found to have a 15 to 20-second seizure that occurred twice with similar time. Patient has known isolated seizure in 2017. No new medications and no issues with medication compliance noted by family. CXR negative, head CT negative for ICH and SDH. No midline shift noted. In the ED patient went into SVT and received adenosine 6 mg followed by 12 mg. Patient is admitted to telemetry for management of following condition: Alcohol use disorder Alcohol withdrawal Seizure: Possible Wernicke's encephalopathy Reported history of drinking hard cider/whiskey/beer from family. AST/ALT ratio elevated on admission Prior to presentation, 2 witnessed seizures lasting 15 to 20 seconds; noted flexion in bilateral elbows History of two isolated seizure 2017 after starting Chantix; no new medication or issues with med compliance Head CTno acute abnormality Started on Keppra in the ED; Over the course of the hospitalization, patient was treated with high-dose thiamine for possible Wernicke's encephalopathy, IV benzodiazepines for possible alcohol withdrawal seizure Electrolytes were also repeated. He was alert oriented x 3 after 5 days of treatment. Keppra was discontinued as per neurology recommendation. Electrolyte disturbance Vitamin D deficiency Hypocalcemia Hypomagnesemia Hypokalemia Electrolyte replacement ordered. Started on vitamin D supplement 50,000 units every week for 6 weeks, 2000 units afterward. On oral potassium, magnesium Patient was also given vitamin K for elevated PT/INR; repeat PT/INR is normalized. Rhabdomyolysis: CK up trended to 7900, down trended Was given IV fluids CK down trended. COVID-19: asymptomatic incidental finding on biofire Chest x-ray personally reviewed; no infiltrates present. Initially started on dexamethasone; discontinued Patient saturating well on room air at discharge. Demand ischemia EKG on admission personally reviewed; sinus tachycardia with ST depression in lateral leads. High sensitive troponin increased to 153 and down trended Echocardiogram shows EF of 55 to 60%; grade 1 diastolic dysfunction Patient discharged to [facility] Please note the above document was generated using voice recognition software. It may contain grammatical, syntax or spelling errors. Any formal questions or concerns about the content, text or information contained within the body of this dictation should be directly addressed to the provider for clarification Total Time Total Time Spent Total Time Spent (In Minutes): 45 Total Time Includes: Examination of the Patient, Discharge Planning, Medication Reconciliation, Communication With Other Providers and Other Discharge Plan Discharge Items Patient Disposition: Transfer Inpatient Rehab Fac Reason For Visit: SEIZURE LIKE ACTIVITY Discharge Diagnosis: Alcohol use disorder Alcohol withdrawal Seizure: Possible Wernicke's encephalopathy Electrolyte disturbance Vitamin D deficiency Hypocalcemia Hypomagnesemia Hypokalemia Rhabdomyolysis: COVID-19: Activity: Resume your previous activity Non-emergency contact: Primary Care Provider Call non-emergency contact if: you have any medication questions and your symptoms worsen Follow-up/Referrals: Mao Jones MD [Primary Care Provider] - Diet: Regular Addtl Attending Provider Instructions: You were admitted to the hospital for possible seizure. You are found to have electrolyte abnormalities. You were also found to have COVID-19 infection. Please take your medication as prescribed. Please follow-up with your primary care doctor after discharge from the hospital. Pending Studies at Discharge: No Stand-Alone Forms: My [employer], Smoking Cessation Skilled Items Patient informed of condition?: Yes DNR: No Discharge Level of Care: Acute rehab Communicable Disease: No Discharge Prognosis: Stable Lines: None Urinary Catheter: No Medications and DC Order Prescriptions: New lisinopril 20 mg Tablet 20 mg PO DAILY Qty: 30 0RF potassium chloride 20 mEq Tablet,Er Particles/Crystals 20 meq PO DAILY Qty: 60 0RF Mag 64 64 mg Tablet,Delayed Release (Dr/Ec) 64 mg PO BID Qty: 60 0RF ergocalciferol (vitamin D2) 1,250 mcg (50,000 unit) Capsule 50,000 unit PO Q7D@0900 Qty: 5 0RF thiamine HCl (vitamin B1) 250 mg tablet 250 mg PO DAILY Qty: 30 0RF folic acid 1 mg tablet 1 mg PO DAILY Qty: 30 0RF Continued atorvastatin 40 mg tablet 40 mg PO DAILY Rx Instructions: takes with biggest meal of the day atenolol 25 mg tablet 25 mg PO DAILY doxepin 100 mg capsule 100 mg PO HS gabapentin 300 mg capsule See Rx Instructions .ROUTE .COMPLEX Rx Instructions: 300 mg orally; TAKES 300 MG BID, THEN 600 MG AT HS. aspirin 325 mg Tablet 162 mg PO QAM Patient Comments: USUALLY TAKES 1 DOSE A DAY multivitamin Tablet 1 tab PO DAILY vitamin B complex Tablet 1 tab PO DAILY fluticasone propionate 50 mcg/actuation spray,suspension 2 spray Intranasal DAILY nitroglycerin 0.4 mg tablet, sublingual 0.4 mg Sublingual UD PRN (Reason: Chest Pain) omeprazole 20 mg capsule,delayed release(DR/EC) 20 mg PO DAILY sildenafil 100 mg tablet 100 mg PO DIRECTED PRN (Reason: Erectile Dysfunction) mirtazapine 15 mg tablet 30 mg PO HS Discontinued cholecalciferol (vitamin D3) [Vitamin D3] 1,000 unit Capsule 1,000 unit PO DAILY lisinopril 2.5 mg tablet 2.5 mg PO DAILY tramadol 50 mg tablet 50 mg PO Q6 PRN (Reason: Pain) Discharge Orders: Discharge Order (Routine); Ordered 06/03/23 Ordered By: Derrell Harper Admission Data Admit Date/Time: 05/26/23 17:14 Attending Provider: Derrell Harper Admit Provider: Leeann Cornelius Primary Care Provider: Mao Jones Other Providers: Leeann Cornelius; Tyrese Del Rio; [facility] Other Interventions: Discharge Summary Assessment (RN) Last Done: 06/03/23 11:43
--- NOTE | 2023-06-03 22:26 | Electroencephalogram ---
EEG Procedure Note Date of Service June 03, 2023 Start / End Times Start Time: 06:17 End Time: 0637 Referring Physician Derrell Harper History A 63 year old male with seizure like activity. EEG performed for evaluation of epileptiform activity. Home Medication List Medication Instructions Recorded Confirmed Type aspirin 325 mg tablet 162 mg PO QAM 07/10/18 05/26/23 History atenolol 25 mg tablet 25 mg PO DAILY 07/10/18 05/26/23 History atorvastatin 40 mg tablet 40 mg PO DAILY 07/10/18 05/26/23 History doxepin 100 mg capsule 100 mg PO HS 07/10/18 05/26/23 History fluticasone propionate 50 2 spray intranasal DAILY 07/10/18 05/26/23 History mcg/actuation nasal spray,suspension gabapentin 300 mg capsule See Rx Instructions .Route .COMPLEX 07/10/18 05/26/23 History multivitamin 1 tab PO DAILY 07/10/18 05/26/23 History nitroglycerin 0.4 mg sublingual 0.4 mg sublingual UD PRN Chest Pain 07/10/18 05/26/23 History tablet omeprazole 20 mg capsule,delayed 20 mg PO DAILY 07/10/18 05/26/23 History release vitamin B complex 1 tab PO DAILY 07/10/18 05/26/23 History mirtazapine 15 mg tablet 30 mg PO HS 09/07/21 05/26/23 History sildenafil 100 mg tablet 100 mg PO DIRECTED PRN Erectile 09/07/21 05/26/23 History Dysfunction ergocalciferol (vitamin D2) 1,250 50,000 unit PO Q7D@0900 #5 caps 06/03/23 Rx mcg (50,000 unit) capsule folic acid 1 mg tablet 1 mg PO DAILY #30 tabs 06/03/23 Rx lisinopril 20 mg tablet 20 mg PO DAILY #30 tabs 06/03/23 Rx magnesium chloride 64 mg 64 mg PO BID #60 tabs 06/03/23 Rx (magnesium chloride) tablet,delayed release (Mag 64) potassium chloride 20 mEq 20 meq PO DAILY #60 tabs 06/03/23 Rx tablet,extended release(part/cryst) thiamine HCl (vitamin B1) 250 mg 250 mg PO DAILY #30 tabs 06/03/23 Rx tablet Inpatient Medication List Discontinued Medications Acetaminophen (Acetaminophen 325 Mg Tab) 650 mg PO Q4H PRN PRN Reason: Pain or Fever Stop: 06/25/23 17:13 Last Admin: 05/31/23 07:51 Dose: 650 mg Documented By: Admin: 05/30/23 23:44 Dose: 650 mg Documented By: Admin: 05/30/23 04:54 Dose: 650 mg Documented By: [id number] Adenosine (Adenosine Iv Soln 3 Mg/Ml 2 Ml Vial) Confirm Administered Dose 6 mg IV .STK-MED ONE Stop: 05/26/23 15:45 Last Admin: 05/26/23 15:52 Dose: 6 mg Documented By: MIC Adenosine (Adenosine Iv Soln 3 Mg/Ml 2 Ml Vial) Confirm Administered Dose 12 mg IV .STK-MED ONE Stop: 05/26/23 15:54 Last Admin: 05/26/23 15:58 Dose: 12 mg Documented By: MIC Adenosine (Adenosine Iv Soln 3 Mg/Ml 2 Ml Vial) 12 mg IV ONE ONE Stop: 05/26/23 16:16 Last Admin: 05/26/23 16:11 Dose: Not Given Documented By: MIC Al Hydrox/Mg Hydrox/Simethicone (Aluminum/Magnesium Susp 30 Ml Udc) 15 ml PO Q4H PRN PRN Reason: Dyspepsia Stop: 06/25/23 17:13 Last Admin: 06/03/23 12:18 Dose: 15 ml Documented By: Admin: 06/02/23 10:10 Dose: 15 ml Documented By: Admin: 05/31/23 19:55 Dose: 15 ml Documented By: LUNA Aspirin (Aspirin 81 Mg Ectab) [facility] Stop: 06/26/23 08:59 Last Admin: 06/03/23 08:06 Dose: 162 mg Documented By: Admin: 06/02/23 09:15 Dose: 162 mg Documented By: Admin: 06/01/23 07:35 Dose: 162 mg Documented By: Admin: 05/31/23 07:44 Dose: 162 mg Documented By: Admin: 05/30/23 09:19 Dose: 162 mg Documented By: LISSA(2) Admin: 05/29/23 09:01 Dose: 162 mg Documented By: LUNA(2) Admin: 05/28/23 07:59 Dose: 162 mg Documented By: MIC(2) Admin: 05/27/23 08:23 Dose: Not Given Documented By: MIC(2) Atenolol (Atenolol 25 Mg Tablet) 25 mg PO DAILY JOSE Stop: 06/26/23 08:59 Last Admin: 06/03/23 08:07 Dose: 25 mg Documented By: Admin: 06/02/23 09:11 Dose: 25 mg Documented By: Admin: 06/01/23 07:35 Dose: 25 mg Documented By: CHACHA Atorvastatin Calcium (Atorvastatin 40 Mg Tab) 40 mg PO QAM JOSE Stop: 07/01/23 08:59 Last Admin: 06/03/23 08:03 Dose: 40 mg Documented By: Admin: 06/02/23 09:12 Dose: 40 mg Documented By: Admin: 06/01/23 07:35 Dose: 40 mg Documented By: CHACHA Diazepam (Diazepam 5 Mg Tablet) 5 mg PO Q6H JOSE Stop: 06/26/23 08:59 Last Admin: 05/30/23 03:00 Dose: Not Given Documented By: [id number] Admin: 05/29/23 21:00 Dose: Not Given Documented By: [id number] Admin: 05/29/23 15:59 Dose: Not Given Documented By: LUNA(2) Admin: 05/29/23 09:00 Dose: 5 mg Documented By: CM(2) Admin: 05/29/23 03:49 Dose: 5 mg Documented By: Admin: 05/28/23 20:34 Dose: 5 mg Documented By: Admin: 05/28/23 14:35 Dose: 5 mg Documented By: LUNA(2) Admin: 05/28/23 08:00 Dose: 5 mg Documented By: MIC(2) Admin: 05/28/23 02:04 Dose: Not Given Documented By: CHACHA(2) Admin: 05/27/23 20:16 Dose: Not Given Documented By: CAROL ANNB(2) Admin: 05/27/23 14:42 Dose: Not Given Documented By: MIC(2) Admin: 05/27/23 10:17 Dose: Not Given Documented By: MIC(2) Doxepin HCl (Doxepin Hcl 50 Mg Capsule) 100 mg PO HS JOSE Stop: 06/25/23 20:59 Last Admin: 05/26/23 21:51 Dose: Not Given Documented By: JJH Ergocalciferol (Ergocalciferol 50,000 Units 1250 Mcg Cap) 50,000 units PO ONCE ONE Stop: 05/30/23 09:57 Last Admin: 05/30/23 11:08 Dose: 50,000 units Documented By: LISSA(2) Ergocalciferol (Ergocalciferol 50,000 Units 1250 Mcg Cap) 50,000 units PO Q7D@0900 JOSE Stop: 07/01/23 14:29 Last Admin: 06/01/23 16:39 Dose: 50,000 units Documented By: CHACHA Fluticasone Propionate (Fluticasone Propionate Na Spr 16 Gm Btl) 2 sprays NA DAILY JOSE Stop: 06/26/23 08:59 Last Admin: 06/03/23 08:02 Dose: 2 sprays Documented By: Admin: 06/02/23 09:14 Dose: 2 sprays Documented By: Admin: 06/01/23 07:36 Dose: 2 sprays Documented By: Admin: 05/31/23 07:45 Dose: 2 sprays Documented By: Admin: 05/30/23 09:19 Dose: 2 sprays Documented By: LISSA(2) Admin: 05/29/23 09:01 Dose: Not Given Documented By: LUNA(2) Admin: 05/28/23 07:59 Dose: Not Given Documented By: MIC(2) Admin: 05/27/23 09:00 Dose: Not Given Documented By: MIC(2) Folic Acid (Folic Acid 1 Mg Tab) 1 mg PO QAM JOSE Stop: 06/26/23 08:59 Last Admin: 05/27/23 08:23 Dose: Not Given Documented By: MIC(2) Gabapentin (Gabapentin 300 Mg Cap) 300 mg PO BID@0800,1400 [facility] Stop: 06/26/23 07:59 Last Admin: 06/03/23 13:07 Dose: 300 mg Documented By: Admin: 06/03/23 08:02 Dose: 300 mg Documented By: Admin: 06/02/23 14:05 Dose: 300 mg Documented By: Admin: 06/02/23 09:14 Dose: 300 mg Documented By: Admin: 06/01/23 13:13 Dose: 300 mg Documented By: CAROL ANNB Admin: 06/01/23 07:34 Dose: 300 mg Documented By: CAROL ANNB Admin: 05/31/23 14:18 Dose: 300 mg Documented By: CAROL ANNB Admin: 05/31/23 07:44 Dose: 300 mg Documented By: CAROL ANNB Admin: 05/30/23 14:11 Dose: 300 mg Documented By: LAKSHMIN(2) Admin: 05/30/23 09:19 Dose: 300 mg Documented By: LAKSHMIN(2) Admin: 05/29/23 13:10 Dose: 300 mg Documented By: LUNA(2) Admin: 05/29/23 09:00 Dose: 300 mg Documented By: LUNA(2) Admin: 05/28/23 14:36 Dose: 300 mg Documented By: LUNA(2) Admin: 05/28/23 07:59 Dose: 300 mg Documented By: MIC(2) Admin: 05/27/23 12:55 Dose: Not Given Documented By: MIC(2) Admin: 05/27/23 08:23 Dose: Not Given Documented By: MIC(2) Gabapentin (Gabapentin 600 Mg Tab) 600 mg PO HS JOSE Stop: 06/25/23 20:59 Last Admin: 06/02/23 20:31 Dose: 600 mg Documented By: Admin: 06/01/23 21:10 Dose: 600 mg Documented By: Admin: 05/31/23 20:03 Dose: 600 mg Documented By: Admin: 05/30/23 21:16 Dose: 600 mg Documented By: Admin: 05/29/23 21:35 Dose: 600 mg Documented By: Admin: 05/28/23 20:35 Dose: 600 mg Documented By: Admin: 05/27/23 20:17 Dose: Not Given Documented By: CHACHA(2) Admin: 05/26/23 21:52 Dose: Not Given Documented By: PRINCESS Guaifenesin (Guaifenesin 600 Mg Tabcr) 600 mg PO Q12 JOSE Stop: 06/26/23 08:59 Last Admin: 05/31/23 07:45 Dose: 600 mg Documented By: Admin: 05/30/23 21:14 Dose: 600 mg Documented By: Admin: 05/30/23 09:19 Dose: 600 mg Documented By: LISSA(2) Admin: 05/29/23 21:34 Dose: 600 mg Documented By: Admin: 05/29/23 09:02 Dose: 600 mg Documented By: LUNA(2) Admin: 05/28/23 20:45 Dose: Not Given Documented By: Admin: 05/28/23 07:59 Dose: 600 mg Documented By: MIC(2) Admin: 05/27/23 20:17 Dose: Not Given Documented By: CHACHA(2) Admin: 05/27/23 08:23 Dose: Not Given Documented By: MIC(2) Heparin Sodium (Porcine) (Heparin Sod 5,000 Unit/0.5 Ml Vial) 5,000 units SQ Q8 JOSE Stop: 06/27/23 14:59 Last Admin: 06/03/23 13:13 Dose: Not Given Documented By: KGJose Admin: 06/03/23 06:44 Dose: 5,000 units Documented By: Admin: 06/02/23 20:30 Dose: 5,000 units Documented By: Admin: 06/02/23 14:05 Dose: 5,000 units Documented By: Admin: 06/02/23 06:01 Dose: 5,000 units Documented By: Admin: 06/01/23 21:10 Dose: 5,000 units Documented By: Admin: 06/01/23 13:14 Dose: 5,000 units Documented By: Admin: 06/01/23 05:26 Dose: 5,000 units Documented By: Admin: 05/31/23 20:02 Dose: 5,000 units Documented By: Admin: 05/31/23 14:17 Dose: 5,000 units Documented By: Admin: 05/31/23 05:29 Dose: 5,000 units Documented By: Admin: 05/30/23 21:15 Dose: 5,000 units Documented By: Admin: 05/30/23 14:09 Dose: 5,000 units Documented By: LISSA(2) Admin: 05/30/23 05:00 Dose: 5,000 units Documented By: [id number] Admin: 05/29/23 21:06 Dose: 5,000 units Documented By: [id number] Admin: 05/29/23 13:10 Dose: 5,000 units Documented By: LUNA(2) Admin: 05/29/23 05:42 Dose: 5,000 units Documented By: Admin: 05/28/23 20:59 Dose: 5,000 units Documented By: Admin: 05/28/23 16:42 Dose: 5,000 units Documented By: LUNA(2) Sodium Chloride (Nss) 1,000 mls @ 999 mls/hr IV .Q1H1M ONE Stop: 05/26/23 17:01 Last Infusion: 05/26/23 16:58 Dose: Infused Documented By: Admin: 05/26/23 16:03 Dose: 999 mls/hr Documented By: MIC Calcium Gluconate () 1,000 mg in 60 mls @ 240 mls/hr IV NOW STA Stop: 05/26/23 16:35 Last Infusion: 05/26/23 17:21 Dose: Infused Documented By: Admin: 05/26/23 16:58 Dose: 240 mls/hr Documented By: MIC Potassium Chloride (K José / Wtr) 10 meq in 100 mls @ 100 mls/hr IV Q1H JOSE Stop: 05/26/23 18:29 Last Infusion: 05/26/23 19:21 Dose: Infused Documented By: Admin: 05/26/23 18:03 Dose: 100 mls/hr Documented By: Infusion: 05/26/23 17:58 Dose: Infused Documented By: Admin: 05/26/23 16:58 Dose: 100 mls/hr Documented By: MIC Cefepime HCl (Maxipime) 2,000 mg in 20 mls @ 5 mls/min IV NOW STA; Protocol Stop: 05/26/23 17:16 Last Admin: 05/26/23 17:16 Dose: 5 mls/min Documented By: MIC Sodium Chloride (Nss) 2,000 mls @ 999 mls/hr IV .Q2H1M ONE Stop: 05/26/23 19:16 Last Infusion: 05/26/23 20:42 Dose: Infused Documented By: Admin: 05/26/23 18:03 Dose: 999 mls/hr Documented By: MIC Magnesium Sulfate/Dextrose (Magnesium Sulfate / D5w) 1 gm in 100 mls @ 100 mls/hr IV Q1H JOSE Stop: 05/26/23 19:56 Last Infusion: 05/26/23 19:32 Dose: Infused Documented By: Admin: 05/26/23 18:26 Dose: 100 mls/hr Documented By: MARC Potassium Chloride 40 meq/Magnesium Sulfate 4 gm/Calcium Gluconate 1,000 mg/Sodium Chloride 1,038 mls @ 125 mls/hr IV .Q8H19M JOSE Stop: 05/27/23 03:15 Last Infusion: 05/27/23 03:47 Dose: Infused Documented By: Admin: 05/26/23 19:27 Dose: 125 mls/hr Documented By: PRINCESS Levetiracetam 1,000 mg/ Sodium (Chloride) 110 mls @ 440 mls/hr IV NOW STA Stop: 05/26/23 18:48 Last Infusion: 05/26/23 20:00 Dose: Infused Documented By: Admin: 05/26/23 19:30 Dose: 440 mls/hr Documented By: PRINCESS Lorazepam 0.5 mg/ Syringe 0.5 mls @ 2 mls/min IV Q8H PRN PRN Reason: Anxiety/Agitation Stop: 06/25/23 19:53 Last Admin: 05/26/23 20:38 Dose: 2 mls/min Documented By: PRINCESS Lorazepam 1 mg/ Syringe 1 mls @ 2 mls/min IV UD PRN PRN Reason: seizure Last Admin: 05/27/23 11:18 Dose: 2 mls/min Documented By: MIC(2) Levetiracetam 500 mg/ Sodium (Chloride) 105 mls @ 420 mls/hr IV Q12H JOSE Stop: 06/26/23 06:59 Last Infusion: 05/31/23 06:21 Dose: Infused Documented By: Admin: 05/31/23 05:29 Dose: 420 mls/hr Documented By: Infusion: 05/30/23 18:28 Dose: Infused Documented By: Admin: 05/30/23 18:01 Dose: 420 mls/hr Documented By: Infusion: 05/30/23 06:15 Dose: Infused Documented By: [id number] Admin: 05/30/23 06:00 Dose: 420 mls/hr Documented By: [id number] Infusion: 05/29/23 18:43 Dose: Infused Documented By: CM(2) Admin: 05/29/23 18:27 Dose: 420 mls/hr Documented By: CM(2) Infusion: 05/29/23 06:40 Dose: Infused Documented By: Admin: 05/29/23 06:03 Dose: 420 mls/hr Documented By: Infusion: 05/28/23 18:38 Dose: Infused Documented By: CM(2) Admin: 05/28/23 18:23 Dose: 420 mls/hr Documented By: CM(2) Infusion: 05/28/23 06:19 Dose: Infused Documented By: DMB(2) Admin: 05/28/23 06:04 Dose: 420 mls/hr Documented By: DMB(2) Infusion: 05/27/23 19:38 Dose: Infused Documented By: DMB(2) Admin: 05/27/23 19:23 Dose: 420 mls/hr Documented By: DMB(2) Infusion: 05/27/23 08:02 Dose: Infused Documented By: MIC(2) Admin: 05/27/23 07:31 Dose: 420 mls/hr Documented By: KELuis Carlos(2) Lorazepam 2 mg/ Syringe 2 mls @ 2 mls/min IV UD PRN; Protocol PRN Reason: EtOH Withdrawal AWSS Score 8,9 Stop: 06/25/23 21:25 Last Admin: 05/29/23 02:46 Dose: 2 mls/min Documented By: Admin: 05/28/23 18:47 Dose: 2 mls/min Documented By: CM(2) Admin: 05/28/23 16:40 Dose: 2 mls/min Documented By: CM(2) Admin: 05/28/23 13:22 Dose: 2 mls/min Documented By: CM(2) Admin: 05/28/23 11:03 Dose: 2 mls/min Documented By: CM(2) Admin: 05/28/23 08:27 Dose: 2 mls/min Documented By: CM(2) Admin: 05/28/23 06:05 Dose: 2 mls/min Documented By: DMB(2) Admin: 05/28/23 04:01 Dose: 2 mls/min Documented By: Admin: 05/28/23 01:38 Dose: 2 mls/min Documented By: CHACHA(2) Admin: 05/27/23 23:58 Dose: 2 mls/min Documented By: CHACHA(2) Admin: 05/27/23 22:54 Dose: 2 mls/min Documented By: CHACHA(2) Admin: 05/27/23 20:36 Dose: 2 mls/min Documented By: CHACHA(2) Admin: 05/27/23 19:15 Dose: 2 mls/min Documented By: CHACHA(2) Admin: 05/27/23 17:12 Dose: 2 mls/min Documented By: MIC(2) Admin: 05/27/23 15:10 Dose: 2 mls/min Documented By: MIC(2) Admin: 05/27/23 12:58 Dose: 2 mls/min Documented By: MIC(2) Admin: 05/27/23 08:16 Dose: 2 mls/min Documented By: MIC(2) Admin: 05/27/23 06:48 Dose: 2 mls/min Documented By: Admin: 05/27/23 05:13 Dose: 2 mls/min Documented By: Admin: 05/27/23 04:01 Dose: 2 mls/min Documented By: Admin: 05/27/23 03:55 Dose: 2 mls/min Documented By: Admin: 05/27/23 02:27 Dose: 2 mls/min Documented By: PRINCESS Lorazepam 3 mg/ Syringe 3 mls @ 2 mls/min IV ONCE PRN; Protocol PRN Reason: EtOH Withdrawal AWSS Score 10+ Last Admin: 05/26/23 22:45 Dose: 2 mls/min Documented By: PRINCESS Thiamine HCl 100 mg/ Syringe 10 mls @ 2 mls/min IV NOW STA Stop: 05/26/23 21:33 Last Admin: 05/26/23 22:45 Dose: 2 mls/min Documented By: PRINCESS Magnesium Sulfate/Dextrose (Magnesium Sulfate / D5w) 1 gm in 100 mls @ 50 mls/hr IV Q2H JOSE Stop: 05/27/23 05:59 Last Infusion: 05/27/23 07:17 Dose: Infused Documented By: MIC(2) Admin: 05/27/23 04:39 Dose: 50 mls/hr Documented By: Infusion: 05/27/23 04:39 Dose: Infused Documented By: Bruce Admin: 05/27/23 02:30 Dose: 50 mls/hr Documented By: Bruce Infusion: 05/27/23 02:29 Dose: Infused Documented By: Bruce Admin: 05/27/23 00:24 Dose: 50 mls/hr Documented By: Bruce Infusion: 05/27/23 00:24 Dose: Infused Documented By: Bruce Admin: 05/26/23 22:48 Dose: 50 mls/hr Documented By: Bruce Potassium Chloride (K José / Wtr) 10 meq in 100 mls @ 100 mls/hr IV Q1H JOSE Stop: 05/27/23 12:59 Last Infusion: 05/27/23 15:11 Dose: Infused Documented By: LAYTONG(2) Admin: 05/27/23 13:59 Dose: 100 mls/hr Documented By: LAYTONG(2) Infusion: 05/27/23 13:58 Dose: Infused Documented By: LAYTONG(2) Admin: 05/27/23 12:58 Dose: 100 mls/hr Documented By: LAYTONG(2) Infusion: 05/27/23 12:58 Dose: Infused Documented By: LAYTONG(2) Admin: 05/27/23 12:02 Dose: 100 mls/hr Documented By: KEG(2) Infusion: 05/27/23 12:02 Dose: Infused Documented By: LAYTONG(2) Admin: 05/27/23 11:04 Dose: 100 mls/hr Documented By: LAYTONG(2) Infusion: 05/27/23 11:04 Dose: Infused Documented By: LAYTONG(2) Admin: 05/27/23 10:05 Dose: 100 mls/hr Documented By: LAYTONG(2) Infusion: 05/27/23 09:59 Dose: Infused Documented By: LAYTONG(2) Admin: 05/27/23 08:59 Dose: 100 mls/hr Documented By: LAYTONG(2) Infusion: 05/27/23 08:32 Dose: Infused Documented By: LAYTONG(2) Admin: 05/27/23 07:32 Dose: 100 mls/hr Documented By: MIC(2) Infusion: 05/27/23 07:18 Dose: Infused Documented By: MIC(2) Admin: 05/27/23 06:18 Dose: 100 mls/hr Documented By: Infusion: 05/27/23 06:17 Dose: Infused Documented By: Admin: 05/27/23 05:14 Dose: 100 mls/hr Documented By: Infusion: 05/27/23 05:05 Dose: Infused Documented By: Admin: 05/27/23 04:05 Dose: 100 mls/hr Documented By: PRINCESS Aztreonam 2,000 mg/ Dextrose 100 mls @ 100 mls/hr IV Q8H JOSE Stop: 06/06/23 02:59 Last Infusion: 05/28/23 11:41 Dose: Infused Documented By: MIC(2) Admin: 05/28/23 10:22 Dose: 100 mls/hr Documented By: LUNA(2) Infusion: 05/28/23 03:03 Dose: Infused Documented By: CHACHA(2) Admin: 05/28/23 02:03 Dose: 100 mls/hr Documented By: CHACHA(2) Infusion: 05/27/23 20:28 Dose: Infused Documented By: CHACHA(2) Admin: 05/27/23 19:28 Dose: 100 mls/hr Documented By: CHACHA(2) Infusion: 05/27/23 10:49 Dose: Infused Documented By: MIC(2) Admin: 05/27/23 09:42 Dose: 100 mls/hr Documented By: MIC(2) Infusion: 05/27/23 05:05 Dose: Infused Documented By: Admin: 05/27/23 04:02 Dose: 100 mls/hr Documented By: PRINCESS Sodium Chloride (Nss) 1,000 mls @ 80 mls/hr IV .[id number] ONE Stop: 05/27/23 15:29 Last Infusion: 05/27/23 09:05 Dose: Infused Documented By: MIC(2) Admin: 05/27/23 04:06 Dose: 80 mls/hr Documented By: PRINCESS Dexamethasone 2 mg/ Syringe 0.5 mls @ 1 mls/min IV NOW STA Stop: 05/27/23 02:05 Last Admin: 05/27/23 02:31 Dose: 1 mls/min Documented By: JJH Calcium Gluconate 1,000 mg/ (Sodium Chloride) 60 mls @ 240 mls/hr IV Q15M JOSE Stop: 05/27/23 09:14 Last Infusion: 05/27/23 10:40 Dose: Infused Documented By: MIC(2) Admin: 05/27/23 10:05 Dose: 240 mls/hr Documented By: MIC(2) Infusion: 05/27/23 09:14 Dose: Infused Documented By: MIC(2) Admin: 05/27/23 08:59 Dose: 240 mls/hr Documented By: MIC(2) Thiamine HCl 200 mg/ Sodium (Chloride) 52 mls @ 210 mls/hr IV Q8H JOSE Stop: 06/26/23 11:59 Last Infusion: 05/31/23 12:10 Dose: Infused Documented By: Admin: 05/31/23 11:52 Dose: 210 mls/hr Documented By: Infusion: 05/31/23 05:32 Dose: Infused Documented By: Admin: 05/31/23 04:22 Dose: 210 mls/hr Documented By: Infusion: 05/30/23 21:30 Dose: Infused Documented By: Admin: 05/30/23 21:14 Dose: 210 mls/hr Documented By: Infusion: 05/30/23 14:07 Dose: Infused Documented By: LISSA(2) Admin: 05/30/23 13:50 Dose: 210 mls/hr Documented By: Infusion: 05/30/23 03:39 Dose: Infused Documented By: [id number] Admin: 05/30/23 03:19 Dose: 210 mls/hr Documented By: [id number] Infusion: 05/29/23 20:31 Dose: Infused Documented By: [id number] Admin: 05/29/23 20:11 Dose: 210 mls/hr Documented By: [id number] Infusion: 05/29/23 13:44 Dose: Infused Documented By: LUNA(2) Admin: 05/29/23 11:58 Dose: 210 mls/hr Documented By: LUNA(2) Infusion: 05/29/23 04:35 Dose: Infused Documented By: Admin: 05/29/23 04:16 Dose: 210 mls/hr Documented By: Infusion: 05/28/23 20:50 Dose: Infused Documented By: Admin: 05/28/23 20:32 Dose: 210 mls/hr Documented By: Infusion: 05/28/23 12:03 Dose: Infused Documented By: KEG(2) Admin: 05/28/23 11:48 Dose: 210 mls/hr Documented By: CM(2) Infusion: 05/28/23 03:17 Dose: Infused Documented By: CAROL ANNB(2) Admin: 05/28/23 03:02 Dose: 210 mls/hr Documented By: DMB(2) Infusion: 05/27/23 20:31 Dose: Infused Documented By: CAROL ANNB(2) Admin: 05/27/23 20:16 Dose: 210 mls/hr Documented By: CAROL ANNB(2) Infusion: 05/27/23 12:25 Dose: Infused Documented By: MIC(2) Admin: 05/27/23 12:02 Dose: 210 mls/hr Documented By: MIC(2) Potassium Chloride/Dextrose/Sod Cl (D5nss + 20meq Kcl) 20 meq in 1,000 mls @ 100 mls/hr IV .Q10H JOSE; Protocol Stop: 06/26/23 08:44 Last Admin: 05/31/23 13:24 Dose: Not Given Documented By: Infusion: 05/31/23 13:24 Dose: Infused Documented By: CAROL ANNB Admin: 05/31/23 04:22 Dose: 100 mls/hr Documented By: B Infusion: 05/31/23 04:01 Dose: Infused Documented By: Admin: 05/30/23 18:01 Dose: 100 mls/hr Documented By: Infusion: 05/30/23 18:01 Dose: Infused Documented By: Admin: 05/30/23 09:39 Dose: 100 mls/hr Documented By: LISSA(2) Infusion: 05/30/23 09:39 Dose: Infused Documented By: LAKSHMIN(2) Admin: 05/29/23 23:41 Dose: 100 mls/hr Documented By: [id number] Infusion: 05/29/23 22:51 Dose: Infused Documented By: [id number] Admin: 05/29/23 12:51 Dose: 100 mls/hr Documented By: CM(2) Infusion: 05/29/23 12:39 Dose: Infused Documented By: CM(2) Admin: 05/29/23 02:39 Dose: 100 mls/hr Documented By: Infusion: 05/29/23 00:08 Dose: Infused Documented By: Admin: 05/28/23 14:08 Dose: 100 mls/hr Documented By: KEG(2) Infusion: 05/28/23 14:08 Dose: Infused Documented By: KEG(2) Admin: 05/28/23 13:28 Dose: 100 mls/hr Documented By: CM(2) Infusion: 05/28/23 13:01 Dose: Infused Documented By: CM(2) Admin: 05/28/23 03:01 Dose: 100 mls/hr Documented By: CAROL ANNB(2) Infusion: 05/28/23 03:01 Dose: Infused Documented By: DMB(2) Admin: 05/27/23 17:11 Dose: 100 mls/hr Documented By: KEG(2) Infusion: 05/27/23 17:11 Dose: Infused Documented By: KEG(2) Admin: 05/27/23 08:59 Dose: 100 mls/hr Documented By: KEG(2) Potassium Chloride (K José / Wtr) 10 meq in 100 mls @ 100 mls/hr IV Q1H [facility] Stop: 05/27/23 18:29 Last Infusion: 05/27/23 19:14 Dose: Infused Documented By: CAROL ANNB(2) Admin: 05/27/23 17:39 Dose: 100 mls/hr Documented By: KEG(2) Infusion: 05/27/23 17:39 Dose: Infused Documented By: KEG(2) Admin: 05/27/23 16:42 Dose: 100 mls/hr Documented By: KEG(2) Infusion: 05/27/23 16:42 Dose: Infused Documented By: KEG(2) Admin: 05/27/23 15:54 Dose: 100 mls/hr Documented By: KEG(2) Infusion: 05/27/23 15:43 Dose: Infused Documented By: KEG(2) Admin: 05/27/23 14:43 Dose: 100 mls/hr Documented By: KEG(2) Calcium Gluconate 1,000 mg/ (Sodium Chloride) 60 mls @ 240 mls/hr IV Q15M [facility] Stop: 05/27/23 15:14 Last Infusion: 05/27/23 16:14 Dose: Infused Documented By: MIC(2) Admin: 05/27/23 15:54 Dose: 240 mls/hr Documented By: LAYTONG(2) Infusion: 05/27/23 15:25 Dose: Infused Documented By: LAYTONG(2) Admin: 05/27/23 15:10 Dose: 240 mls/hr Documented By: LAYTONG(2) Calcium Gluconate 1,000 mg/ (Sodium Chloride) 60 mls @ 240 mls/hr IV Q15M [facility] Stop: 05/28/23 08:29 Last Infusion: 05/28/23 09:48 Dose: Infused Documented By: MIC(2) Admin: 05/28/23 09:30 Dose: 240 mls/hr Documented By: CM(2) Infusion: 05/28/23 09:23 Dose: Infused Documented By: LAYTONG(2) Admin: 05/28/23 08:45 Dose: 240 mls/hr Documented By: LAYTONG(2) Potassium Chloride (K José / Wtr) 10 meq in 100 mls @ 100 mls/hr IV Q1H [facility] Stop: 05/28/23 16:59 Last Infusion: 05/28/23 17:07 Dose: Infused Documented By: CM(2) Admin: 05/28/23 15:58 Dose: 100 mls/hr Documented By: CM(2) Infusion: 05/28/23 15:46 Dose: Infused Documented By: CM(2) Admin: 05/28/23 14:46 Dose: 100 mls/hr Documented By: CM(2) Infusion: 05/28/23 14:46 Dose: Infused Documented By: CM(2) Admin: 05/28/23 13:47 Dose: 100 mls/hr Documented By: CM(2) Infusion: 05/28/23 13:47 Dose: Infused Documented By: CM(2) Admin: 05/28/23 13:15 Dose: 100 mls/hr Documented By: CM(2) Potassium Phosphate 40 mmol/ (Sodium Chloride) 1,013.3333 mls @ 100 mls/hr IV ONE ONE Stop: 05/28/23 18:07 Last Infusion: 05/28/23 18:38 Dose: Infused Documented By: CM(2) Admin: 05/28/23 08:45 Dose: 100 mls/hr Documented By: MIC(2) Potassium Chloride (K José / Wtr) 10 meq in 100 mls @ 100 mls/hr IV Q1H [facility] Stop: 05/29/23 12:14 Last Infusion: 05/29/23 13:45 Dose: Infused Documented By: CM(2) Admin: 05/29/23 12:54 Dose: 100 mls/hr Documented By: CM(2) Infusion: 05/29/23 12:53 Dose: Infused Documented By: CM(2) Admin: 05/29/23 11:53 Dose: 100 mls/hr Documented By: CM(2) Infusion: 05/29/23 11:17 Dose: Infused Documented By: CM(2) Admin: 05/29/23 10:17 Dose: 100 mls/hr Documented By: LUNA(2) Infusion: 05/29/23 10:01 Dose: Infused Documented By: CM(2) Admin: 05/29/23 09:01 Dose: 100 mls/hr Documented By: CM(2) Magnesium Sulfate/Dextrose (Magnesium Sulfate / D5w) 1 gm in 100 mls @ 50 mls/hr IV Q2H [facility] Stop: 05/29/23 19:59 Last Infusion: 05/29/23 20:10 Dose: Infused Documented By: [id number] Admin: 05/29/23 18:09 Dose: 50 mls/hr Documented By: Infusion: 05/29/23 18:00 Dose: Infused Documented By: Admin: 05/29/23 16:00 Dose: 50 mls/hr Documented By: CM(2) Infusion: 05/29/23 16:00 Dose: Infused Documented By: CM(2) Admin: 05/29/23 14:49 Dose: 50 mls/hr Documented By: Infusion: 05/29/23 14:49 Dose: Infused Documented By: Admin: 05/29/23 12:50 Dose: 50 mls/hr Documented By: LUNA(2) Calcium Gluconate 1,000 mg/ (Sodium Chloride) 60 mls @ 240 mls/hr IV Q15M JOSE Stop: 05/29/23 12:29 Last Infusion: 05/29/23 13:45 Dose: Infused Documented By: LUNA(2) Admin: 05/29/23 13:08 Dose: 240 mls/hr Documented By: LUNA(2) Infusion: 05/29/23 13:04 Dose: Infused Documented By: LUNA(2) Admin: 05/29/23 12:49 Dose: 240 mls/hr Documented By: LUNA(2) Potassium Chloride (K José / Wtr) 10 meq in 100 mls @ 100 mls/hr IV Q1H JOSE Stop: 05/30/23 13:59 Last Infusion: 05/30/23 14:44 Dose: Infused Documented By: LAKSHMIN(2) Admin: 05/30/23 13:07 Dose: 100 mls/hr Documented By: LASKHMIN(2) Infusion: 05/30/23 13:06 Dose: Infused Documented By: LAKSHMIN(2) Admin: 05/30/23 12:06 Dose: 100 mls/hr Documented By: LAKSHMIN(2) Infusion: 05/30/23 12:06 Dose: Infused Documented By: LAKSHMIN(2) Admin: 05/30/23 11:09 Dose: 100 mls/hr Documented By: LAKSHMIN(2) Infusion: 05/30/23 11:09 Dose: Infused Documented By: LAKSHMIN(2) Admin: 05/30/23 10:16 Dose: 100 mls/hr Documented By: MHN(2) Potassium Chloride (K José / Wtr) 10 meq in 100 mls @ 100 mls/hr IV Q1H JOSE Stop: 05/30/23 17:59 Last Infusion: 05/30/23 17:23 Dose: Infused Documented By: Admin: 05/30/23 16:22 Dose: 100 mls/hr Documented By: Infusion: 05/30/23 16:22 Dose: Infused Documented By: Admin: 05/30/23 15:26 Dose: 100 mls/hr Documented By: Infusion: 05/30/23 15:26 Dose: Infused Documented By: Admin: 05/30/23 15:20 Dose: 100 mls/hr Documented By: Infusion: 05/30/23 15:08 Dose: Infused Documented By: Admin: 05/30/23 14:08 Dose: 100 mls/hr Documented By: LISSA(2) Thiamine HCl 200 mg/ Sodium (Chloride) 52 mls @ 210 mls/hr IV QAM JOSE Stop: 06/02/23 09:15 Last Infusion: 06/02/23 09:55 Dose: Infused Documented By: Admin: 06/02/23 09:16 Dose: 210 mls/hr Documented By: Infusion: 06/01/23 07:57 Dose: Infused Documented By: Admin: 06/01/23 07:42 Dose: 210 mls/hr Documented By: CHACHA Famotidine 20 mg/ Syringe 5 mls @ 2.5 mls/min IV NOW STA Stop: 05/31/23 22:50 Last Admin: 05/31/23 23:08 Dose: 2.5 mls/min Documented By: LUNA Lorazepam 0.5 mg/ Syringe 0.5 mls @ 2 mls/min IV NOW ONE Stop: 06/02/23 06:16 Last Admin: 06/02/23 10:15 Dose: Not Given Documented By: LISSA Ipratropium Parrish (Ipratropium Parrish Neb Soln 0.02% 2.5 Ml Vial) 0.5 mg INH NOW STA Stop: 05/27/23 02:09 Last Admin: 05/27/23 03:44 Dose: 0.5 mg Documented By: TY Levalbuterol HCl (Levalbuterol 1.25mg/0.5ml Neb) 1.25 mg NEB NOW STA Stop: 05/27/23 02:09 Last Admin: 05/27/23 03:44 Dose: 1.25 mg Documented By: TY Levalbuterol HCl (Levalbuterol 1.25 Mg/3 Ml Neb) Confirm Administered Dose 1.25 mg .ROUTE .STK-MED ONE Stop: 05/27/23 03:28 Last Admin: 05/27/23 03:44 Dose: 1.25 mg Documented By: TY Levetiracetam (Levetiracetam 500 Mg Tab) 500 mg PO BID JOSE Stop: 06/30/23 20:59 Last Admin: 06/02/23 09:15 Dose: 500 mg Documented By: Admin: 06/01/23 21:10 Dose: 500 mg Documented By: Admin: 06/01/23 07:36 Dose: 500 mg Documented By: Admin: 05/31/23 20:02 Dose: 500 mg Documented By: LUNA Lisinopril (Lisinopril 2.5 Mg Tab) 2.5 mg PO DAILY JOSE Stop: 06/26/23 08:59 Last Admin: 06/02/23 09:11 Dose: 2.5 mg Documented By: Admin: 06/01/23 07:37 Dose: 2.5 mg Documented By: Admin: 05/31/23 07:45 Dose: 2.5 mg Documented By: Admin: 05/30/23 09:19 Dose: 2.5 mg Documented By: LISSA(2) Admin: 05/29/23 09:00 Dose: 2.5 mg Documented By: LUNA(2) Admin: 05/28/23 07:59 Dose: 2.5 mg Documented By: MIC(2) Admin: 05/27/23 08:23 Dose: Not Given Documented By: MIC(2) Lisinopril (Lisinopril 20 Mg Tab) 20 mg PO DAILY JOSE Stop: 07/03/23 08:59 Last Admin: 06/03/23 08:06 Dose: 20 mg Documented By: ENDY Lorazepam (Lorazepam 2 Mg/1 Ml Vial) Confirm Administered Dose 2 mg .ROUTE .STK- MED ONE Stop: 05/26/23 15:02 Last Admin: 05/26/23 16:10 Dose: Not Given Documented By: MIC Lorazepam (Lorazepam 2 Mg/1 Ml Vial) 1 mg IV ONE ONE Stop: 05/26/23 15:46 Last Admin: 05/26/23 15:05 Dose: 1 mg Documented By: MIC Magnesium Chloride (Magnesium Chloride W/Calcium 64mg Delayed Rel Tab) 64 mg PO TID JOSE Stop: 06/29/23 13:59 Last Admin: 06/03/23 13:07 Dose: 64 mg Documented By: Admin: 06/03/23 08:03 Dose: 64 mg Documented By: Admin: 06/02/23 20:31 Dose: 64 mg Documented By: Admin: 06/02/23 14:05 Dose: 64 mg Documented By: Admin: 06/02/23 09:13 Dose: 64 mg Documented By: Admin: 06/01/23 21:10 Dose: 64 mg Documented By: Admin: 06/01/23 13:14 Dose: 64 mg Documented By: Admin: 06/01/23 07:37 Dose: 64 mg Documented By: Admin: 05/31/23 20:02 Dose: 64 mg Documented By: Admin: 05/31/23 14:17 Dose: 64 mg Documented By: Admin: 05/31/23 07:46 Dose: 64 mg Documented By: Admin: 05/30/23 21:14 Dose: 64 mg Documented By: Admin: 05/30/23 15:20 Dose: 64 mg Documented By: KRISTA Magnesium Hydroxide (Magnesium Hydroxide Susp 30 Ml Udc) 30 ml PO NOW ONE Stop: 06/01/23 07:43 Last Admin: 06/01/23 10:39 Dose: Not Given Documented By: CHACHA Metoprolol Tartrate (Metoprolol Tartrate 1 Mg/Ml Vial) 2.5 mg IV Q6H JOSE Stop: 06/26/23 03:59 Last Admin: 05/27/23 09:41 Dose: 2.5 mg Documented By: MIC(2) Admin: 05/27/23 04:40 Dose: 2.5 mg Documented By: JGIULIA Miconazole Nitrate (Miconazole Nitrate 2% Cr 30 Gm Tube) 1 appln EXT BID JOSE Stop: 06/28/23 23:29 Last Admin: 06/03/23 08:03 Dose: 1 appln Documented By: Admin: 06/02/23 20:31 Dose: 1 appln Documented By: Admin: 06/02/23 09:16 Dose: 1 appln Documented By: Admin: 06/01/23 21:10 Dose: 1 appln Documented By: Admin: 06/01/23 07:38 Dose: 1 appln Documented By: Admin: 05/31/23 20:01 Dose: 1 appln Documented By: Admin: 05/31/23 07:46 Dose: 1 appln Documented By: Admin: 05/30/23 21:14 Dose: 1 appln Documented By: Admin: 05/30/23 09:20 Dose: 1 appln Documented By: LISSA(2) Admin: 05/30/23 00:22 Dose: 1 appln Documented By: [id number] Mirtazapine (Mirtazapine Tab 15 Mg Tab) 30 mg PO HS JOSE Stop: 06/30/23 20:59 Last Admin: 06/02/23 20:30 Dose: 30 mg Documented By: Admin: 06/01/23 21:09 Dose: 30 mg Documented By: Admin: 05/31/23 20:02 Dose: 30 mg Documented By: LUNA Morphine Sulfate (Morphine Sulfate 4 Mg/Ml 1 Ml Carp\Vial) 3 mg IV NOW STA Stop: 05/31/23 22:55 Last Admin: 05/31/23 23:08 Dose: 3 mg Documented By: LUNA Multivitamins (Multivitamin Tab) 1 tab PO QAM JOSE Stop: 06/26/23 08:59 Last Admin: 06/03/23 08:03 Dose: 1 tab Documented By: Admin: 06/02/23 09:12 Dose: 1 tab Documented By: Admin: 06/01/23 07:38 Dose: 1 tab Documented By: Admin: 05/31/23 07:47 Dose: 1 tab Documented By: Admin: 05/30/23 09:19 Dose: 1 tab Documented By: LISSA(2) Admin: 05/29/23 09:02 Dose: 1 tab Documented By: LUNA(2) Admin: 05/28/23 07:59 Dose: 1 tab Documented By: MIC(2) Admin: 05/27/23 08:23 Dose: Not Given Documented By: MIC(2) Nifedipine (Nifedipine Extended Rel 30 Mg Tabcr) 60 mg PO NOW STA Stop: 06/02/23 15:59 Last Admin: 06/02/23 16:28 Dose: 60 mg Documented By: LISSA Phytonadione (Phytonadione 5 Mg Tab) 2.5 mg PO NOW STA Stop: 05/29/23 12:48 Last Admin: 05/29/23 13:09 Dose: 2.5 mg Documented By: LUNA(2) Potassium Chloride (Potassium Chloride Crtab 20 Meq Tabcr) 20 meq PO BID JOSE Stop: 06/30/23 12:59 Last Admin: 06/03/23 08:04 Dose: 20 meq Documented By: Admin: 06/02/23 20:31 Dose: 20 meq Documented By: Admin: 06/02/23 09:13 Dose: 20 meq Documented By: Admin: 06/01/23 21:10 Dose: 20 meq Documented By: Admin: 06/01/23 07:39 Dose: 20 meq Documented By: Admin: 05/31/23 20:01 Dose: 20 meq Documented By: Admin: 05/31/23 14:15 Dose: 20 meq Documented By: CHACHA Potassium Phosphate (Pot Phosphate Monobasic W/ Sod Tab) 2 tab PO QID JOSE Stop: 06/30/23 12:59 Last Admin: 06/03/23 13:07 Dose: 2 tab Documented By: Admin: 06/03/23 08:05 Dose: 2 tab Documented By: Admin: 06/02/23 20:31 Dose: 2 tab Documented By: Admin: 06/02/23 17:51 Dose: 2 tab Documented By: Admin: 06/02/23 14:05 Dose: 2 tab Documented By: Admin: 06/02/23 09:15 Dose: 2 tab Documented By: Admin: 06/01/23 21:43 Dose: 2 tab Documented By: Admin: 06/01/23 16:42 Dose: 2 tab Documented By: Admin: 06/01/23 13:13 Dose: 2 tab Documented By: Admin: 06/01/23 07:39 Dose: 2 tab Documented By: Admin: 05/31/23 20:02 Dose: 2 tab Documented By: Admin: 05/31/23 16:38 Dose: 2 tab Documented By: Admin: 05/31/23 14:16 Dose: 2 tab Documented By: CHACHA Thiamine HCl (Thiamine Hcl 100 Mg Tab) 100 mg PO QAM JOSE Stop: 06/26/23 08:59 Last Admin: 05/27/23 08:23 Dose: Not Given Documented By: MIC(2) Description This is a 21 electrode EEG with a single channel dedicated to limited EKG. The electrodes were placed in accordance with the International 10-20 system. REPORT: At the onset of the EEG the patient is asleep. The background is symmetric consisting of theta/delta activity. During periods of brief arousal the posterior dominant rhythm is 9 Hz. Drowsiness is characterized by theta activity with reduced blink rate and decreased myogenic artifact. Photic stimulation does not induce any abnormalities. Interpretation IMPRESSION: This is a normal awake and asleep routine EEG. No epileptiform activity is seen. The patient is asleep for most of this recording. A repeat EEG as outpatient may be beneficial when patient is more awake to better characterize his awake background if clinically appropriate.
== END 2023-06-03 14:16 | DRG 896 ==
LOC: ED 14:56 → 4W 17:14 → SUATTDRO 17:14 → 2S 17:52